=== PATIENT | male | born 1970 | race Caucasian/White ===

== ENCOUNTER 2023-05-30 07:03 | Outpatient (OUT) | payer BC, SELFPAY ==
[2023-05-30 08:48] LABS: Prostate Specific Antigen Scrn 0.31 ng/mL (<=4.00)
[2023-05-30 09:12] LABS: Alanine Aminotransferase 26 U/L (16-63); Albumin Globulin Ratio 0.9; Albumin Level 3.4 g/dL (3.4-5.0); Alkaline Phosphatase 63 U/L (46-116); Anion Gap 14.4; Aspartate Amino Transferase 18 U/L (15-37); BUN Creatinine Ratio 20.5; Bilirubin Total 0.6 mg/dL (0.2-1.0); Calcium 8.3 mg/dL (8.5-10.1); Carbon Dioxide 25.5 mmol/L (21.0-32.0); Chloride 101 mmol/L (98-107); Chol HDL Ratio 3.6; Cholesterol 138 mg/dL (<=200); Estimated GFR (African America >60 (>=60); Estimated GFR (Non-African Ame >60 (>=60); Globulin 3.7 g/dL; Glucose 108 mg/dL (74-106); HDL Cholesterol 38 mg/dL (40-60); Potassium 3.9 mmol/L (3.5-5.1); Sodium 137 mmol/L (136-145); Thyroid Stimulating Hormone 0.078 uIU/mL (0.358-3.740); Total Protein 7.1 g/dL (6.4-8.2); Triglycerides 254 mg/dL (<=150); VLDL CHOLESTEROL 50.8 mg/dL
[2023-05-30 10:05] LABS: Estimated Average Glucose 160 mg/dL; Glycohemoglobin A1C 7.2 % (4.5-6.2)
[2023-05-30 11:40] LABS: Basophils Absolute Auto 0.1 10^3/uL (0.0-0.1); Basophils Percent Auto 1.2 % (0.2-2.0); Eosinophils Absolute Auto 0.3 10^3/uL (0.0-0.7); Eosinophils Percent Auto 3.7 % (0.9-7.0); Hematocrit 47.1 % (42.0-54.0); Hemoglobin 15.8 g/dL (14.0-18.0); Immature Granulocytes Abs Auto 0.04 10^3/uL (0.00-0.03); Immature Granulocytes Pct Auto 0.6 % (0.0-0.5); Lymphocytes Percent Auto 29.8 % (20.5-60.0); Mean Corpuscular HGB Conc 33.5 g/dL (29.9-35.2); Mean Corpuscular Hemoglobin 28.5 pg (25.9-34.0); Mean Corpuscular Volume 84.9 fL (80.0-94.0); Mean Platelet Volume 12.2 fL (9.5-13.5); Monocytes Absolute Auto 0.6 10^3/uL (0.3-0.8); Monocytes Percent Auto 9.4 % (1.7-12.0); Neutrophils Absolute Auto 3.7 10^3/uL (1.4-6.5); Neutrophils Percent Auto 55.3 % (43.0-75.0); Platelet Count 132 10^3/uL (150-450); Red Blood Count 5.55 10^6/uL (4.70-6.10); Red Cell Distribution Width 13.8 % (11.0-15.0); White Blood Count 6.7 10^3/uL (4.0-11.0)
[2023-06-01 12:07] LABS: Insulin 12.4 uIU/mL (2.6-24.9)
== END 2023-05-30 07:04 | disposition home or self-care (01) ==
LOC: LAB 07:06
PROVIDERS: PCP Family Medicine; Visit Provider Family Medicine
DX: Z00.00 Encounter for general adult medical examination without abnormal findings (principal)
CPT/HCPCS: 36415; 80053; 80061; 83036; 83525; 84436; 84443; 84481; 85025; G0103

== ENCOUNTER 2024-05-29 06:32 | Outpatient (OUT) | payer BC, SELFPAY ==
--- OUTSIDE RECORDS SUMMARY | 2024-05-29 06:33 | XMS_ITS | CCD ---
Author Organization [facility] Inform ion Partnership [facility] Care Team Providers Care Calendar Control Clerk [facility] Name Role Phone PHYSICIAN, DEFAULT Unavailable Unavailable PHYSICIAN, DEFAULT Unavailable Unavailable MONI ESPINO Unavailable Unavailable Moni Espino Primary Care Physician DR MONI ESPINO Admitting Unavailable DR MONI ESPINO Attending Unavailable DR MONI ESPINO Primary Care Unavailable DR MONI ESPINO Consulting Unavailable Allergies Allergy Classification Reported Allergen(s) Allergy Type Date of Onset Reaction(s) Facility (4 sources) Penicillin; Translations: [penicillin] Drug Allergy Eruption of skin (disorder) [facility] Medications Current Medications Medication Drug Class(es) Dates Sig (Normalized) Sig (Original) acetaminophen 325 mg / oxyCODONE hydrochloride 5 mg oral tablet (1 source) Opioid Agonist Start: 11-22-2021 End: 11-27-2021 Percocet 5 mg-325 mg oral tablet 1 tab(s), Oral, q6hr Pain 8-10, 20 tab(s), Refill(s) 0, [id number], 162, cm, 11/19/21 6:31:00 EDT, Height/Length Dosing, 123.5, kg, 11/19/21 6:31:00 EDT, Weight Dosing Start Date: 11/22/21 Stop Date: 11/27/21 Status: Ordered cephalexin 500 mg oral capsule (1 source) Cephalosporin Antibacterial Start: 11-16-2021 take 1 capsule by mouth every twelve hours cephalexin 500 mg Cap 500 mg = 1 cap(s), Oral, q12hr, Refills(s) 0, Infection or prophylaxis for antibiotics Start Date: 11/16/21 Status: Ordered doxycycline hyclate 100 mg oral capsule (1 source) Tetracycline-class Drug Start: 11-22-2021 take 1 capsule by mouth twice daily doxycycline hyclate 100 mg Cap 100 mg = 1 cap(s), Oral, BID, # 10 tab(s), Refills(s) 0, Pharmacy: [id number], 162, cm, 11/19/21 6:31:00 EDT, Height/Length Dosing, 123.5, kg, 11/19/21 6:31:00 EDT, Weight Dosing Start Date: 11/22/21 Status: Ordered empagliflozin 25 mg oral tablet (3 sources) Sodium-Glucose Cotransporter 2 Inhibitor Start: 11-16-2021 take 1 tablet by mouth once daily in the morning Jardiance 25 mg oral tablet 25 mg = 1 tab(s), Oral, qAM, Refills(s) 0, Blood glucose Start Date: 11/16/21 Status: Ordered fenofibrate 145 mg oral tablet (3 sources) Peroxisome Proliferator Receptor alpha Agonist Start: 11-16-2021 take 1 tablet by mouth once daily fenofibrate 145 mg Tab 145 mg = 1 tab(s), Oral, Daily, Refills(s) 0, High cholesterol Start Date: 11/16/21 Status: Ordered fluconazole 100 mg oral tablet (1 source) Azole Antifungal Start: 02-14-2022 End: 02-21-2022 take 1 tablet by mouth once daily Diflucan 100 mg Tab 100 mg = 1 tab(s), Oral, Daily, X 7 day(s), # 7 tab(s), Refills(s) 0, Pharmacy: [id number], 163, cm, 02/14/22 15:35:00 EDT, Height/Length Dosing, 126, kg, 02/14/22 15:35:00 EDT, Weight Dosing Start Date: 02/14/22 Stop Date: 02/21/22 Status: Ordered glimepiride 4 mg oral tablet (3 sources) Sulfonylurea Start: 11-16-2021 take 1 tablet by mouth twice daily glimepiride 4 mg Tab 4 mg = 1 tab(s), Oral, BID, Refills(s) 0, Blood glucose Start Date: 11/16/21 Status: Ordered levETIRAcetam 750 mg oral tablet (3 sources) Start: 09-04-2021 take 750 mg by mouth twice daily Keppra 750 mg, Oral, BID, Refills(s) 0, Other (see comment) Start Date: 09/04/21 Status: Ordered levothyroxine sodium 0.2 mg oral tablet (3 sources) l-Thyroxine Start: 11-16-2021 take 1 tablet by mouth once daily Synthroid 200 mcg (0.2 mg) Tab 200 mcg = 1 tab(s), Oral, Daily, Refills(s) 0, Thyroid Start Date: 11/16/21 Status: Ordered Start: 11-16-2021 take 1 tablet by marino th once daily Synthroid 200 mcg (0.2 mg) Tab 200 mcg = 1 tab(s), Oral, Daily, Refills(s) 0, Thyroid Start Date: 11/16/21 Status: Ordered metFORMIN hydrochloride 500 mg oral tablet (3 sources) Biguanide Start: 11-16-2021 take 1 tablet by mouth twice daily metformin 500 mg oral tablet 500 mg = 1 tab(s), Oral, BID, Refills(s) 0, Blood glucose Start Date: 11/16/21 Status: Ordered miconazole nitrate 0.02 mg/mg topical ointment (2 sources) Azole Antifungal Start: 02-14-2022 apply 15 g topically twice daily miconazole topical 2% ointment See Instructions, 15 gm, Refill(s) 0, apply to the effected area BID for 2 weeks, [id number], 163, cm, 02/14/22 15:35:00 EDT, Height/Length Dosing, 126, kg, 02/14/22 15:35:00 EDT, Weight Dosing Start Date: 02/14/22 Status: Ordered OXcarbazepine 150 mg oral tablet (3 sources) Anti-epileptic Agent Start: 11-16-2021 take 1 tablet by mouth twice daily oxcarbazepine 150 mg Tab 150 mg = 1 tab(s), Oral, BID, Refills(s) 0, Seizure Start Date: 11/16/21 Status: Ordered pioglitazone 45 mg oral tablet (3 sources) Peroxisome Proliferator Receptor alpha Agonist, Peroxisome Proliferator Receptor gamma Agonist, Thiazolidinedione Start: 11-16-2021 take 1 tablet by mouth once daily pioglitazone 45 mg Tab 45 mg = 1 tab(s), Oral, Daily, Refills(s) 0, Blood glucose Start Date: 11/16/21 Status: Ordered sildenafil 100 mg oral tablet (1 source) Phosphodiesterase 5 Inhibitor Start: 03-11-2022 sildenafil 100 mg Tab 100 mg = 1 tab(s), Oral, As Directed, Take 30-45 minutes prior to sexual activity., # 30 tab(s), Refills(s) 1, Pharmacy: [id number], 163, cm, 03/11/22 11:25:00 EDT, Height/Length Dosing, 126, kg, 03/11/22 11:25:00 EDT, Weight Dosing Start Date: 03/11/22 Status: Ordered SITagliptin 100 mg oral tablet (3 sources) Dipeptidyl Peptidase 4 Inhibitor Start: 11-16-2021 take 1 tablet by mouth at bedtime Januvia 100 mg Tab 100 mg = 1 tab(s), Oral, Bedtime, Refills(s) 0, Blood glucose Start Date: 11/16/21 Status: Ordered tamsulosin hydrochloride 0.4 mg oral capsule (2 sources) alpha-Adrenergic Twin Start: 02-14-2022 take 1 capsule by mouth twice daily tamsulosin 0.4 mg Cap 0.4 mg = 1 cap(s), Oral, BID, # 60 cap(s), Refills(s) 11, Pharmacy: [id number], 163, cm, 02/14/22 15:35:00 EDT, Height/Length Dosing, 126, kg, 02/14/22 15:35:00 EDT, Weight Dosing Start Date: 02/14/22 Status: Ordered verapamil hydrochloride 180 mg extended release oral tablet (3 sources) Calcium Channel Twin Start: 11-16-2021 take 1 tablet by mouth at bedtime verapamil 180 mg ER Tab 180 mg = 1 tab(s), Oral, Bedtime, Refills(s) 0, High blood pressure Start Date: 11/16/21 Status: Ordered Problems Active Problems Problem Classification Problem Date Documented Date Episodic/Chronic Diabetes mellitus without complication (3 sources) Diabetes mellitus 11-16-2021 Chronic Disorders of lipid metabolism (3 sources) Hypercholesterolemia 11-16-2021 Chronic Epilepsy; convulsions (3 sources) Seizure 11-19-2021 Episodic Essential hypertension (3 sources) Hypertensive disorder 11-16-2021 Chronic Genitourinary symptoms and ill-defined conditions (4 sources) Dysuria; Translations: [Nocturia] 02-14-2022 Episodic Hyperplasia of prostate (4 sources) Benign prostatic hypertrophy with outflow obstruction; Translations: [Benign prostatic hyperplasia with lower urinary tract symptoms] Onset: 2 Chronic Miscellaneous mental health disorders (1 source) Male erectile disorder; Translations: [Erectile dysfunction] Onset: 2 Chronic Other male genital disorders (1 source) Impotence 03-11-2022 Chronic Other male genital disorders (5 sources) Phimosis; Translations: [Phimosis] Onset: 2 11-16-2021 Episodic Other nutritional; endocrine; and metabolic disorders (2 sources) Body mass index 40+ - severely obese 12-13-2021 Chronic Other screening for suspected conditions (not mental disorders or infectious disease) (1 source) Encounter for screening for malignant neoplasm of prostate; Translations: [ENC SCREEN MALIG NEOPLASM PROSTATE] Onset: 2 Episodic Residual codes; unclassified (3 sources) At risk of disease 11-16-2021 Episodic Past or Other Problems Problem Classification Problem Date Documented Da te Episodic/Chronic Other injuries and conditions due to external causes (3 sources) H/O: head injury Onset: 08-04-2016 11-16-2021 Episodic Comment on above: fell off a ladder Results Test Name Value Interpretation Reference Range Facility INSULINon 06-22-2022 Insulin 8.5 uIU/mL Normal 2.6-24.9 [facility] Comment on above: Performed By: #### I NSULIN #### [facility] [address] [address] [address] Denise Mason CBC AUTO DIFFon 06-21-2022 BASO # 0.1 103/ul Normal 0.0-0.1 [facility] Comment on above: Performed By: #### C BC #### [facility] [address] [address] [address] Denise Mason Basophils/100 WBC (Bld) 1.0 % Normal 0.2-2.0 [facility] Comment on above: Performed By: #### C BC #### [facility] [address] [address] [address] Denise Mason EO # 0.3 103/ul Normal 0.0-0.7 [facility] Comment on above: Performed By: #### C BC #### [facility] [address] [address] [address] Denise Mason Eosinophils/100 WBC (Bld) 3.0 % Normal 0.9-7.0 [facility] Comment on above: Performed By: #### C BC #### [facility] [address] [place] [address] Dr. Denise Mason Erythrocyte distribution width (RBC) [Ratio] 14.2 % Normal 11.0-15.0 [facility] Comment on above: Performed By: #### C BC #### [facility] [address] [place] [address] Dr. Denise Mason Hematocrit (Bld) [Volume fraction] 50.3 % Normal 42.0-54.0 [facility] Comment on above: Performed By: #### C BC #### [facility] [address] [place] [address] Dr. Denise Mason Hemoglobin (Bld) [Mass/Vol] 16.3 g/dL Normal 14.0-18.0 [facility] Comment on above: Performed By: #### C BC #### [facility] [address] [place] [address] Dr. Denise Mason IG # 0.05 10e3/ul Critically high 0.00-0.03 [facility] Comment on above: Performed By: #### C BC #### [facility] [address] [place] [address] Dr. Denise Mason IG % 0.6 % Critically high 0.0-0.5 [facility] Comment on above: Performed By: #### C BC #### [facility] [address] [place] [address] Dr. Denise Mason LYMPH # 2.4 103/ul Normal 1.2-3.8 [facility] Comment on above: Performed By: #### C BC #### [facility] [address] [place] [address] Dr. Denise Mason Lymphocytes/100 WBC (Bld) 29.0 % Normal 20.5-60.0 [facility] Comment on above: Performed By: #### C BC #### [facility] [address] [place] [address] Dr. Denise Mason MANUAL DIFF REQ NO Normal [facility] Comment on above: Performed By: #### C BC #### [facility] [address] [place] [address] Dr. Denise Mason MCH (RBC) [Entitic mass] 26.8 pg Normal 25.9-34.0 [facility] Comment on above: Performed By: #### C BC #### [facility] [address] [place] [address] Dr. Denise Mason MCHC (RBC) [Mass/Vol] 32.4 g/dL Normal 29.9-35.2 [facility] Comment on above: Performed By: #### C BC #### [facility] [address] [place] [address] Dr. Denise Mason MCV (RBC) [Entitic vol] 82.7 fL Normal 80.0-94.0 [facility] Comment on above: Performed By: #### C BC #### [facility] [address] [place] [address] Dr. Denise Mason MONO # 0.7 103/ul Normal 0.3-0.8 [facility] Comment on above: Performed By: #### C BC #### [facility] [address] [place] [address] Dr. Denise Mason Monocytes/100 WBC (Bld) 9.0 % Normal 1.7-12.0 [facility] Comment on above: Performed By: #### C BC #### [facility] [address] [place] [address] Dr. Denise Mason NEUT # 4.7 103/ul Normal 1.4-6.5 [facility] Comment on above: Performed By: #### C BC #### [facility] [address] [place] [address] Dr. Denise Mason Neutrophils/100 WBC (Bld) 57.4 % Normal 43.0-75.0 [facility] Comment on above: Performed By: #### C BC #### [facility] [address] [address] [address] Denise Mason Platelet mean volume (Bld) [Entitic vol] 10.5 fL Normal 9.5-13.5 [facility] Comment on above: Performed By: #### C BC #### [facility] [address] [address] [address] Denise Mason PLT 212 103/ul Normal 150-450 [facility] Comment on above: Performed By: #### C BC #### [facility] [address] [address] [address] Denise Mason RBC 6.08 106/ul Normal 4.70-6.10 [facility] Comment on above: Performed By: #### C BC #### [facility] [address] [place] [address] Dr. Denise Mason WBC 8.3 103/ul Normal 4.0-11.0 [facility] Comment on above: Performed By: #### C BC #### [facility] [address] [place] [address] Dr. Denise Mason GLYCOHEMOGLOBIN A1Con 2021 ADA RECOMMENDATION SEE BELOW Normal [facility] Comment on above: Result Comment: ADA RECOMMENDED LIMIT 4.0 - 6.0 ADA THERAPEUTIC TARGET < 7.0 ACTION SUGGESTED > 7.0 Performed By: #### A 1C #### [facility] [address] [place] [address] Dr. Denise Mason Glucose [Mass/Vol] 169 mg/dL Normal [facility] Comment on above: Performed By: #### A 1C #### [facility] [address] [place] [address] Dr. Denise Mason HbA1c (Bld) [Mass fraction] 7.5 % Critically high 4.5-6.2 [facility] Comment on above: Performed By: #### A 1C #### [facility] [address] [place] [address] Dr. Denise Mason LIPID PROFILEon 06-21-2022 CHOL-HDL RATIO NORM SEE BELOW Normal [facility] Comment on above: Result Comment: 3.3 - 4.4 LOW RISK 4.4 - 7.1 AVERAGE RISK 7.1 - 11.0 MODERATE RISK >11.0 HIGH RISK Performed By: #### C MP, LIPID, URIC #### [facility] [address] [address] [address] Denise Mason Cholesterol [Mass/Vol] 240 mg/dL Critically high <=200 [facility] Comment on above: Performed By: #### C MP, LIPID, URIC #### [facility] [address] [address] [address] Denise Mason Cholesterol in HDL [Mass/Vol] 44 mg/dL Normal 40-60 [facility] Comment on above: Performed By: #### C MP, LIPID, URIC #### [facility] [address] [place] [address] Dr. Denise Mason Cholesterol in LDL [Mass/Vol] 151.6 mg/dL Normal [facility] Comment on above: Performed By: #### C MP, LIPID, URIC #### [facility] [address] [place] [address] Dr. Denise Mason Cholesterol.total/Ch olesterol in HDL [Mass ratio] 5.5 {ratio} Normal [facility] Comment on above: Performed By: #### C MP, LIPID, URIC #### [facility] [address] [address] [address] Denise Mason HDL NORMAL > or = 60 mg/dl - LO W CARDIOVASCULAR RISK <40 mg/dl - HIGH CARDIOVASCULAR RISK Normal [facility] Comment on above: Performed By: #### C MP, LIPID, URIC #### [facility] [address] [address] [address] Denise Mason LDL CALC NORMAL SEE BELOW Normal [facility] Comment on above: Result Comment: <100 mg/dl OPTIMAL 100 - 129 mg/dl NEAR OR ABOVE OPTIMAL 130 - 159 mg/dl BORDERLINE HIGH 160 - 189 mg/dl HIGH >190 mg/dl VERY HIGH Performed By: #### C MP, LIPID, URIC #### [facility] [address] [address] [address] Denise Mason Triglyceride [Mass/Vol] 222 mg/dL Critically high <=150 [facility] Comment on above: Performed By: #### C MP, LIPID, URIC #### [facility] [address] [place] [address] Dr. Denise Mason VLDL CALC 44.4 mg/dL Normal [facility] Comment on above: Performed By: #### C MP, LIPID, URIC #### [facility] [address] [place] [address] Dr. Denise Mason PROF 14(COMP METB)on 022 Albumin [Mass/Vol] 3.9 g/dL Normal 3.4-5.0 [facility] Comment on above: Performed By: #### C MP, LIPID, URIC #### [facility] [address] [place] [address] Dr. Denise Mason Albumin/Globulin [Mass ratio] 1.0 {ratio} Normal [facility] Comment on above: Performed By: #### C MP, LIPID, URIC #### [facility] [address] [place] [address] Dr. Denise Mason ALP [Catalytic activity/Vol] 43 U/L Critically low 46-116 [facility] Comment on above: Performed By: #### C MP, LIPID, URIC #### [facility] [address] [place] [address] Dr. Denise Mason ALT [Catalytic activity/Vol] 31 U/L Normal 16-63 [facility] Comment on above: Performed By: #### C MP, LIPID, URIC #### [facility] [address] [place] [address] Dr. Denise Mason Anion gap [Moles/Vol] 12.0 mmol/L Normal [facility] Comment on above: Performed By: #### C MP, LIPID, URIC #### [facility] [address] [place] [address] Dr. Denise Mason AST [Catalytic activity/Vol] 22 U/L Normal 15-37 [facility] Comment on above: Performed By: #### C MP, LIPID, URIC #### [facility] [address] [place] [address] Dr. Denise Mason Bilirubin [Mass/Vol] 0.4 mg/dL Normal 0.2-1.0 [facility] Comment on above: Performed By: #### C MP, LIPID, URIC #### [facility] [address] [address] [address] Denise Mason Calcium [Mass/Vol] 9.2 mg/dL Normal 8.5-10.1 [facility] Comment on above: Performed By: #### C MP, LIPID, URIC #### [facility] [address] [address] [address] Denise Mason Chloride [Moles/Vol] 99 mmol/L Normal 98-107 [facility] Comment on above: Performed By: #### C MP, LIPID, URIC #### [facility] [address] [place] [address] Dr. Denise Mason CO2 [Moles/Vol] 24.4 mmol/L Normal 21.0-32.[address] [facility] Comment on above: Performed By: #### C MP, LIPID, URIC #### [facility] [address] [place] [address] Dr. Denise Mason Creatinine [Mass/Vol] 1.01 mg/dL Normal 0.70-1.30 [facility] Comment on above: Performed By: #### C MP, LIPID, URIC #### [facility] [address] [place] [address] Dr. Denise Mason EGFR-AF JORDANIAN >60 Normal >=[address] [facility] Comment on above: Performed By: #### C MP, LIPID, URIC #### [facility] [address] [place] [address] Dr. Denise Mason EGFR-NON AF JORDANIAN >60 Normal >=60 [facility] Comment on above: Performed By: #### C MP, LIPID, URIC #### [facility] [address] [place] [address] Dr. Denise Mason Globulin (S) [Mass/Vol] 3.9 g/dL Normal [facility] Comment on above: Performed By: #### C MP, LIPID, URIC #### [facility] [address] [address] [address] Denise Mason Glucose [Mass/Vol] 137 mg/dL Critically high 74-106 [facility] Comment on above: Performed By: #### C MP, LIPID, URIC #### [facility] [address] [address] [address] Denise Mason Potassium [Moles/Vol] 4.4 mmol/L Normal 3.5-5.1 [facility] Comment on above: Performed By: #### C MP, LIPID, URIC #### [facility] [address] [address] [address] Denise Mason Protein [Mass/Vol] 7.8 g/dL Normal 6.4-8.2 [facility] Comment on above: Performed By: #### C MP, LIPID, URIC #### [facility] [address] [place] [address] Dr. Denise Mason Sodium [Moles/Vol] 131 mmol/L Critically low 136-145 Th [facility] Comment on above: Performed By: #### C MP, LIPID, URIC #### [facility] [address] [address] [address] Denise Mason Urea nitrogen [Mass/Vol] 21.0 mg/dL Critically high 7.0-18.0 [facility] Comment on above: Performed By: #### C MP, LIPID, URIC #### [facility] [address] [address] [address] Denise Mason Urea nitrogen/Creatinine [Mass ratio] 20.8 mg/mg Normal [facility] Comment on above: Performed By: #### C MP, LIPID, URIC #### [facility] [address] [address] [address] Denise Mason URIC ACID SERUMon 06-21-2022 Urate [Mass/Vol] 4.9 mg/dL Normal 3.5-7.2 [facility] Comment on above: Performed By: #### C MP, LIPID, URIC #### [facility] [address] [address] [address] Denise Mason Ambulatory Visit Summaryon 0 03-11-2022 Ambulatory Visit Summary CORNELIUS OLGUIN :1970 Visit Date:03/11/2022 Ambulatory Visit Instructions Your Diagnosis BPH with urinary obstruction Erectile dysfunction Phimosis Your Care Team Attending Physician - Neto Keith MD, Landen Chapa Primary Care Physician - Moni Espino MD This Is Your Medications List tamsulosin (tamsulosin 0.4 mg Cap) Contact prescribing physician if questions or concerns empagliflozin (Jardiance 25 mg oral tablet) fenofibrate (fenofibrate 145 mg Tab) glimepiride (glimepiride 4 mg Tab) levetiracetam (Keppra) levothyroxine (Synthroid 200 mcg (0.2 mg) Tab) metformin (metformin 500 mg oral tablet) miconazole topical (miconazole topical 2% ointment) oxcarbazepine (oxcarbazepine 150 mg Tab) pioglitazone (pioglitazone 45 mg Tab) sitagliptin (Januvia 100 mg Tab) verapamil (verapamil 180 mg ER Tab) Procedures Performed Circumcision (11/22/2021), Colonoscopy. Discharge Vitals Height 163.0 cm Height 163 cm Weight 126.0 kg Weight 126 kg BMI 47.42 What to do next You Need to Schedule the Following Appointments Follow Up with Neto Keith MD, Landen Chapa, URO When: Where: [facility] [address], [place] [address]- Medications What How Much When Instructions Unchanged tamsulosin (tamsulosin 0.4 mg Cap) 1 Capsules By Mouth 2 times a day Unchanged empagliflozin (Jardiance 25 mg oral tablet) 1 Tablets By Mouth Once a day (in the morning) Contact prescribing physician if questions or concerns Unchanged fenofibrate (fenofibrate 145 mg Tab) 1 Tablets By Mouth Every day Contact prescribing physician if questions or concerns Unchanged glimepiride (glimepiride 4 mg Tab) 1 Tablets By Mouth 2 times a day Contact prescribing physician if questions or concerns Unchanged levetiracetam (Keppra) 750 Milligram By Mouth 2 times a day Contact prescribing physician if questions or concerns Unchanged levothyroxine (Synthroid 200 mcg (0.2 mg) Tab) 1 Tablets By Mouth Every day Contact prescribing physician if questions or concerns Unchanged metformin (metformin 500 mg oral tablet) 1 Tablets By Mouth 2 times a day Contact prescribing physician if questions or concerns Unchanged miconazole topical (miconazole topical 2% ointment) See instructions apply to the effected area BID for 2 weeks Contact prescribing physician if questions or concerns Unchanged oxcarbazepine (oxcarbazepine 150 mg Tab) 1 Tablets By Mouth 2 times a day Contact prescribing physician if questions or concerns Unchanged pioglitazone (pioglitazone 45 mg Tab) 1 Tablets By Mouth Every day Contact prescribing physician if questions or concerns Unchanged sitagliptin (Januvia 100 mg Tab) 1 Tablets By Mouth At bedtime Contact prescribing physician if questions or concerns Unchanged verapamil (verapamil 180 mg ER Tab) 1 Tablets By Mouth At bedtime Contact prescribing physician if questions or concerns Allergies penicillin (Rash) Problems Ongoing - Any problem that you are currently receiving treatment for. BMI 45.0-49.9, adult BPH with urinary obstruction Dysuria Erectile dysfunction Nocturia Phimosis [employer] Erectile Dysfunction Erectile dysfunction (ED) is the inability to get or keep an erection in order to have sexual intercourse. Erectile dysfunction may include: ? Inability to get an erection. ? Lack of enough hardness of the erection to allow penetration. ? Loss of the erection before sex is finished. What are the causes? This condition may be caused by: ? Certain medicines, such as: ? Pain relievers. ? Antihistamines. ? Antidepressants. ? Blood pressure medicines. ? Water pills (diuretics). ? Ulcer medicines. ? Muscle relaxants. ? Drugs. ? Excessive drinking. ? Psychological causes, such as: ? Anxiety. ? Depression. ? Sadness. ? Exhaustion. ? Performance fear. ? Stress. ? Physical causes, such as: ? Artery problems. This may include diabetes, smoking, liver disease, or atherosclerosis. ? High blood pressure. ? Hormonal problems, such as low testosterone. ? Obesity. ? Nerve problems. This may include back or pelvic injuries, diabetes mellitus, multiple sclerosis, or Parkinson disease. What are the signs or symptoms? Symptoms of this condition include: ? Inability to get an erection. ? Lack of enough hardness of the erection to allow penetration. ? Loss of the erection before sex is finished. ? Normal erections at some times, but with frequent unsatisfactory episodes. ? Low sexual satisfaction in either partner due to erection problems. ? A curved penis occurring with erection. The curve may cause pain or the penis may be too curved to allow for intercourse. ? Never having nighttime erections. How is this diagnosed? This condition is often diagnosed by: ? Performing a physical exam to find other diseases or specific problems with the (more content not included)... [facility] Patient Educationon 03-11-20 Patient Education Urology Erectile Dysfunction Erectile dysfunction (ED) is the inability to get or keep an erection in order to have sexual intercourse. Erectile dysfunction may include: ? Inability to get an erection. ? Lack of enough hardness of the erection to allow penetration. ? Loss of the erection before sex is finished. What are the causes? This condition may be caused by: ? Certain medicines, such as: ? Pain relievers. ? Antihistamines. ? Antidepressants. ? Blood pressure medicines. ? Water pills (diuretics). ? Ulcer medicines. ? Muscle relaxants. ? Drugs. ? Excessive drinking. ? Psychological causes, such as: ? Anxiety. ? Depression. ? Sadness. ? Exhaustion. ? Performance fear. ? Stress. ? Physical causes, such as: ? Artery problems. This may include diabetes, smoking, liver disease, or atherosclerosis. ? High blood pressure. ? Hormonal problems, such as low testosterone. ? Obesity. ? Nerve problems. This may include back or pelvic injuries, diabetes mellitus, multiple sclerosis, or Parkinson disease. What are the signs or symptoms? Symptoms of this condition include: ? Inability to get an erection. ? Lack of enough hardness of the erection to allow penetration. ? Loss of the erection before sex is finished. ? Normal erections at some times, but with frequent unsatisfactory episodes. ? Low sexual satisfaction in either partner due to erection problems. ? A curved penis occurring with erection. The curve may cause pain or the penis may be too curved to allow for intercourse. ? Never having nighttime erections. How is this diagnosed? This condition is often diagnosed by: ? Performing a physical exam to find other diseases or specific problems with the penis. ? Asking you detailed questions about the problem. ? Performing blood tests to check for diabetes mellitus or to measure hormone levels. ? Performing other tests to check for underlying health conditions. ? Performing an ultrasound exam to check for scarring. ? Performing a test to check blood flow to the penis. ? Doing a sleep study at home to measure nighttime erections. How is this treated? This condition may be treated by: ? Medicine taken by mouth to help you achieve an erection (oral medicine). ? Hormone replacement therapy to replace low testosterone levels. ? Medicine that is injected into the penis. Your health care provider may instruct you how to give yourself these injections at home. ? Vacuum pump. This is a pump with a ring on it. The pump and ring are placed on the penis and used to create pressure that helps the penis become erect. ? Penile implant surgery. In this procedure, you may receive: ? An inflatable implant. This consists of cylinders, a pump, and a reservoir. The cylinders can be inflated with a fluid that helps to create an erection, and they can be deflated after intercourse. ? A semi-rigid implant. This consists of two silicone rubber rods. The rods provide some rigidity. They are also flexible, so the penis can both curve downward in its normal position and become straight for sexual intercourse. ? Blood vessel surgery, to improve blood flow to the penis. During this procedure, a blood vessel from a different part of the body is placed into the penis to allow blood to flow around (bypass) damaged or blocked blood vessels. ? Lifestyle changes, such as exercising more, losing weight, and quitting smoking. Follow these instructions at home: Medicines ? Take [id number] and prescription medicines only as told by your health care provider. Do not increase the dosage without first discussing it with your health care provider. ? If you are using self-injections, perform injections as directed by your health care provider. Make sure to avoid any veins that are on the surface of the penis. After giving an injection, apply pressure to the injection site for 5 minutes. General instructions ? Exercise regularly, as directed by your health care provider. Work with your health care provider to lose weight, if needed. ? Do not use any products that contain nicotine or tobacco, such as cigarettes and e-cigarettes. If you need help quitting, ask your health care provider. ? Before using a vacuum pump, read the instructions that come with the pump and discuss any questions with your health care provider. ? Keep all follow-up visits as told by your health care provider. This is important. Contact a health care provider if: ? You feel nauseous. ? You vomit. Get help right away if: ? You are taking oral or injectable medicines and you have an erection that lasts longer than 4 hours. If your health care provider is unavailable, go to the nearest emergency room for evaluation. An erection that lasts much longer than 4 hours can result in permanent damage to your penis. ? You have severe pain in your groin or abdomen. ? You develop redness or severe swelling of your (more content not included)... [facility] Urology Office/Clinic Noteon 03-11-2022 Urology Office/Clinic Note Chief Complaint 1 month This patient has a history of phimosis that been treated with circumcision. He later had balanitis that was treated with oral and topical medications. At present he complains of erectile dysfunction which he states began after he started taking tamsulosin twice a day. He is voiding with good stream and good control. HPI Staff This is a 51 year old male here for 1 month F/U. S/P Circumcision done 11/22/21. Pt. taking Flomax 0.4mg qd. Previous DX: BPH w/LUTS and phimosis. Pain with urination:No Blood in urine:No Incomplete bladder emptying:No Frequency:No Urgency:No Nocturia:No Stream:Strong Leaking before getting to the restroom:No Urinary incontinence without sensory awareness:No Temporarily unable to restrain urination with body movement:No Flank/Back pain:No Abdominal pain:No Male genital symptoms penile:Pt. states since having Circumcision he is having issues with erections. History of Present Illness Tests reviewed: none. I have reviewed the previous health record information and history for this patient from Dr. Duque. I have reviewed and verified the staff HPI to be accurate for this encounter. There have been no associated fever, chills, flank pain, or blood in the urine. Denies any urinary infections since last encounter. Review of Systems ROS - Provider Constitutional: denies weight loss, denies hot flashes. Eyes: denies eye problems. Gastrointestinal: denies nausea, denies vomiting. Cardiovascular: denies chest pain or angina. Integumentary: no dryness Musculoskeletal: denies musculoskeletal symptoms. ENMT: denies otolaryngeal symptoms. Respiratory: no shortness of breath. Heme/Lymph: denies easy bleeding tendency, denies easy bruising tendency. Psychiatric: no confusion, no anxiety. Genitourinary: denies dysuria, denies hematuria, denies discharge, denies urinary frequency, denies urinary hesitancy, denies nocturia, denies incontinence, denies genital sores, denies decreased libido, and denies erectile dysfunction. Physical Exam Vitals & Measurements HT: 163.0 cm HT: 163 cm WT: 126.0 kg WT: 126 kg BMI: 47.42 General Appearance: alert, no distress, well nourished, well developed male. Genitourinary: normal scrotum, normal testes, normal urethra, normal epididymis, normal vas deferens/spermatic cord. Flank Pain: none. Bladder: nonpalpable. Assessment/Plan Patient will be prescribed sildenafil 100 mg for his erectile dysfunction. We discussed the risk, alternatives and potential complications of the use of this medication. It is very likely he will only need it for short period of time. He does have 30 tablets with a refill. He is going to continue tamsulosin and 0.4 mg twice a day. We will see him back in the office on an as-needed basis. 1. BPH with urinary obstruction (N40.1: Benign prostatic hyperplasia with lower urinary tract symptoms) Pt to continue Tamsulosin 0.4mg BID, pt states PCP increased to BID. Pt states he is doing well w/ urination. Denies any bothersome urinary sxs at this time. All questions/concerns were discussed. Pt. to call the office if he encounters any issues prior. Pt. acknowledges understanding. 2. Male erectile disorder (F52.21: Male erectile disorder) Pt states he has not been able to achieve an erection since PCP increased Flomax. Pt is diabetic. Discussed options for ED, including oral medications, erection pumps, MUSE intraurethral pellet, intracorporal injection therapy, and surgical options. Will start Sildenafil 100mg PRN. Discussed the medication side effects, and the patient will monitor closely for these, as well as for symptom improvement. If severe side effects occur, the medication should be stopped and the office notified. 3. Phimosis (N47.1: Phimosis) S/p Circumcision 11/22/21. Pt fully healed since surgery, pain has resolved. Orders: sildenafil, 100 mg = 1 tab(s), Oral, As Directed, Take 30-45 minutes prior to sexual activity., # 30 tab(s), Refills(s) 1, Pharmacy: [facility]/pharmacy #[id number], 163, cm, 03/11/22 11:25:00 EDT, Height/Length Dosing, 126, kg, 03/11/22 11:25:00 EDT, Weight Dosing Follow-up With When Contact Information Neto Keith MD, Landen Chapa, [facility] [address] [place] [address]- Additional Instructions: PRN Patient Education Erectile Dysfunction I, Mia Singh, personally scribed for Dr. Duque on 03/11/2022 11:40:56. . Documentation recorded by the scribe,Mia Singh, accurately reflects the services(s) I performed and decisions made by me. Authenticated by Dr. Duque on 03/11/2022 11:44:40. Problem List/Past Medical History Ongoing BMI 45.0-49.9, adult BPH with urinary obstruction Dysuria Erectile dysfunction Nocturia Phimosis Historical No qualifying data Procedure/Surgical History Circumcision (11/22/2021), Colonoscopy. Medications fenofibrate 145 mg Tab, 145 mg= 1 tab(s), Oral, D (more content not included)... [facility] Comment on above: Result Comment: Elec tronically Signed By: Landen Duque Jr., MD\.br\Date and Time Signed: 03/11/22 11:45 EDT\.br\Electronically Co-Signed By: Mia Singh\.br\Date and Time Co-Signed: 03/11/22 11:41 EDT Ambulatory Visit Summaryon 0 02-14-2022 Ambulatory Visit Summary CORNELIUS OLGUIN :1970 Visit Date:02/14/2022 Ambulatory Visit Instructions Your Diagnosis BPH with urinary obstruction Phimosis Tests Performed Urnls Dip Stick Auto w/o Microscopy POC 43025 Your Care Team Attending Physician - GINA VICTORIA PA-C Primary Care Physician - Moni Espino MD This Is Your Medications List tamsulosin (tamsulosin 0.4 mg Cap) Contact prescribing physician if questions or concerns empagliflozin (Jardiance 25 mg oral tablet) fenofibrate (fenofibrate 145 mg Tab) glimepiride (glimepiride 4 mg Tab) levetiracetam (Keppra) levothyroxine (Synthroid 200 mcg (0.2 mg) Tab) metformin (metformin 500 mg oral tablet) oxcarbazepine (oxcarbazepine 150 mg Tab) pioglitazone (pioglitazone 45 mg Tab) sitagliptin (Januvia 100 mg Tab) verapamil (verapamil 180 mg ER Tab) Procedures Performed Circumcision (11/22/2021), Colonoscopy. Discharge Vitals Heart Rate (Peripheral) 82 Blood Pressure 139/88 Height 163 cm Height 163.0 cm Weight 126 kg Weight 126.0 kg BMI 47.42 What to do next Scheduled Follow-Up Appointments Friday 11:15 AM EDT With: Neto Keith MD, Landen Chapa Where: [facility] Patient Educationon 02-15-20 Patient Education Urology Circumcision Information Boys are born with a fold of skin that covers the head of the penis (foreskin). This fold of skin is often removed shortly after with a surgery that is called circumcision. A circumcision may be done by health care providers who are involved in care. It may also be done by a specialist who cares for the urinary tract (urologist). Who should be circumcised? The decision to leave the foreskin on or to have it removed is a personal one. It is often based on uatsdin, social, or cultural beliefs. Circumcision is most often done in the first few days of life, but it may also be done later in life. In general: ? All healthy boys with a normal penis formation can be circumcised in the first few days after . ? Boys who are born early (prematurely) or who are ill should not be circumcised until they are older and stronger. ? Boys with certain deformities of the penis or deformities of the opening of the penis (urethra) should not be circumcised. How is circumcision done? ? The penis and the area around it are cleansed well. ? An injection is given to numb the area. A numbing cream may be applied to the area. ? A special clamp or ring is attached to the penis and used to remove the foreskin. ? The area is then cleansed well again. ? Medicine and gauze are applied to it. What are the benefits of circumcision? When the foreskin is removed: ? The head of the penis is easier to wash. This lowers the risk for odors, swelling, and infection. ? Some men are less likely to: ? Carry the virus that causes genital warts (human papillomavirus or HPV). ? Contract HIV (human immunodeficiency virus). ? Develop cancer of the penis. ? Get urinary infections. ? Develop inflammation of the penis. What are the risks of circumcision? Circumcision is a safe procedure. However, problems may occur, including: ? Infection. ? Bleeding. ? Removal of too much or too little foreskin. This affects the appearance of the penis. ? Irritation and narrowing of the urinary opening. This is usually temporary. ? Scarring of the penis. This may affect the way the penis functions. Summary ? Boys are born with a fold of skin that covers the head of the penis (foreskin). This fold of skin is often removed shortly after with a surgery that is called circumcision. ? When the foreskin is removed, the head of the penis is easier to wash and keep clean. ? Some men who are circumcised are less likely to carry viruses, get urinary infections, or develop cancer of the penis. ? Circumcision is a safe procedure. However, problems may occur, including infection, bleeding, scarring, and irritation and narrowing of the opening of the penis. This information is not intended to replace advice given to you by your health care provider. Make sure you discuss any questions you have with your health care provider. Document Released: 07/18/2001 Document Revised: 01/04/2019 Document Reviewed: 01/04/2019 [employer] Patient Education ? 2019 [employer]. [facility] Urology Office/Clinic Noteon 02-14-2022 Urology Office/Clinic Note Chief Complaint Pt is here for 2 month follow up to medication HPI Staff Cornelius is a 51 y.o. male here for a 2 month follow up. Previous Dx: BPH w/ urinary obstruction, nocturia, dysuria. S/P circumcision done on 11/22/21. Pt states he is having chaffing and burning when moving the skin around penis. Dysuria: denies Incomplete bladder emptying: denies Hematuria: denies Frequency: mild Urgency: denies Nocturia: 2x a night Stream: steady stream Leaking: denies Post void dripping: denies Wearing pads/ Depends: denies Urge incontinence: denies Stress incontinence: denies Incontinence without Sensory Awareness: denies Abdominal pain: denies Flank pain: denies Sexual complaints: _ History of Present Illness staff HPI reviewed and agree. Review of Systems PHQ Score Initial Depression Screen Score: 0 no fever, chills, malaise, myalgia. no rash/lesions. no chest pain, palpitations, or SOB. no abdominal pain, nausea, vomiting. no unilateral calf swelling, redness, pain Physical Exam Vitals & Measurements HR: 82(Peripheral) BP: 139/88 HT: 163 cm HT: 163.0 cm WT: 126 kg WT: 126.0 kg BMI: 47.42 General: nontoxic, NAD Mouth: moist mucosa Lungs: normal respiratory effort Cardio: regular rate, good distal perfusion Abdomen: nondistended, no suprapubic distention or tenderness, no CVA tenderness Neurologic: Grossly normal Skin: No rashes or suspicious lesions : shaft and glans show mild erythema, with diffuse white lesions and a few that appear slightly ulcerated Assessment/Plan 1. BPH with urinary obstruction (N40.1: Benign prostatic hyperplasia with lower urinary tract symptoms) was started on Flomax 0.4mg qd last visit. Pt's urgency and nocturia have improved but he does continue to have some bothersome sx. he is on a diuretic and is aware that some of the frequency/urgency is unavoidable. since he's not having any side effects we will go ahead and try doubling the Flomax and see if we can get more sx relief from the higher dose. another option in the future would be to consider anticholinergics. 2. Phimosis (N47.1: Phimosis) Pt is PO Circumcision 11/22/2021 by FRANCIE. pt c/o pain diffusely along the shaft of the penis which is worse with movement, voiding, cleaning the area. has very painful erections - so much so that he will not have any sexual activity. pt reports these sx have been present for about 3 years. he tried 'a few pills and creams' w Dr Espino prior to referral here. DLS prescribed a round of doxycycline back in november prior to circumcision. pt is now 3 mos post-op and sx have not improved at all, actually may be worse. area does not look like bacterial infection. possibly chronic fungal. considering BXO on differential, even though it's rare, the appearance and his history are suspicious. discussed case with DLS who recommends we try a round of oral + topical antifungals. will reassess within a month. Follow-up With When Contact Information JULIEN BRONSON, BREANA JEFF In 1 month 03/17/2022 EDT [address] [facility]. [place] [id number] Additional Instructions: Patient Education Circumcision Information I, Ann Rudd, personally scribed for Gina Victoria PA-C on 02/14/2022 16:19:49. . Documentation recorded by the giannaibbernard Rudd accurately reflects the services(s) I performed and decisions made by me. Authenticated by Gina Victoria PA-C on 02/14/2022 16:40:43. Problem List/Past Medical History Ongoing BMI 45.0-49.9, adult BPH with urinary obstruction Dysuria Nocturia Historical No qualifying data Procedure/Surgical History Circumcision (11/22/2021), Colonoscopy. Medications fenofibrate 145 mg Tab, 145 mg= 1 tab(s), Oral, Daily glimepiride 4 mg Tab, 4 mg= 1 tab(s), Oral, BID Januvia 100 mg Tab, 100 mg= 1 tab(s), Oral, Bedtime Jardiance 25 mg oral tablet, 25 mg= 1 tab(s), Oral, qAM Keppra, 750 mg, Oral, BID metformin 500 mg oral tablet, 500 mg= 1 tab(s), Oral, BID oxcarbazepine 150 mg Tab, 150 mg= 1 tab(s), Oral, BID pioglitazone 45 mg Tab, 45 mg= 1 tab(s), Oral, Daily Synthroid 200 mcg (0.2 mg) Tab, 200 mcg= 1 tab(s), Oral, Daily tamsulosin 0.4 mg Cap, 0.4 mg= 1 cap(s), Oral, Daily, 11 refills verapamil 180 mg ER Tab, 180 mg= 1 tab(s), Oral, Bedtime Allergies penicillin (Rash) Social History Alcohol - Denies Alcohol Use, 11/16/2021 Substance Abuse - Denies Substance Abuse, 11/16/2021 Tobacco Current vaping or e-cigarette use Smokeless Tobacco Use:. Vaping, 12/13/2021 Family History Congenital heart disease: Father. Diabetes mellitus type 1: Father. Hypertension: Father. Immunizations Vaccine Date Status influenza virus vaccine, inactivated 05/23/2021 Recorded SARS-CoV-2 mRNA (tozinameran 5y-11y) vac 11/06/2020 Recorded SARS-CoV-2 mRNA (tozinameran 5y-11y) vac 10/16/2020 Recorded Lab Results Ambulatory Point of Care Results Bilirubin Urine Dipstic (more content not included)... [facility] Comment on above: Result Comment: Elec tronically Signed By: GINA VICTORIA PA-C\.br\Date and Time Signed: 02/14/22 16:40 EDT\.br\Electronically Co-Signed By: Ann Rudd MA\.br\Date and Time Co-Signed: 02/14/22 16:20 EDT Ambulatory Visit Summaryon 0 12-13-2021 Ambulatory Visit Summary CORNELIUS OLGUIN Sammi :1970 Visit Date:12/13/2021 Ambulatory Visit Instructions Your Diagnosis Phimosis BPH with urinary obstruction BMI 45.0-49.9, adult Other obstructive and reflux uropathy Tests Performed Urnls Dip Stick Auto w/o Microscopy POC 18902 Your Care Team Attending Physician - GINA VICTORIA PA-C Primary Care Physician - Moni Espino MD This Is Your Medications List tamsulosin (tamsulosin 0.4 mg Cap) Contact prescribing physician if questions or concerns empagliflozin (Jardiance 25 mg oral tablet) fenofibrate (fenofibrate 145 mg Tab) glimepiride (glimepiride 4 mg Tab) levetiracetam (Keppra) levothyroxine (Synthroid 200 mcg (0.2 mg) Tab) metformin (metformin 500 mg oral tablet) oxcarbazepine (oxcarbazepine 150 mg Tab) pioglitazone (pioglitazone 45 mg Tab) sitagliptin (Januvia 100 mg Tab) verapamil (verapamil 180 mg ER Tab) [Image Removed: STOP]Stop taking these medications cephalexin (cephalexin 500 mg Cap) doxycycline (doxycycline hyclate 100 mg Cap) Procedures Performed Circumcision (11/22/2021), Colonoscopy. Discharge Vitals Heart Rate (Peripheral) 78 Blood Pressure 149/91 Height 163.0 cm Height 163 cm Weight 126.0 kg Weight 126 kg BMI 47.42 What to do next Scheduled Follow-Up Appointments 2021 3:15 PM EDT With: GINA VICTORIA PA-C Where: [facility] Ambulatory Visit Summary CORNELIUS OLGUIN :1970 Visit Date:12/13/2021 Ambulatory Visit Instructions Your Diagnosis Phimosis BPH with urinary obstruction BMI 45.0-49.9, adult Other obstructive and reflux uropathy Tests Performed Urnls Dip Stick Auto w/o Microscopy POC 71717 Your Care Team Attending Physician - GINA VICTORIA PA-C Primary Care Physician - Moni Espino MD This Is Your Medications List doxycycline (doxycycline hyclate 100 mg Cap) Contact prescribing physician if questions or concerns cephalexin (cephalexin 500 mg Cap) empagliflozin (Jardiance 25 mg oral tablet) fenofibrate (fenofibrate 145 mg Tab) glimepiride (glimepiride 4 mg Tab) levetiracetam (Keppra) levothyroxine (Synthroid 200 mcg (0.2 mg) Tab) metformin (metformin 500 mg oral tablet) oxcarbazepine (oxcarbazepine 150 mg Tab) pioglitazone (pioglitazone 45 mg Tab) sitagliptin (Januvia 100 mg Tab) verapamil (verapamil 180 mg ER Tab) Procedures Performed Circumcision (11/22/2021), Colonoscopy. Discharge Vitals Heart Rate (Peripheral) 78 Blood Pressure 149/91 Height 163.0 cm Height 163 cm Weight 126.0 kg Weight 126 kg BMI 47.42 What to do next You Need to Schedule the Following Appointments Follow Up with GINA VICTORIA PA-C, LEATHAL When: In 3 months 03/15/2022 EDT Where: [address] [place] [address] Medications What How Much When Instructions Unchanged doxycycline (doxycycline hyclate 100 mg Cap) 1 Capsules By Mouth 2 times a day Unchanged cephalexin (cephalexin 500 mg Cap) 1 Capsules By Mouth Every 12 hours Contact prescribing physician if questions or concerns Unchanged empagliflozin (Jardiance 25 mg oral tablet) 1 Tablets By Mouth Once a day (in the morning) Contact prescribing physician if questions or concerns Unchanged fenofibrate (fenofibrate 145 mg Tab) 1 Tablets By Mouth Every day Contact prescribing physician if questions or concerns Unchanged glimepiride (glimepiride 4 mg Tab) 1 Tablets By Mouth 2 times a day Contact prescribing physician if questions or concerns Unchanged levetiracetam (Keppra) 750 Milligram By Mouth 2 times a day Contact prescribing physician if questions or concerns Unchanged levothyroxine (Synthroid 200 mcg (0.2 mg) Tab) 1 Tablets By Mouth Every day Contact prescribing physician if questions or concerns Unchanged metformin (metformin 500 mg oral tablet) 1 Tablets By Mouth 2 times a day Contact prescribing physician if questions or concerns Unchanged oxcarbazepine (oxcarbazepine 150 mg Tab) 1 Tablets By Mouth 2 times a day Contact prescribing physician if questions or concerns Unchanged pioglitazone (pioglitazone 45 mg Tab) 1 Tablets By Mouth Every day Contact prescribing physician if questions or concerns Unchanged sitagliptin (Januvia 100 mg Tab) 1 Tablets By Mouth At bedtime Contact prescribing physician if questions or concerns Unchanged verapamil (verapamil 180 mg ER Tab) 1 Tablets By Mouth At bedtime Contact prescribing physician if questions or concerns Test Results Urnls Dip Stick Auto w/o Microscopy POC [id number] (12/13/2021) Bilirubin Urine Dipstick - Negative Blood Urine Dipstick - Trace-intact Glucose Urine Dipstick - 2+ 500 mg/dl Ketones Urine Dipstick - Negative Leukocytes Urine Dipstick - Negative Nitrite Urine Dipstick - Negative Protein Urine Dipstick - Negative Specific [place] Urine Dipstick - 1.020 Urine Appearance Urine Dipstick - Clear Urine Color Urine Dipstick - Yellow Urobilinogen Urine Dipstick - Normal 0.2-1 EU/dl pH Urine Dipstick - 7 Allergies penicillin (Rash) Problems Ongoing - Any problem that you are currently receiving treatment for. BMI 45.0-49.9, adult BPH with urinary obstruction Nocturia Education Materials Testicular Self-Exam A self-exam of your testicles (testicular self-exam) is looking at and feeling your testicles for unusual lumps or swelling. Swelling, lumps, or pain can be caused by: ? Injuries. ? Puffiness, redness, and soreness (inflammation). ? Infection. ? Extra fluids around your testicle (hydrocele). ? Twisted testicles (testicular torsion). ? Cancer of the testicle (testicular cancer). Why is it important to do a self-exam of testicles? You may need to do self-exams if you are at risk for cancer of the testicles. You may be at risk if you have: ? A testicle that has not descended (cryptorchidism). ? A history of cancer of the testicle. ? A family history of cancer of the testicle. How to do a self-exam of testicles It is easiest to do a self-exam after a warm bath or shower. Testicles are harder to examine when you are cold. A normal testicle is egg-shaped and feels firm. It is smooth, and it is not tender. At the back of your testicles, there is a firm cord that feels like spaghetti (spermatic cord). Look and feel for changes ? Stand and hold your penis away from your body. ? L (more content not included)... [facility] Patient Educationon 12-14-19 Patient Education Nutrition Calorie Counting for Weight Loss Calories are units of energy. Your body needs a certain amount of calories from food to keep you going throughout the day. When you eat more calories than your body needs, your body stores the extra calories as fat. When you eat fewer calories than your body needs, your body vazquez fat to get the energy it needs. Calorie counting means keeping track of how many calories you eat and drink each day. Calorie counting can be helpful if you need to lose weight. If you make sure to eat fewer calories than your body needs, you should lose weight. Ask your health care provider what a healthy weight is for you. For calorie counting to work, you will need to eat the right number of calories in a day in order to lose a healthy amount of weight per week. A dietitian can help you determine how many calories you need in a day and will give you suggestions on how to reach your calorie goal. ? A healthy amount of weight to lose per week is usually 1?2 lb (0.5?0.9 kg). This usually means that your daily calorie intake should be reduced by 500?750 calories. ? Eating 1,200 ? 1,500 calories per day can help most women lose weight. ? Eating 1,500 ? 1,800 calories per day can help most men lose weight. What is my plan? My goal is to have calories per day. If I have this many calories per day, I should lose around pounds per week. What do I need to know about calorie counting? In order to meet your daily calorie goal, you will need to: ? Find out how many calories are in each food you would like to eat. Try to do this before you eat. ? Decide how much of the food you plan to eat. ? Write down what you ate and how many calories it had. Doing this is called keeping a food log. To successfully lose weight, it is important to balance calorie counting with a healthy lifestyle that includes regular activity. Aim for 150 minutes of moderate exercise (such as walking) or 75 minutes of vigorous exercise (such as running) each week. Where do I find calorie information? The number of calories in a food can be found on a Nutrition Facts label. If a food does not have a Nutrition Facts label, try to look up the calories online or ask your dietitian for help. Remember that calories are listed per serving. If you choose to have more than one serving of a food, you will have to multiply the calories per serving by the amount of servings you plan to eat. For example, the label on a package of bread might say that a serving size is 1 slice and that there are 90 calories in a serving. If you eat 1 slice, you will have eaten 90 calories. If you eat 2 slices, you will have eaten 180 calories. How do I keep a food log? Immediately after each meal, record the following information in your food log: ? What you ate. Don't forget to include toppings, sauces, and other extras on the food. ? How much you ate. This can be measured in cups, ounces, or number of items. ? How many calories each food and drink had. ? The total number of calories in the meal. Keep your food log near you, such as in a small notebook in your pocket, or use a mobile nadia or website. Some programs will calculate calories for you and show you how many calories you have left for the day to meet your goal. What are some calorie counting tips? ? Use your calories on foods and drinks that will fill you up and not leave you hungry: ? Some examples of foods that fill you up are nuts and nut butters, vegetables, lean proteins, and high-fiber foods like whole grains. High-fiber foods are foods with more than 5 g fiber per serving. ? Drinks such as sodas, specialty coffee drinks, alcohol, and juices have a lot of calories, yet do not fill you up. ? Eat nutritious foods and avoid empty calories. Empty calories are calories you get from foods or beverages that do not have many vitamins or protein, such as candy, sweets, and soda. It is better to have a nutritious high-calorie food (such as an avocado) than a food with few nutrients (such as a bag of chips). ? Know how many calories are in the foods you eat most often. This will help you calculate calorie counts faster. ? Pay attention to calories in drinks. Low-calorie drinks include water and unsweetened drinks. ? Pay attention to nutrition labels for low fat or fat free foods. These foods sometimes have the same amount of calories or more calories than the full fat versions. They also often have added sugar, starch, or salt, to make up for flavor that was removed with the fat. ? Find a way of tracking calories that works for you. Get creative. Try different apps or programs if writing down calories does not work for you. What are some portion control tips? ? Know how many calories are in a serving. This will help you know how many servings of a certain food you can have. ? Use a measuring cup to measure serving sizes. You could (more content not included)... [facility] Urology Office/Clinic Noteon 12-13-2021 Urology Office/Clinic Note Chief Complaint pt is here for f/u to circumcsion done 11/22/21 HPI Staff pt is here for f/u to circumcision done on 11/22/21. pt says skin grew back over where his stitches are, pt says the incision doesn't bother him, but the skin is burning. pt is getting up 3-4x at night & having some urgency. PVR- Dysuria: _denies Incomplete bladder emptying: _not sure Hematuria: _denies visibly,UA shows trace-intact Frequency: _denies Urgency: _yes, has to go right away Nocturia: _3-4x Stream: _steady Leaking: _every now & then Post void dripping: _a little Wearing pads/ Depends: _denies Urge incontinence: _denies Stress incontinence: _denies Incontinence without Sensory Awareness: _denies Abdominal pain: _denies Flank pain: _denies Sexual complaints: _ History of Present Illness Pt is here for follow up to Circumcision Pt has no associated symptoms, no fever, no chills, no flank pain. I have reviewed the previous health record information and history for this patient from Dr. Duque Review of Systems no fever, chills, malaise, myalgia. no rash/lesions. no chest pain, palpitations, or SOB. no abdominal pain, nausea, vomiting. no unilateral calf swelling, redness, pain Physical Exam Vitals & Measurements HR: 78(Peripheral) BP: 149/91 HT: 163.0 cm HT: 163 cm WT: 126.0 kg WT: 126 kg BMI: 47.42 General: nontoxic, NAD Mouth: moist mucosa Lungs: normal respiratory effort Cardio: regular rate, good distal perfusion Abdomen: nondistended, no suprapubic distention or tenderness, no CVA tenderness Neurologic: Grossly normal Skin: No rashes or suspicious lesions : well healed, no redness/swelling/tende rness Assessment/Plan Will return for follow up in 3 months 1. Phimosis (N47.1: Phimosis) Pt is PO Circumcision 11/22/2021 Incision healing well. No redness. no difficulty initiating stream now. 2. BPH with urinary obstruction (N40.1: Benign prostatic hyperplasia with lower urinary tract symptoms) Pt is not currently on any prostate medications. Pt is having Nocturia 3-4, daytimes Urgency, post-void dribbling. these sx are bothersome. discussed risks/benefits of BPH medication therapy. side effects discussed. pt would like to try adding Tamsulosin 0.4mg qd. return in 2-3 mos to assess improvement. Follow-up With When Contact Information JULIEN BRONSON, BREANA JEFF In 3 months 03/15/2022 EDT [address] [place] [address] Additional Instructions: Patient Education Testicular Self-Exam, [id number] Calorie Counting for Weight Loss I, Brittani Husain, personally scribed for Gina Victoria PA-C on 12/13/2021 14:39:01. . Documentation recorded by the scribbernard Husain accurately reflects the services(s) I performed and decisions made by me. Authenticated by Gina Victoria PA-C on 12/13/2021 14:43:04. Problem List/Past Medical History Ongoing BMI 45.0-49.9, adult BPH with urinary obstruction Nocturia Historical No qualifying data Procedure/Surgical History Circumcision (11/22/2021), Colonoscopy. Medications cephalexin 500 mg Cap, 500 mg= 1 cap(s), Oral, q12hr, Not taking doxycycline hyclate 100 mg Cap, 100 mg= 1 cap(s), Oral, BID, Not taking fenofibrate 145 mg Tab, 145 mg= 1 tab(s), Oral, Daily glimepiride 4 mg Tab, 4 mg= 1 tab(s), Oral, BID Januvia 100 mg Tab, 100 mg= 1 tab(s), Oral, Bedtime Jardiance 25 mg oral tablet, 25 mg= 1 tab(s), Oral, qAM Keppra, 750 mg, Oral, BID metformin 500 mg oral tablet, 500 mg= 1 tab(s), Oral, BID oxcarbazepine 150 mg Tab, 150 mg= 1 tab(s), Oral, BID pioglitazone 45 mg Tab, 45 mg= 1 tab(s), Oral, Daily Synthroid 200 mcg (0.2 mg) Tab, 200 mcg= 1 tab(s), Oral, Daily verapamil 180 mg ER Tab, 180 mg= 1 tab(s), Oral, Bedtime Allergies penicillin (Rash) Social History Alcohol - Denies Alcohol Use, 11/16/2021 Substance Abuse - Denies Substance Abuse, 11/16/2021 Tobacco Current vaping or e-cigarette use Smokeless Tobacco Use:. Vaping, 12/13/2021 Family History Congenital heart disease: Father. Diabetes mellitus type 1: Father. Hypertension: Father. Immunizations Vaccine Date Status influenza virus vaccine, inactivated 05/23/2021 Recorded SARS-CoV-2 mRNA (tozinameran 5y-11y) vac 11/06/2020 Recorded SARS-CoV-2 mRNA (tozinameran 5y-11y) vac 10/16/2020 Recorded Lab Results Ambulatory Point of Care Results Bilirubin Urine Dipstick: Negative (12/13/21 14:12:00) Blood Urine Dipstick: Trace-intact (12/13/21 14:12:00) Glucose Urine Dipstick: 2+ 500 mg/dl (12/13/21 14:12:00) Ketones Urine Dipstick: Negative (12/13/21 14:12:00) Leukocytes Urine Dipstick: Negative (12/13/21 14:12:00) Nitrite Urine Dipstick: Negative (12/13/21 14:12:00) Protein Urine Dipstick: Negative (12/13/21 14:12:00) Specific [place] Urine Dipstick: 1.020 (12/13/21 14:12:00) Urine Appearance Urine Dipstick: Clear (12/13/21 14:12:00) Urine Color Urine Dipstick: Ye (more content not included)... [facility] Comment on above: Result Comment: Elec tronically Signed By: GINA VICTORIA PA-C\.br\Date and Time Signed: 12/13/21 14:43 EDT\.br\Electronically Co-Signed By: Brittani Husain\.br\Date and Time Co-Signed: 12/13/21 14:39 EDT IntraOperative Documentson 0 11-27-2021 IntraOperative Documents [id number]#1. 00CD:127 [facility] Postoperative Documentson Postoperative Documents [id number]#1. 00CD:127 [facility] Coding Summary.on 11-26-2021 Coding Summary. CD:[id number] Gh 0bWw+PGhlYWQ+NT6SIKReM 11waUAotR2KU5qOIN5KRVB YSDMAAS4YQP0zxIK0BVmhE 2VybiAv QiduvNGnTF48QNb8DLI4yF xqSBqpcE4bjQVdM5u5YlQm NY84rF44RNatEZWxZuD1Jz ZpbjsgbWFy S0ubVgPevHEdWgu+PHRhYm xlIHdpZHRoPScxMDAlJyBz rCtdDN6iKk5aUYWdURDeiB xhcHNlOiBj z2eaIPPoCMehQI3tnEkwS7 NyaXJ8ONIuf7u2Cb41vCA+ ZQBsOJV3jCsbVUofp616Aw Maz1igZDM1 dANeTMehYLZ3U06oj0F9CX PcDLFkIPT9bAX9jW8ysTzp jbemH9NwqFCoWyM8YCH0vB FrxH1koItu uzkccT1qKdc+D16KRX9HDZ HAZN8OLba6M8XrOmayzIN+ UP26DUPbUY94sGLvuHMzy6 tksNz7IyVx IKMwLJN9oUswHSzkl4SuTE SzT55fxANef7W6UANmyYuy mFHmDvZsqPY3qH6iDUjwsa xnv2rnrcbp Batik7qkaq60tT64P19rFI taZYTbDYR9UPVbVTUdqPwb hz1zdV8vPe4+GOlsb2kch6 sojQc3TeOu CHGqwaNmmPumBWR6i1DoCv 51A3LntJguo4ZwGtd5tt57 xDMgt5T2rQI3DTtsBQUhjU 7iHIboZdJ7 VYUqWpUxqB54xLJcWLskOr 8jhOafkYsvEM5xRVGcmdnm HPDynZ0lEYHnqURwoFaiZM 4wNTBpbjtm z443XxKvUQX2XPWuoROzS0 TykB3cEzNjRGJhNZYiZ5Vm qQIlBUtuC522UBpwUlJ2IF YuilHmT8Xf XCFogVizSjI0w0O1Gn9Rx9 MpomucXAB0WVitQSS1PmZ2 PbJgQkO8E9SpBtd9QEHyhL qdCM8nH0Gf XGUaebmykkjscYC3RCUjJV RqxO08sWKyHIyqWv2wq4O9 i842SNPbWDWjiW55Om1yqZ ogMTBwdCBU gK0emirly2rzxipuDhSmML MyMTq8MTo6GXLixAqtLpSo ANC2AvX7YZU3wCKmkY1erS evnzjpfX8o Oyc+V66dcW8pQVU9RRT1yd zlOVPvctRwGB48NL19C8Hn PjwvdGFibGU+PGRpdiBzdH qxSB6wQeTf b2ddn0OdYTryA2WbTFJdSD jeFnh6EEXtKZP1yAX4zK2r QCOlPNfqr8N8uMR0V6Ozob Vqvk9zc3ak VAVqSJdpC21auJObj4A2RU IrrUT0PZLysLidTcDxfP25 Oyc+AWLhrXkjf4RvLwcbr1 ami2amsRn1 YaGyXPGzakHhxQojFXL0j0 XbMs29U00eWZqqCOGsYCWe VQXaFBWiqHtfrq5rnC6uIt 8+PGNvbCB3 zLE1dN3nXKGjStF0BBtjY0 01UjFupAUaVnrhx7peh9hg hXx0JlTqGJMzjkPmyYbyKC U4y4QnOg79 K06pBZxeCBJaTXClUWTpFI AunNleot2gqJ9bTl7+PC9j a4tjfw27mF11tBD+PHRkIH H4aStzQXem FRJewY5pXFxoFpG3MAHzMo FbuE25uEFjVKnmEc6csSun eVguIS6qMNGhmwtsm000Ek Gvn4qzGHAg mTKkFIyxEXB1S21xe7D8CL EoDCXeTWZ2pTY0qW7nwSre bjogbGVmdDsgdmVydGljYW vjCDklB253 IHRvcDsnPlBhdGllbnQgTm RyGEa8F9IfTye0VTUcmCqi MX8ziNKqDUlvAt9hjMfssD ptPH0lQZWd brzuy655WxArp0vaZLWlbO OjTKngJEC5M02jv8N1EGFo AJSjHDT7mWA7lB7dhHexlz ogbGVmdDsg neMggErmUMclSDavT459CA RvcDsnPkJpcnRoIERhdGU6 VL51RX70tIDqf4A9fRC1E3 BhZGRpbmct qbbpnNW5VCAaFHHozL73Dw 7uiTujFk3vEXJeBOL4WMTz wSLpB9NpwN8dCzMsLYSpVA VjS7GtsNDn AVflJ964UKxmFiA6UMWnvm UhM2NiYFQliPknXmD8q9Z0 Tr3RO8E9RZ72NB70jMBmy7 Z2vKP2O7Jd YEZrggqksjtezJR7NPOwKW IreP40Hk5jjWewTo3kUVAs FTV0NVMjuAVeM2NbfI3lPs AjMDAwMDAw U3SvaFRnVFwiO192EFeqIk J3IVZuznXyY5FeVVVbzVqc BzV2x2V1Fs4KXQk7AS81TR 33uJWca6G3 zTN3W7MhCTMsqgszldqqgN I0RCBoVXAqgJ52Fp9scOon Pb2uKXFyCJN0FTDdoNNgA4 OvlC4vJaIw LYCvKEVpU1WlpVRgSQlnE4 82FHmpIuK9XONozpXlC2Sh FTOmfMqbGdR3n2X3Ng1JJU OrBL42WQQ1 jQA9MC47IN93D4ZaLphsmG FibGU+PHRhYmxlIHdpZHRo FKmyJOVuJgKzzYolKL4nNn 9yZGVyLWNv aJvclPNsGnOna1eoIUGfWF xyKA2opVeeJ2YccJS7RCLu k1x5Df78O84hN8ZjwWH+PG GbePE6rBK1 eW7sJoZqEdD2QUxeQ150Iv OhuAFsQbtde3ysv6bhoPe0 JyU0YBQixzOqrPmzMLT4h8 ZfVn87Z42w IHdpZHRoPSIxNSUiIHZhbG snxw8efL2rLh8+PGNvbCB3 eXI0qI3kQsAmGdC9FPjmT7 49InRvcCIv Drilp0une0sbdJg7KdRiVS GylgTthRllCWW7p3UoJd22 F8NgnXyud0RtTer2hq55oQ Krh2E2cMX3 S0KrJEQwtgoiqYQpwOqmPU 5kWSParjbeXEIoxE5kITOb X7f4YiWyVrK1NNspD5Prfy W7FMEcfPWy ZMcvOUI1O38uh8I2AAUjWI VwMTY2iVZ2mS0nqCqudgjq bGVmdDsgdmVydGljYWwtYW nwE779CESe tNylPSAkcP2nHQYbbJXmyK twEU2xZYAycsmrYwMRH2OX XQfjQSEZLSBOSV04HR71nV Got6A8eMY5 K3CdSRJusmvhrbsqmMT6YR DtSITdoD54uASfNFqlXz0d e0U0p312RUUbPXAurN24Gd 9udDogMTBw iAWXnP1mmoowl9nemvmsSi CiUXExYRo6IQq1XCGwfBvs SdNaJVH1CtX8SJW6rGSacS 1hbGlnbjog tD3fWck+KZEgVmGqJDn0LJ wvdGQ+WSCaPUM1lIekYHvn QLXnhQ7jFACsB8r2KbFiLm Y8XFoeK4Ch RTYehomaCq99aA7qCbAqHr F1PQaqG1HtzdB8KQAgwLAo KLdiFRT7I20en9B3YOXsTT MrQPX7iVI3 mG6zkChpsiminOAbjJoqkw MfeHogJWeoYGnjO866LHAd gWbqKmIsQGnaXGAuEG60RR 96rGTiu7W7 cLE1Z1XhZWYzkmjlouabiL M7NIYkDCIgoJ03dVEsKBfm Jb9ia8D2t158ZBRtOPRbyF 75Mb6pzBhg GBIkkAUEqR8xpykgm4segc rfKgHqQLKfDOf8ONi1KVSw hJxqVkWpNPM9FuO4BIA8lS VdfR6qcBer euaonY0wXse+TWFsZTwvdG Q+RKSeOAZ0kVmqTRafVWWq nX9yAGKrB4y3QtZgOdW2TK rzE8WbSXNe kiqwAc52zP1rPqLiMeP5FC ypE3YlzaQ1EKXdoZDvFSdf AMJ7A67zz0R2VPQwPIVhOX V3gVW9pK3l bGlnbjogbGVmdDsgdmVydG zaKBkwDXyiD192XXOnxObr XdMsQrZcPPNwnnwlF6GwFF LAPCdyN0Hw K6ZrpJpygQD+CW19wm36V0 GqTggjZmg3NAYcCFS9iVZ2 fY4yATZaGBiey6P2gMD0O5 YnutPjdk1f k6oePOVsEUkoV08xgICbt5 A1CTKmvIT5ADCcwHmuUoXc yQ99Dgb+XQKzoLvoe7JqBl wmw8ltx3su nAs9BeIdKNEtpiWxnPqmDZ T0k9LmJw57E27iZUvqKGLp AOGuCYTkSZBloSfpeq3tsX 9wIi8+PGNv uMJ8cSI7kO7oInDtQfL4QN yuG249WqQjeMGbNsoio2nx y3kqeKm9VbTmBYItbxQumM piLTB0q9Fw Cb49E6UgsPjtp6JuWca6wj 88dAYhb7S9yJK9F4KvQDPi eniezJBeuZvlJA4lXBBgkh jhLODlzH2d FXHtS2v9KeMzEpD7TPdpO9 WdvxS1XXRhhJAdXXYwmOHK cN3itdqij3tmiwbkQjOlCY LcOQm2QAa7 BWJwdKtrGdHbNPP6WcR6UB C7tHEpeX1meHnogqttnE6o Oyc+FEy4q7bspHJlAD4vxF E8OD42RE78 iFLfm3Y7uLA0Q1FtJNWqip ttgvhcoNF6CBXiFGRpiQ28 Cc0ltZshYm5jAWJwFPO9HR NfyHSjF8Qb jK6dYqRxUFTsEZXzK7WyoY PhAPenY526TSlxIgP3UZGo fpLzZ6IpIJClwVepRrU2l0 Y5Wc9NTI50 MG80UJ05tGTgm4W5iJL8R1 NbRWHjzpefwhzmiBD4DEEs LWSsdF53Fw5exRqdVq1bXN EgOIS1VIQh dYNvF9MysL7yZaTnQEDvSH SoP2GwuPBsBEyjE541WObb UzD1MWVyeqVrE3TuQDIpbC ruLaA6p6J1 La2RUy08JO66SC68fKUzw7 X2wYP0L7YmCWCsppsreuae dSQ6CJVmXHOvyF82Vh7bwS umEa1oDSAx ZNI5GQMthBUfQ6MmbO0xFq CjRTOwQQDmH2PuhCZrQIug T501VMgzGfU7ECWxbhJbO6 FsLWFsaWdu KuT3w2A5Fa3NVJnizjc0V8 RkPjwvdHI+LW13YOJgFX12 oSTpkVAja4plzJp4YjPmQZ JyRKG1gDgj PSdi (more content not included)... [facility] Consent for Anesthesiaon Consent for Anesthesia [id number]#1. 00CD:127 [facility] Discharge Instructionson Discharge Instructions [id number]#1. 00CD:127 [facility] IntraOperative Documentson 0 11-23-2021 IntraOperative Documents [id number]#1. 00CD:127 [facility] Preoperative Documentson Preoperative Documents [id number]#1. 00CD:127 [facility] Preoperative Documents [id number]#1. 00CD:127 [facility] CHEMISTRYOrdered By: Lab ROP User on 11-22-2021 Glucose [Mass/Vol] 170 mg/dL High 55 - 99 mg/dL [facility] POC Subsection Comment on above: Result Comment: Kiera lamonte Meter POC Device SN [id number] Invalid Interpretation Code [facility] POC Subsection POC User ID [id number] Invalid Interpretation Code [facility] POC Subsection POC Username JEANETTE MALIK Invalid Interpretation Code [facility] POC Subsection Capillary Glucose POCon 11-03 Glucose [Mass/Vol] 170 mg/dL High 55-99 [facility] Comment on above: Result Comment: Kiera lamonte Meter Performed By: #### [id number] ####[facility] [id number] [place] [address] Consent for Procedure/Surger yon 11-22-2021 Consent for Procedure/Surgery [id number]#1. 00CD:127 [facility] Consent for Treatmenton 11-03 Consent for Treatment [id number]#1.0 0CD:127 [facility] H&P Updateon 11-22-2021 H&P Update [id number]#1. 00CD:127 [facility] Inpatient Patient Summaryon 11-22-2021 Inpatient Patient Summary [place] [id number] [facility] Clinical Discharge Instructions PERSON INFORMATION Name: [facility]#:[id number] [facility]YSICIANS Admitting Physician: Landen Duque Jr., MD Attending Physician: Landen Duque Jr., MD PCP: Moni Espino MD Discharge Diagnosis: Comment: PATIENT EDUCATION INFORMATION Instructions: Post Op Patient Instructions - FT (Custom) Medication Leaflets: Follow up: With: Address: When: GINA VICTORIA [address] [place] [address] [id number] [facility] (1) Within 2 to 4 weeks MEDICATION LIST New Medications [id number], [address], [place] [id number], [phone] acetaminophen-oxycodon e (Percocet 5 mg-325 mg oral tablet) 1 Tablets By Mouth every 6 hours as needed Pain 8-10. Refills: 0. doxycycline (doxycycline hyclate 100 mg Cap) 1 Capsules By Mouth 2 times a day. Refills: 0. Medications to Continue with No Changes Other Medications cephalexin (cephalexin 500 mg Cap) 1 Capsules By Mouth every 12 hours. empagliflozin (Jardiance 25 mg oral tablet) 1 Tablets By Mouth once a day (in the morning). fenofibrate (fenofibrate 145 mg Tab) 1 Tablets By Mouth every day. glimepiride (glimepiride 4 mg Tab) 1 Tablets By Mouth 2 times a day. levetiracetam (Keppra) 750 Milligram By Mouth 2 times a day., seizure levothyroxine (Synthroid 200 mcg (0.2 mg) Tab) 1 Tablets By Mouth every day. metformin (metformin 500 mg oral tablet) 1 Tablets By Mouth 2 times a day. oxcarbazepine (oxcarbazepine 150 mg Tab) 1 Tablets By Mouth 2 times a day. pioglitazone (pioglitazone 45 mg Tab) 1 Tablets By Mouth every day. sitagliptin (Januvia 100 mg Tab) 1 Tablets By Mouth at bedtime. verapamil (verapamil 180 mg ER Tab) 1 Tablets By Mouth at bedtime. Comment: Normal [facility] Main OR Intraoperative Recor don 11-22-2021 Main OR Intraoperative Record IntraOp Document Type FT Summary Primary Physician: Landen Duque Jr., MD Finalized Date/Time: 11/22/21 14:09:18 Pt. Name: CORNELIUS OLGUIN Sammi /Sex: 1970 Male Med Rec #: [id number] Physician: Landen Duque Jr., MD Financial #: [id number] Pt. Type: A Room/Bed: [place] [address] Admit/Disch: 11/22/21 05:40:49 - 11/22/21 10:25:00 Institution: Case Times FT Entry 1 Patient Times In Room 11/22/21 07:47:00 Out Room 11/22/21 08:41:00 Procedure Times Start 11/22/21 08:10:00 Stop 11/22/21 08:36:00 Anesthesia Times Start 11/22/21 07:47:00 Stop 11/22/21 08:41:00 Last Modified By: Hung IRAHETA, Franny Davila 11/22/21 08:48:12 General Comments: 11/22/21 Chart opened to review and send charges [facility] Case Attendance FT Entry 1 Entry 2 Entry 3 Case Attendee Jeffery MARTINEZ, Antonio Duque Jr., MD, Yassine Wen JR, DO Role Performed MICHELLE Surgeon - Primary Anesthesiologist of Record Time In 11/22/21 07:47:00 11/22/21 07:47:00 11/22/21 07:47:00 Time Out 11/22/21 08:41:00 11/22/21 08:41:00 11/22/21 08:41:00 Procedure CIRCUMCISION ADULT(.) CIRCUMCISION ADULT(.) CIRCUMCISION ADULT(.) Comments Last Modified By: Shanna ROSA, Cristiane Persaud RN, Franny Oquendo RN 11/22/21 14:06:07 11/22/21 08:48:15 11/22/21 08:48:15 Entry 4 Entry 5 Case Attendee Hung IRAHETA, Franny Brand CST, Mary Rivera Role Performed Cement Finisher Apprentice - Primary Scrub - Primary Time In 11/22/21 07:47:00 11/22/21 07:47:00 Time Out 11/22/21 08:41:00 11/22/21 08:41:00 Procedure CIRCUMCISION ADULT(.) CIRCUMCISION ADULT(.) Comments Last Modified By: Hung IRAHETA, Franny Oquendo RN 11/22/21 08:48:15 11/22/21 08:48:15 Perioperative Protocols FT Pre-Care Text: Implements protective measures prior to operative or invasive procedure, confirms identity before the operative or invasive procedure, verifies operative procedure, surgical site, and laterality Entry 1 Procedure(s) CIRCUMCISION ADULT(.) Patient Identity Birthday, ID Band Verified (select at Check, Patient least 2): Participation Consents / H and P Anesthesia Consent, Operative Site N/A Verified HandP, Surgery/Procedure Marking Verified Consent, Transfusion Consent Surgical Site Yes Laterality Verified n/a Verified Procedure Verified Yes Correct Patient Yes Position Verified Availability Equipment, Medication Prep Dry Yes Verified (If Applicable) PreOp Antibiotic Yes Time Out Antonio Gil CRNA, Given Participants Neto Keith MD, Hung Aleman RN, Cathie Marsh CST, Mary Rivera Time Out Complete 11/22/21 08:07:00 Outcomes Met? Yes Last Modified By: Franny Persaud RN 11/22/21 08:49:24 Post-Care Text: The patient is free from signs and symptoms of injury caused by extraneous objects Allergy Information FT Pre-Care Text: Verifies allergies Entry 1 Allergies Reviewed? Yes Allergies Reviewed Self/Patient With Outcomes Met? Yes Last Modified By: Franny Persaud RN 11/22/21 07:31:27 Post-Care Text: The patient received appropriate medication(s) safely administered during the perioperative period Surgical Procedures FT Entry 1 Procedure Description Procedure CIRCUMCISION ADULT Modifiers . Surgeon Description circumcision Primary Procedure Yes Primary Surgeon Landen Duque Jr., MD Start 11/22/21 08:10:00 Stop 11/22/21 08:36:00 Anesthesia Type General Surgical Service Urology Wound Class 2 - Clean-Contaminated Last Modified By: Franny Persaud RN 11/22/21 08:49:04 General Case Data FT Pre-Care Text: Classifies surgical wound, implements aseptic technique, initiates traffic control Entry 1 Case Information OR OR 5 FT Case Level Level 2 Wound Class 2 - Clean-Contaminated Specialty Urology ASA Class 3 Preop Diagnosis PHIMOSIS Postop Same As Preop Yes Postop Diagnosis PHIMOSIS Outcomes Met? Yes Last Modified By: Franny Persaud RN 11/22/21 08:49:07 Post-Care Text: The patient is free from signs and symptoms of infection Skin Assessment (Pre Procedure) FT Pre-Care Text: Implements protective measures to prevent skin/ tissue injury due to thermal or mechanical sources Evaluates for signs and symptoms of physical injury to skin and tissue Entry 1 Skin Integrity Intact, [place], Warm, and Skin Abnormality No Dry Outcomes Met? Yes Last Modified By: Franny Persaud RN 11/22/21 07:33:50 Post-Care Text: The patient is free from signs and symptoms of injury caused by extraneous objects Patient Positioning FT Pre-Care Text: Identifies physical alterations that require additional precautions for procedure-specific positioning, verifies presence of prosthetics or corrective devices, positions the patient, evaluates the patient for signs and symptoms of injury as a result of positioning Entry 1 Procedure CIRCUMCISION ADULT(.) Body Position Supine Feet Uncrossed? Yes Left Arm Position Extended on Padded Arm Boa (more content not included)... [facility] Main OR PACU I Recordon 11-03 Main OR PACU I Record PACU Phase I Document Type FT Summary Primary Physician: Landen Duque Jr., MD Finalized Date/Time: 11/22/21 09:20:12 Pt. Name: CORNELIUS OLGUIN/Sex: 1970 Male Med Rec #: [id number] Physician: Neto Keith MD, Landen Chapa Financial #: [id number] Pt. Type: A Room/Bed: [place] [address] Admit/Disch: 11/22/21 05:40:49 - Institution: Case Times PACU I FT Pre-Care Text: Identifies barriers to communication and implements measures to provide psychological support Develops individualized plan of care, and ensures continuity of care Maintains patient's dignity and privacy, and maintains patient confidentiality Identifies and reports philosophical, cultural, and spiritual beliefs and values Identifies individual values and wishes concerning care Implements aseptic technique, and administers prescribed antibiotic therapy and immunizing agents as ordered Evaluates postoperative tissue perfusion Implements thermoregulation measures, and monitors body temperature Evaluates postoperative respiratory status Evaluates postoperative cardiac status Evaluates postoperative neurological status Assesses pain control, collaborated in initiating patient-controlled analgesia and implements alternative methods of pain control Verifies allergies, administers prescribed medications and solutions, evaluates response to medications Entry 1 In PACU I 11/22/21 08:42:00 Discharge from PACU 11/22/21 09:12:00 I Outcomes Met? Yes Last Modified By: Yani Roth RN 11/22/21 09:20:06 Post-Care Text: The patient demonstrates knowledge of the expected response to the operative or invasive procedure The patient's care is consistent with the individualized perioperative plan of care The patient's right to privacy is maintained The patient's value system, lifestyle, ethnicity, and culture are considered, respected, and incorporated into the perioperative plan of care The patient participates in decisions affecting his or her perioperative plan of care The patient is free from signs and symptoms of infection The patient has wound/tissue perfusion consistent with or improved from baseline levels established preoperatively The patient is at or returning to normothermia at the conclusion of the immediate postoperative period The patient's respiratory function is consistent with or improved from baseline levels established preoperatively The patient's cardiovascular status is consistent with or improved from baseline levels established preoperatively The patient's cardiovascular status is consistent with or improved from baseline levels established preoperatively The patient demonstrates and/or reports adequate pain control throughout the perioperative period The patient received appropriate medication(s), safely administered during the perioperative period Acuity Level PACU I FT Entry 1 Start Time 11/22/21 08:42:00 Stop Time 11/22/21 09:12:00 Acuity Level Acuity Level I Last Modified By: Yani Roth RN 11/22/21 09:19:58 Finalized By: Yani Roth RN Document Signatures Signed By: Yani Roth RN 11/22/21 09:20 [facility] Main OR PACU II Recordon Main OR PACU II Record PACU Phase II Document Type FT Summary Primary Physician: Landen Duque Jr., MD Finalized Date/Time: 11/22/21 10:27:00 Pt. Name: CORNELIUS OLGUIN Sammi /Sex: 1970 Male Med Rec #: [id number] Physician: Landen Duque Jr., MD Financial #: [id number] Pt. Type: A Room/Bed: 09/04 Admit/Disch: 11/22/21 05:40:49 - Institution: Case Times PACU II FT Pre-Care Text: Identifies barriers to communication and implements measures to provide psychological support and determines knowledge level Develops individualized plan of care, and ensures continuity of care Maintains patient's dignity and privacy, and maintains patient confidentiality Identifies and reports philosophical, cultural, and spiritual beliefs and values Identifies individual values and wishes concerning care administers prescribed antibiotic therapy and immunizing agents as ordered, Evaluates postoperative tissue perfusion Implements thermoregulation measures, and monitors body temperature Evaluates postoperative respiratory status Evaluates postoperative cardiac status Evaluates postoperative neurological status Assesses pain control, collaborated in initiating patient-controlled analgesia and implements alternative methods of pain control Verifies allergies, administers prescribed medications and solutions, evaluates response to medications Entry 1 In PACU II 11/22/21 09:15:00 Discharge from PACU 11/22/21 10:25:00 II Outcomes Met? Yes Last Modified By: Jeanette Malik RN 11/22/21 10:26:59 Post-Care Text: The patient demonstrates knowledge of the expected response to the operative or invasive procedure The patient's care is consistent with the individualized perioperative plan of care The patient's right to privacy is maintained The patient's value system, lifestyle, ethnicity, and culture are considered, respected, and incorporated into the perioperative plan of care The patient participates in decisions affecting his or her perioperative plan of care. The patient is free from signs and symptoms of infection The patient has wound/tissue perfusion consistent with or improved from baseline levels established preoperatively The patient is at or returning to normothermia at the conclusion of the immediate postoperative period The patient's respiratory function is consistent with or improved from baseline levels established preoperatively The patient's cardiovascular status is consistent with or improved from baseline levels established preoperatively The patient's neurological status is consistent with or improved from baseline levels established preoperatively The patient demonstrates and/or reports adequate pain control throughout the perioperative period The patient received appropriate medication(s), safely administered during the perioperative period Finalized By: Jeanette Malik RN Document Signatures Signed By: Jeanette Malik RN 11/22/21 10:27 [facility] Main OR Preoperative Recordo n 11-22-2021 Main OR Preoperative Record PreOp Document Type FT Summary Primary Physician: Landen Duque Jr., MD Finalized Date/Time: 11/22/21 08:50:12 Pt. Name: CORNELIUS OLGUIN Sammi /Sex: 1970 Male Med Rec #: [id number] Physician: Landen Duque Jr., MD Financial #: [id number] Pt. Type: A Room/Bed: 02/ Admit/Disch: 11/22/21 05:40:49 - Institution: Case Times PreOp FT Pre-Care Text: Verifies consent for planned procedure, identifies individual values and wishes concerning care, includes family members in perioperative teaching Entry 1 Patient Times. In Pre Surgery 11/22/21 05:45:00 Out Pre Surgery 11/22/21 07:45:00 Outcomes Met? Yes Last Modified By: Franny Persaud RN 11/22/21 08:50:11 Post-Care Text: The patient participates in decisions affecting his or her perioperative plan of care Finalized By: Franny Persaud RN Document Signatures Signed By: Franny Persaud RN 11/22/21 08:50 [facility] Monitor Recordon 11-22-2021 Monitor Record [id number]. [id number] [facility] Operative Reporton 2 Operative Report Patient: IRMA OLGUIN Age: 51 years Sex: Male : 1970 Associated Diagnoses: None Author: Landen Duque Jr., MD Postoperative Information Procedure: Elective circumcision Date/ Time: 11/22/2021 08:49:00 Preoperative Diagnosis: Phimosis ([id number] N47.1, Working, Medical). Postoperative Diagnosis: Phimosis ([id number] N47.1, Working, Medical). Performed by: Landen Duque Jr., MD. Findings: This patient is a 51-year-old male with a history of phimosis. He is being brought to the operating suite today for elective circumcision. The procedure, risk, alternatives and potential complications have been discussed with the patient preoperatively. These include but are not limited to bleeding, pain, infection, recurrent phimosis, anesthetic or cardiovascular problems among others. This patient was brought to the operating suite where he was placed under general anesthesia in supine position. The dental area was shaved prepped and draped in usual fashion for circumcision. 1% Xylocaine solution was injected at the base of the penis for a penile block. 10 cc was used. When this was completed the foreskin was extended over the glans and a marking pen was used to demarcate the line of incision. The foreskin was then retracted and a circumscribing incision was made using a Bovie with the needle tip. The circumscribing incision was then carried to the shaft skin where the marker had been used. A sleeve of tissue was carefully removed effectively eliminating the phimosis. Skin edges were approximated using 3-0 Vicryl simple stitches. When this was completed the dressing was laced. It consisted of bacitracin ointment Vaseline gauze and a gauze wrap. Once the dressing was placed the patient was aroused from anesthesia and transported to recovery in good condition. He will be discharged home after short stay in recovery. Home-going medication will include an oral antibiotic and oral pain medication. The patient will be instructed to limit his physical activity for the next 24 hours. He may shower for the next week to 2 weeks but no tub baths for at least 1 week. We will plan to see him in the office for follow-up visit in 2 to 4 weeks. Final diagnosis: Phimosis Estimated blood loss: 2 cc Complications: None Procedure: Elective circumcision Landen Duque Jr., MD, FACS. Specimens Removed: Foreskin. Estimated Blood Loss: 2 ml. Medications: 1% Xylocaine subcu at base of penis 10 cc. Complications: None. Anesthesia type: General. [facility] Comment on above: Result Comment: Elec tronically Signed By: Neto Keith MD, Landen Chapa\.br\Date and Time Signed: 11/22/21 08:54 EDT Outpatient Surgery Discharge Instructionon 11-22-2021 Outpatient Surgery Discharge Instruction [place] [id number] Patient Discharge Instructions PERSON INFORMATION Name: CORNELIUS OLGUIN Date of : 1970 Current Date: 11/22/2021 09:07:43 PHYSICIANS Admitting Physician: Neto Keith MD, Landen Chapa Discharge Diagnosis: CORNELIUS OLGUIN has been given the following list of follow-up instructions, prescriptions, and patient education materials: PATIENT FOLLOW-UP INFORMATION Diet: Regular Discharge Activity: Resume normal activities in 24 hours Discharge Restrictions: No driving for 24 hrs Call Your Doctor For: Persistent or heavy bleeding Wound Care Instructions: Remove dressing as instructed Additional Instructions: No tub baths for at least 2 weeks. Patient may shower. IF UNABLE TO CONTACT YOUR PHYSICIAN AND YOU FEEL IT IS AN EMERGENCY, GO TO THE NEAREST EMERGENCY ROOM OR CALL [address] Sammi, have received the attached patient education materials/instructions and have verbalized understanding: May we do a follow up call? Yes No I was present when discharge instructions were given Patient Signature Date Clinican/Nurse Signature ___ Date Follow up: With: Address: When: [facility] [address] [place] [id number] [facility] () Within 2 to 4 weeks Pharmacy Information: You may receive a survey from [facility] [employer] asking you to rate your care experience. Your feedback is important and will help us understand what we do well and how we can improve the quality of care we provide to you, your loved ones and our community. It?s an honor to serve you. Thank you for choosing [facility] HERE ARE THE MEDICATION CHANGES THAT OCCURRED DURING YOUR HOSPITAL STAY New Medications [id number], [address], [place] [id number], [phone] acetaminophen-oxycodon e (Percocet 5 mg-325 mg oral tablet) 1 Tablets By Mouth every 6 hours as needed Pain 8-10. Refills: 0. doxycycline (doxycycline hyclate 100 mg Cap) 1 Capsules By Mouth 2 times a day. Refills: 0. Medications to Continue with No Changes Other Medications cephalexin (cephalexin 500 mg Cap) 1 Capsules By Mouth every 12 hours. empagliflozin (Jardiance 25 mg oral tablet) 1 Tablets By Mouth once a day (in the morning). fenofibrate (fenofibrate 145 mg Tab) 1 Tablets By Mouth every day. glimepiride (glimepiride 4 mg Tab) 1 Tablets By Mouth 2 times a day. levetiracetam (Keppra) 750 Milligram By Mouth 2 times a day., seizure levothyroxine (Synthroid 200 mcg (0.2 mg) Tab) 1 Tablets By Mouth every day. metformin (metformin 500 mg oral tablet) 1 Tablets By Mouth 2 times a day. oxcarbazepine (oxcarbazepine 150 mg Tab) 1 Tablets By Mouth 2 times a day. pioglitazone (pioglitazone 45 mg Tab) 1 Tablets By Mouth every day. sitagliptin (Januvia 100 mg Tab) 1 Tablets By Mouth at bedtime. verapamil (verapamil 180 mg ER Tab) 1 Tablets By Mouth at bedtime. PATIENT EDUCATION INFORMATION Instructions: Medication Leaflets: [facility] Patient Education - Texton 0 11-22-2021 Patient Education - Text [facility] Progress Note-Physicianon Progress Note-Physician Patient: CORNELIUS OLGUIN Age: 51 years Sex: Male : 1970 Associated Diagnoses: None Author: Yassine Plaza JR, DO Postoperative Information Post Operative Note: Post Anesthesia Care Unit. Anesthetic utilized: General, Monitored anesthesia care. Health Status Allergies: Allergic Reactions (Selected) Moderate Penicillin- Rash. Current medications: (Selected) Inpatient Medications Ordered Lactated Ringers IV Valerie 1000 mL 1,000 mL: 1,000 mL, IV, 150 mL/hr, Routine, Start date 11/22/21 6:00:00 EDT, 6.7 hour(s), Total volume (mL): 1,000, 123.5 kg, 2.36, m2 [place] 5/325 Tab: 1 tab(s), Tab, Oral, q4hr PRN Pain for 5 day(s), Stop date 11/27/21 8:41:00 EDT, Routine, Start date 11/22/21 8:42:00 EDT ketorolac 15 mg/mL Inj: 15 mg = 1 mL, Injection, IV Push, q4hr PRN Pain for 5 day(s), Stop date 11/27/21 8:41:00 EDT, Routine, Start date 11/22/21 8:42:00 EDT Prescriptions Prescribed Percocet 5 mg-325 mg oral tablet: 1 tab(s), Oral, q6hr Pain 8-10, 20 tab(s), Refill(s) 0, [id number], 162, cm, 04/18/22 6:31:00 EDT, Height/Length Dosing, 123.5, kg, 11/19/21 6:31:00 EDT, Weight Dosing doxycycline hyclate 100 mg Cap: 100 mg = 1 cap(s), Oral, BID, # 10 tab(s), Refills(s) 0, Pharmacy: [id number], 162, cm, 11/19/21 6:31:00 EDT, Height/Length Dosing, 123.5, kg, 11/19/21 6:31:00 EDT, Weight Dosing Documented Medications Documented Januvia 100 mg Tab: 100 mg = 1 tab(s), Oral, Bedtime, Refills(s) 0, Blood glucose Jardiance 25 mg oral tablet: 25 mg = 1 tab(s), Oral, qAM, Refills(s) 0, Blood glucose Keppra: 750 mg, Oral, BID, Refills(s) 0, Other (see comment) Synthroid 200 mcg (0.2 mg) Tab: 200 mcg = 1 tab(s), Oral, Daily, Refills(s) 0, Thyroid cephalexin 500 mg Cap: 500 mg = 1 cap(s), Oral, q12hr, Refills(s) 0, Infection or prophylaxis for antibiotics fenofibrate 145 mg Tab: 145 mg = 1 tab(s), Oral, Daily, Refills(s) 0, High cholesterol glimepiride 4 mg Tab: 4 mg = 1 tab(s), Oral, BID, Refills(s) 0, Blood glucose metformin 500 mg oral tablet: 500 mg = 1 tab(s), Oral, BID, Refills(s) 0, Blood glucose oxcarbazepine 150 mg Tab: 150 mg = 1 tab(s), Oral, BID, Refills(s) 0, Seizure pioglitazone 45 mg Tab: 45 mg = 1 tab(s), Oral, Daily, Refills(s) 0, Blood glucose verapamil 180 mg ER Tab: 180 mg = 1 tab(s), Oral, Bedtime, Refills(s) 0, High blood pressure Problem list: All Problems Diabetes / SNOMED CT 538467006 / Confirmed Seizures / SNOMED CT 807447440 / Confirmed Phimosis / SNOMED CT 4207068773 / Confirmed At risk for hypothyroidism / SNOMED CT 469391469 / Confirmed Resolved: Hypertension / SNOMED CT 4643621747 Resolved: Hypercholesteremia / SNOMED CT 98753737 Resolved: H/O head injury / SNOMED CT 800777357 fell off a ladder Physical Examination Intake and Output Denies significant n/v and is tolerating p.o. Vital Signs (last 24 hrs) Last Charted Heart Rate Apical 78 bpm (NOV 22 06:08) Resp Rate 18 br/min (NOV 22 09:55) SBP H 156mmHg (NOV 22 09:55) DBP H 98mmHg (NOV 22:55) SpO2 98 % (NOV 22 09:55) Pain assessment: Pain Assessment 11/22/2021 9:55 EDT Preliminary Pain Scale 0 Primary Pain Location Penile Numeric Pain Scale 0 = No pain Numeric Pain Score 0 11/22/2021 9:15 EDT Pain Symptoms Self Report No, able to self report Preliminary Pain Scale 0 Patient Preferred Pain Tool Numeric rating Numeric Pain Scale 0 = No pain Numeric Pain Score 0 11/22/2021 9:05 EDT Pain Symptoms Self Report No, able to self report 11/22/2021 8:50 EDT Pain Symptoms Self Report No, able to self report 11/22/2021 6:07 EDT Preliminary Pain Scale 3 11/22/2021 6:07 EDT Pain Symptoms Self Report Yes, able to self report Primary Pain Location Penile Primary Pain Quality Aching Patient Preferred Pain Tool Numeric rating Numeric Pain Scale 3 Numeric Pain Score 3 . Respiratory: Adequate air exchange with mosque of preoperative function.. Cardiovascular: Cardiovascular function is stable and has returned to preoperative levels.. Neurologic: Pt has returned to preoperative baseline.. Review / Management Condition: Stable. Assessment Anesthetic outcome No anesthetic complications noted. Plan Transfer/ Discharge: Patient can be discharged from PACU when criteria met. Condition good. [facility] Comment on above: Result Comment: Elec tronically Signed By: Yassine Plaza JR, DO.greta\Date and Time Signed: 11/22/21 14:15 EDT Progress Note-Physician Patient: CORNELIUS OLGUIN Age: 51 years Sex: Male : 1970 Associated Diagnoses: None Author: Yassine Plaza JR, DO Postoperative Information Post Operative Note: Post Anesthesia Care Unit. Anesthetic utilized: General, Monitored anesthesia care. Health Status Allergies: Allergic Reactions (Selected) Moderate Penicillin- Rash. Current medications: (Selected) Inpatient Medications Ordered clindamycin additive + Premix Dextrose 5% Diluent 50 mL: 600 mg = 50 mL, Soln-IV, IV Piggyback, Once, Stop date 11/22/21 6:00:00 EDT, Routine, Start date 11/22/21 6:00:00 EDT, 100 mL/hr, Infuse over 30 minute(s) gentamicin additive + Sodium Chloride 0.9% intravenous solution 50 mL: 120 mg = 3 mL, Injection, IV Piggyback, Once, Stop date 11/22/21 6:00:00 EDT, Routine, Start date 11/22/21 6:00:00 EDT, 106 mL/hr, Infuse over 30 minute(s) Documented Medications Documented Januvia 100 mg Tab: 100 mg = 1 tab(s), Oral, Bedtime, Refills(s) 0, Blood glucose Jardiance 25 mg oral tablet: 25 mg = 1 tab(s), Oral, qAM, Refills(s) 0, Blood glucose Keppra: 750 mg, Oral, BID, Refills(s) 0, Other (see comment) Synthroid 200 mcg (0.2 mg) Tab: 200 mcg = 1 tab(s), Oral, Daily, Refills(s) 0, Thyroid cephalexin 500 mg Cap: 500 mg = 1 cap(s), Oral, q12hr, Refills(s) 0, Infection or prophylaxis for antibiotics fenofibrate 145 mg Tab: 145 mg = 1 tab(s), Oral, Daily, Refills(s) 0, High cholesterol glimepiride 4 mg Tab: 4 mg = 1 tab(s), Oral, BID, Refills(s) 0, Blood glucose metformin 500 mg oral tablet: 500 mg = 1 tab(s), Oral, BID, Refills(s) 0, Blood glucose oxcarbazepine 150 mg Tab: 150 mg = 1 tab(s), Oral, BID, Refills(s) 0, Seizure pioglitazone 45 mg Tab: 45 mg = 1 tab(s), Oral, Daily, Refills(s) 0, Blood glucose verapamil 180 mg ER Tab: 180 mg = 1 tab(s), Oral, Bedtime, Refills(s) 0, High blood pressure Problem list: All Problems Diabetes / SNOMED CT 709597979 / Confirmed Seizures / SNOMED CT 424908774 / Confirmed Phimosis / SNOMED CT 5468570231 / Confirmed At risk for hypothyroidism / SNOMED CT 526614677 / Confirmed Resolved: Hypertension / SNOMED CT 2390909989 Resolved: Hypercholesteremia / SNOMED CT 13930187 Resolved: H/O head injury / SNOMED CT 580950021 fell off a ladder Physical Examination Intake and Output Denies significant n/v and is tolerating p.o. No qualifying data available Respiratory: Adequate air exchange with mosque of preoperative function.. Cardiovascular: Cardiovascular function is stable and has returned to preoperative levels.. Neurologic: Pt has returned to preoperative baseline.. Review / Management Condition: Stable. Assessment Anesthetic outcome No anesthetic complications noted. Plan Transfer/ Discharge: Patient can be discharged from PACU when criteria met. Condition good. [facility] Comment on above: Result Comment: Elec tronically Signed By: Yassine Plaza JR, DO Progress Note-Physicianon Progress Note-Physician Patient: CORNELIUS OLGUIN Age: 51 years Sex: Male : 1970 Associated Diagnoses: None Author: Yassine Plaza JR, DO Preoperative Information Anesthesia history: Patient History: Pt./ family denies any personal or family hx of problems/difficulties with anesthesia.. Re-eval prior to induction: Inital eval reviewed: No significant interval change, NPO 10 hours.. Review of Systems Constitutional: See nursing assessment.. Cardiovascular: Cardiac risk assessment performed. Pt. denies any significant change in their cv hx.. Respiratory: Pt. denies any signicant change in their respiratory status.. Neurologic: Pt. denies any acute neurological changes.. Health Status Allergies: Allergic Reactions (Selected) Moderate Penicillin- Rash., Allergies (1) Active Reaction penicillin Rash Current medications: (Selected) Inpatient Medications Ordered clindamycin additive + Premix Dextrose 5% Diluent 50 mL: 600 mg = 50 mL, Soln-IV, IV Piggyback, Once, Stop date 11/22/21 6:00:00 EDT, Routine, Start date 11/22/21 6:00:00 EDT, 100 mL/hr, Infuse over 30 minute(s) gentamicin additive + Sodium Chloride 0.9% intravenous solution 50 mL: 120 mg = 3 mL, Injection, IV Piggyback, Once, Stop date 11/22/21 6:00:00 EDT, Routine, Start date 11/22/21 6:00:00 EDT, 106 mL/hr, Infuse over 30 minute(s) Documented Medications Documented Januvia 100 mg Tab: 100 mg = 1 tab(s), Oral, Bedtime, Refills(s) 0, Blood glucose Jardiance 25 mg oral tablet: 25 mg = 1 tab(s), Oral, qAM, Refills(s) 0, Blood glucose Keppra: 750 mg, Oral, BID, Refills(s) 0, Other (see comment) Synthroid 200 mcg (0.2 mg) Tab: 200 mcg = 1 tab(s), Oral, Daily, Refills(s) 0, Thyroid cephalexin 500 mg Cap: 500 mg = 1 cap(s), Oral, q12hr, Refills(s) 0, Infection or prophylaxis for antibiotics fenofibrate 145 mg Tab: 145 mg = 1 tab(s), Oral, Daily, Refills(s) 0, High cholesterol glimepiride 4 mg Tab: 4 mg = 1 tab(s), Oral, BID, Refills(s) 0, Blood glucose metformin 500 mg oral tablet: 500 mg = 1 tab(s), Oral, BID, Refills(s) 0, Blood glucose oxcarbazepine 150 mg Tab: 150 mg = 1 tab(s), Oral, BID, Refills(s) 0, Seizure pioglitazone 45 mg Tab: 45 mg = 1 tab(s), Oral, Daily, Refills(s) 0, Blood glucose verapamil 180 mg ER Tab: 180 mg = 1 tab(s), Oral, Bedtime, Refills(s) 0, High blood pressure, Medications (2) Active Scheduled: (2) clindamycin 600 mg/50 mL-D5W + Dextrose 5% Premix Diluent 50 mL 600 mg 50 mL, IV Piggyback, Once gentamicin + Sodium Chloride 0.9% 50 mL 120 mg 3 mL, IV Piggyback, Once Continuous: (0) PRN: (0) Problem list: All Problems Diabetes / SNOMED CT 500875238 / Confirmed Seizures / SNOMED CT 038205351 / Confirmed Phimosis / SNOMED CT 7832541689 / Confirmed At risk for hypothyroidism / SNOMED CT 491028580 / Confirmed Resolved: Hypertension / SNOMED CT 0231148150 Resolved: Hypercholesteremia / SNOMED CT 94585344 Resolved: H/O head injury / SNOMED CT 283355817 fell off a ladder, Active Problems (4) At risk for hypothyroidism Diabetes Phimosis Seizures Histories Past Medical History: No active or resolved past medical history items have been selected or recorded. Family History: Hypertension Father Congenital heart disease Father Diabetes mellitus type 1 Father Procedure history: Colonoscopy (245082724). Social History Social & Psychosocial Habits Alcohol 11/16/2021 Risk Assessment: Denies Alcohol Use Substance Abuse 11/16/2021 Risk Assessment: Denies Substance Abuse Tobacco 11/16/2021 Smokeless tobacco use: Current vaping or e-cigar Type: Vaping . Physical Examination No qualifying data available Airway: Normal oral/pharyngeal anatomy.. Respiratory: Adequate air exchange.. Cardiovascular: Adequate perfusion and function. Review / Management Results review: No qualifying data available . Plan [place] [employer] Anesthesiologists (ASA) physical status classification: Class III. Anesthetic Preoperative Plan Anesthesia: General. . Anesthetic plan, risks, benefits, and alternatives discussed with the patient and/or family. Pt. and/or family present and agree to proceed as planned.. Discussed the importance of abstaining from tobacco products, and offered counseling if desired. Normal [facility] Comment on above: Result Comment: Elec tronically Signed By: Yassine Plaza JR, DO.greta\Date and Time Signed: 11/21/21 07:39 EDT Coding Summary.on 11-20-2021 Coding Summary. [id number] Gh 0bWw+PGhlYWQ+NB0NKKZfB 75cwACqyN8GZ9lCRB5OEIC ERTDOWW6MSL8gqGK8FGupF 2VybiAv FykimLBaTB77UBf7XRY7qM uqZFtcyC9dhYSdM8w7ChLx MJ22iW39ALswELQeRcE6Do ZpbjsgbWFy U7ytLgDbbGLvGvk+PHRhYm xlIHdpZHRoPScxMDAlJyBz kHxfTM3iWu4iHSPpESYxsE xhcHNlOiBj e5okBNXqEGaaWO6rbRgaG5 UtaXH1XITjm6x7Ds76tOK+ JRUnQSI0sUsyAZaxy479Np Pzh9drXJS9 sSBpMXatRID4T91ql2W0VA OeIGInZJU2hNP2jB0lxYyk onknW4JrlNEiGaM6MPU5qX WfyT3slZhe ifvunT1mVtx+R43LBG5HXH LAEH1NMdd6T2ReDofbwBS+ VT70KFZjCA13qQNmqPZkl1 mfbYx7FcWf TPNuLSK1rSfnXKukb9KaII OuV60syTVje0Z2SEJwtEal kRJaCvPjmIY2zA9iLNdptm vyo1qacdiu Lplqr0kcjl74aP33S27jQM qaZIJfHKO9RCTgRLDpzGiv rz7iyF8wLt3+LTnhn7ptu5 qeaFw4OiXj SNStplPeiVptSKP8m6YbKf 56O7QrcTxmz3QsCxf9un54 pJLbj9U3uFF0EVkwGYCsjO 8pEWhgGqX6 NVNfDsEpeW48oQTtDXowJr 8hqWmeyWjeZY7vXFVheeid DOSlvD3vWEGqcVMnxTedGD 4wNTBpbjtm p572RhJwHOP9BABjcCQpA2 VkqD4fPmBvYUJiEKPsB9Nx sLDoRFhlR738MGevKrO4SY WkibVfI5Cc CFMbiHsuGmL2z0J5Xh7Uw1 VhseawYPB2SDheHAA4ZxW4 ZuDvIhT9A9MeNdq9NVIckP snTQ2oS3En KHJkzyyraplzyWK9CGRpHR ZhxG65vRWvKYzvQn0yj7G5 h219LYVwUCLfpV58Do4hkZ ogMTBwdCBU sN7xfyaam8dkmcquCaZgKO UkPZu3OXz1QWQcyEquUnTp FQF1JaX4NOX0rEZztW3ngV uciwwbsQ1s Oyc+Z62zgX9pWNF6ICZ0by naSTTtdoItSM41YL52A5Bj PjwvdGFibGU+PGRpdiBzdH soJR7xOyRy x8ucv7UqNRhoX7AbICIeXT peFnz0IIFrCAF2hQN1oI2k NVYqNDhuk6I9bGJ3T2Bsbc Mmpc6hu3jm FZWyKPasY93ihJUgs6A4LE CiwXO8AGZxqUnxKiHruO97 Oyc+SOWelDepk2BrEewji6 tgx9ohuYi5 ApOmVQMhvjXzqCnwKLU4x5 OwGi14E13rAUyoADOuNOZg ACCkAUHieVufts5yiR7fVg 8+PGNvbCB3 vJH9oM3nXZQaVdB5NRyoY4 48QzRuyELrGxnah4wpo3vh yDr3VpKrJJXnzuRzyWicLS C6p1NwSg46 L28aYFszCUGvLUWvYLLjMP MvmFoech1urH3rQk0+PC9j p9lmnj68oX62vXM+PHRkIH W2hDgeWWmn QQJyvZ9nNEyuUaJ2XUAvSc ZwfM01iOTvHZghEi6pqFwn gZmcZQ5yDCRwwbvom522Uj Whs9pjGMGq pCAdKVmfZXI3K79qs8X0IH QkLQElADB1pWX4oQ5bgLaq bjogbGVmdDsgdmVydGljYW esYAglO188 IHRvcDsnPlBhdGllbnQgTm OoQRl6E9BdObu0ZIFtqJlz TE3cxGTwBAyzQi6ueTtgtX ywFA5nQUTj qbyik533HxElh2ivNGZkiV MyAEmkCGU8E04eb6C2MKWi WUAeRJW7hTA2vC7byLrpej ogbGVmdDsg hyLnfNvbGKlqOEbgK870AQ RvcDsnPkJpcnRoIERhdGU6 LP28JV89rCNue1K8hPR5Z6 BhZGRpbmct vwhfdRH2LSJhLQXfoS87Ih 6clGdvFr6oHTCsVRJ3LTBs xOImW9VmnG9iGiJvHKQgIE EuJ8DjtATa CImaG934IBiqWmG5ZJPxta KfR0DwTWZldIcbLuJ0y7H1 Xq5ZS0P6OJ45LD15yMZse9 W1qXK1N8Af IGGfrlpygcyuzZG7RUXrHH LaiK29Mi9msYfuAb0oGBMt XVN0KCYtpNCeN6NgaB6yWt AjMDAwMDAw Y7LxtWWfGAcpY951VHpaKe D5ZZNlpoAeI5SwCKBukLsn ExB2t9X0Jv0XSXe8MB80NR 85vLYxa2E5 rDE0K8VhPXJohybxnwfqcZ C2SCYbVHHmxQ74Jb9rwTtn Ma4aVEXbSHW4FVLfvUHdR9 IgpP8yCgEi IELcPJBnH9QtyJUkNUjdG7 93UBuaLxM9KVArrfPxV5Iy SEQbxBmuVjJ1j0S2Xi4WPK LfKK34DYE7 oQD4FD18NJ40C8VgKlpupW FibGU+PHRhYmxlIHdpZHRo GWbxJHNfNoIktMigFN8xXp 9yZGVyLWNv vUzcgPBiHePio9gvAUKoLO myIS5inZixH8FvvQV0QSAw v4z3Ns60E94aP2EfqFM+PG BjmYT0wBA4 aH3aPgMbVbD5GYoeL319Qg TlgQWvMsgdd4mnn1ghzMp9 EkZ0KCWdddXhyEvqSJU4b8 AlTg43S21h IHdpZHRoPSIxNSUiIHZhbG xrdw2weK1aCs2+PGNvbCB3 gHV4xY6iDrVhGyL8PXiaD3 49InRvcCIv Zduup4cmp8oqvQh7RaFeAR YzsdMbbCqzMCJ0o9YcSy57 D5VjqNbia8IjXty5dg36tQ Ugc3G2mUA6 R9RbSRZatehkkQSitXaqGD 2qAGItqlanVZVbsR4jLESs X3d7SpCfYhZ1CItnT1Rylc F9AEBdlBEm ZNwsZIO2G59ls2F0YFXdXA SiNFD2gLV6yZ3muNqiflub bGVmdDsgdmVydGljYWwtYW qnR072IFFp rRqyDWQgrS8rQRCwqPPgvG grAY6yXBCsjevzMlJCT4QV VZpmGPRFACMHJI86TY04dZ Oce0Q8gJA1 B9OlFISfyeuoqanuhYA2WE ZoGATqmJ84aNDmEMhoIn0d k4X1e450PCQzABIkuI51Or 9udDogMTBw bRNKfN9mcgdxv5pkmbuqMi YwAWSgQKe2CJf5OJZqySxc HwAqJZW4QaP2VXJ1dLKpsS 1hbGlnbjog zQ0wAxq+RXNjUmPeEVt3ES wvdGQ+CZCkIUI8fTxxHQnp NTObfE8qUPFbL3u1AoGjEd S3YKqsJ6Fk ERXtquvvAg93iO4fDcZzTx B3BWufM5ZqowJ8JECoyXHf UUhoPLP6I08ly3P8GJGpZI FkRTB4tQX6 pD0rqYlpitmzlVXuwYvonh OyyTzlPQxfDDpxB918WLLo sIqzUqQcBRdyQEWzIA19OY 17gJKxc4U8 zJZ2P6SiIDQmnvejrzqfwG G5HLPzCUPfzJ85wSLaBQia Nx1ur1R7v345DVOaXQTwbW 91Jx9zwXny PDEbnAZZiG2fadsdk8wliq lwUdNdFHIhSIe3PSg1LSBa qCdzBmMeRAL0WbW6SLE1aR VibL1hoSrx vrznhO6iObe+TWFsZTwvdG Q+NZWfFRE1zZjrQVzpJTCx nI6wGZYfH0k8AfXhVoU7IZ zlM0MdWLXy ilbcSj10wK6xPtYkIlV3GL reF4XmpeA1WUNvyJSeQGld EPJ3K69kw3I8VNGySVZtVP N0cNJ7qP5n bGlnbjogbGVmdDsgdmVydG beUZbyTBvgG047YGJneCga Ux81zIOhdFqvhkS1L8ZiLj wvdHI+PC90 IKMiIV19qLYcqVQdd6xhcO f0WvNqGAHrSMJ4yBfsWFnw e2AuIFCpS56xnBXjn8B0YN NvbGxhcHNl DjNzqMQ0uU5jDLpipcbrv9 oqsqpoKckgg9hnqn01zP71 Y61tKBcaRUCaPHFxXZHjLS OohUgbwf2m dO0hRz4+QLFywHG0yKH6dB 8fKhJwUuG3XIpmM847RwZv wOVuWjisw8ohb5slnHu8Vc IwJSIgdmFs uHxeQCP9t5NmZi52I72lVK dpZHRoPSIyMCUiIHZhbGln cx6qrA7dEh0+GR3eo5qzwk 93yO32aXX+ UBVyMZM5lJkmCZwzBQRjzQ 3rMLraAqC2PTXxCpWqlL78 mSJiOAtdSz2lkPjzyHtpJF 4wNTBpbjtm i126RzUvh8wfWCKaqJYiOV sxDVZ4B55or8P6RFYsLSWn FIX7nFR3cK7hdScjcaebvG VmdDsgdmVy zFflTIocLEljJ987FVAifS xfFxAxlYSgM5hohwIMVR8y OjwvdGQ+GWMtTQE1uZdxLX luHIRfpN7k JHYkD4e6EpAmDaO0MTavQ1 SysiI4TRRsnBAiMJOnvYBC qI8epslpv4gukklpCxQfIZ QtGMg4KPg1 BYQyqZgzIjGiNNL1MfZ8EF T3yFVvdE2ufTjwqdhaoU0g Oyc+RklOOjwvdGQ+PHRkIH M6sLxyUZkm CZOinG6aAHFdE9j8FhOsKg U2XEtmS0LzviK9DQHtdJFx SHHwoANIeZ8zzauxu2eriw ogIzAwMDAw BMw8ETd3BDLjtOriJuJzYE U9BnA7XCG3cWSfpY4jnJaz gxsvgQ2eHzz+TVJOOjwvdG Q+PHRkIHN0 hJzgQQgnDCBmyL2mPXCzR5 d6WuUuDmL5IXegT9TshgS6 RYZdiTVuPNShaCKZyA5kxm hdn5mufeko HdNmOJDqRTs2LVl7HVQntM dwNiLySAY0ReU4EGE3dKZc vT9nkYcddjlyoB8iBes+UG G8XRN2RG36 MK78N7IwMvqcdNZjaWU+PH RhYmxlIHdpZHRoPScxMDAl QsXmuKovTM0kXv0oEKScGM NvbGxhcHNl OiBj (more content not included)... Normal [facility] Formson 11-20-2021 Forms [id number]#1.0 0CD:127 Normal [facility] Immunization Recordson 11-19 Immunization Records [id number]#1.0 0CD:127 Normal [facility] Auto Diffon 11-16-2021 Basophils/100 WBC (Bld) 1.1 % Normal 0.0-2.0 [facility] Comment on above: Order Comment: Order Added by Discern Expert. Performed By: #### 2 919749, 3251501, 31255261, 0880114, 34443167 ####[facility] [address] [place] [address] Basophils/Leukocytes Auto (Bld) [Pure # fraction] 0.1 E9/L Normal 0.0-0.2 [facility] Comment on above: Order Comment: Order Added by Discern Expert. Performed By: #### 2 321067, 1704328, 41540379, 3478860, 64787346 ####[address] [place] [address] Eosinophils/100 WBC (Bld) 3.1 % Normal 0.0-8.0 [facility] Comment on above: Order Comment: Order Added by Discern Expert. Performed By: #### 2 631738, 2214921, 92462607, 5113417, 86581856 ####[facility] [address] [place] [address] Eosinophils/Leukocyt es Auto (Bld) [Pure # fraction] 0.2 E9/L Normal 0.0-0.5 [facility] Comment on above: Order Comment: Order Added by Discern Expert. Performed By: #### 2 758937, 9048482, 33032809, 4713199, 24506934 ####[facility] [address] [place] [address] Lymphocytes/100 WBC (Bld) 29.1 % Normal 14.0-50.0 [facility] Comment on above: Order Comment: Order Added by Discern Expert. Performed By: #### 2 037320, 1170059, 67501102, 1651308, 43884372 ####[address] [place] [address] Lymphocytes/Leukocyt es Auto (Bld) [Pure # fraction] 2.3 E9/L Normal 1.0-4.0 [facility] Comment on above: Order Comment: Order Added by Discern Expert. Performed By: #### 2 538990, 4059661, 04839407, 7599108, 03889719 ####[address] [address] Monocytes/100 WBC (Bld) 10.9 % Normal 4.0-14.0 [facility] Comment on above: Order Comment: Order Added by Mala Expert. Performed By: #### 2 289046, 3356251, 51790541, 7247769, 83901539 ####[address] [address] Monocytes/Leukocytes Auto (Bld) [Pure # fraction] 0.8 E9/L Normal 0.2-1.0 [facility] Comment on above: Order Comment: Order Added by Mala Expert. Performed By: #### 2 915269, 0880994, 47247655, 2005270, 06514300 ####[address] [address] Neutrophils/100 WBC (Bld) 55.8 % Normal 36.0-75.0 [facility] Comment on above: Order Comment: Order Added by Discern Expert. Performed By: #### 2 613854, 3453760, 29664662, 1967473, 64403598 ####[address] [address] Neutrophils/Leukocyt es Auto (Bld) [Pure # fraction] 4.3 E9/L Normal 2.0-7.5 [facility] Comment on above: Order Comment: Order Added by Discern Expert. Performed By: #### 2 931361, 4508272, 96061986, 5042936, 32827986 ####[facility] [address] [place] [address] BMPon 11-16-2021 Anion gap [Moles/Vol] 15 mmol/L Normal 6-16 [facility] Comment on above: Performed By: #### 2 667334, 7376191, 59564528, 5090978, 47653726 ####[facility] [address] [place] [address] Calcium [Mass/Vol] 9.6 mg/dL Normal 8.9-11.1 [facility] Comment on above: Performed By: #### 2 820746, 8488754, 86553029, 8417486, 28453830 ####[facility] [address] [place] [address] Chloride [Moles/Vol] 102 mmol/L Normal 101-111 [facility] Comment on above: Performed By: #### 2 279535, 1550949, 18247210, 7114486, 21306823 ####[facility] [address] [place] [address] CO2 [Moles/Vol] 23 mmol/L Normal 21-[address] [facility] Comment on above: Performed By: #### 2 951937, 7018642, 40352054, 5690984, 49886964 ####[facility] [address] [place] [address] Creatinine [Mass/Vol] 1.0 mg/dL Normal 0.5-1.3 [facility] Comment on above: Performed By: #### 2 564007, 7474917, 93994767, 1496845, 42275135 ####[facility] [address] [facility] [place] [address] Glucose [Mass/Vol] 150 mg/dL Normal 55-199 [facility] Comment on above: Result Comment: If t his glucose result represents a fasting glucose, interpretation should refer to the following reference range: 55-99 mg/dL Performed By: #### 2 427871, 5760472, 00224555, 8453196, 63790328 ####[facility] [address] [place] [address] Potassium [Moles/Vol] 4.7 mmol/L Normal 3.5-5.3 [facility] Comment on above: Performed By: #### 2 069142, 9238499, 12906776, 2952721, 55467262 ####[facility] [address] [place] [address] Sodium [Moles/Vol] 135 mmol/L Normal 135-145 [facility] Comment on above: Performed By: #### 2 325779, 5677296, 92016261, 5284075, 69362147 ####[facility] [address] [place] [address] Urea nitrogen [Mass/Vol] 20 mg/dL Normal 5-21 [facility] Comment on above: Performed By: #### 2 911135, 2146040, 43603586, 0756532, 18146490 ####[facility] [address] [place] [address] Urea nitrogen/Creatinine [Mass ratio] 20 No Units Normal 10-20 [facility] Comment on above: Performed By: #### 2 791954, 9768639, 01553198, 6784992, 58852833 ####[facility] [address] [place] [address] CBC w/ Auto Diffon Erythrocyte distribution width (RBC) [Ratio] 15.1 % High 10.9-14.2 [facility] Comment on above: Performed By: #### 2 626580, 9098499, 04465968, 3823726, 07032906 ####[facility] [address] [place] [address] Hematocrit (Bld) [Volume fraction] 46.1 % Normal 37.7-49.0 [facility] Comment on above: Performed By: #### 2 414851, 8395783, 91137254, 1950816, 48724076 ####[facility] [address] [place] [address] Hemoglobin (Bld) [Mass/Vol] 15.5 g/dL Normal 13.5-17.5 [facility] Comment on above: Performed By: #### 2 274692, 8606602, 84377864, 0439606, 57622607 ####[address] [address] MCH (RBC) [Entitic mass] 27.6 pg Normal 27.0-34.0 [facility] Comment on above: Performed By: #### 2 455211, 0837070, 10179434, 8728624, 35082813 ####[address] [address] MCHC (RBC) [Mass/Vol] 33.7 g/dL Normal 31.4-36.0 [facility] Comment on above: Performed By: #### 2 588778, 6964306, 98579135, 9998640, 25293544 ####[address] [address] MCV (RBC) [Entitic vol] 81.8 fL Normal 80.0-100.0 [facility] Comment on above: Performed By: #### 2 932136, 1128261, 65675553, 3648913, 67772656 ####[address] [address] Platelet mean volume (Bld) [Entitic vol] 9.3 fL Normal 6.4-10.8 [facility] Comment on above: Performed By: #### 2 064053, 7522008, 09153987, 3105807, 21559457 ####[address] [address] Platelets (Bld) [#/Vol] 158.0 E9/L Normal 150.0-500.0 [facility] Comment on above: Performed By: #### 2 683869, 5409670, 16612829, 0269028, 83584906 ####[facility] [address] [place] [address] RBC (Bld) [#/Vol] 5.6 E12/L Normal 4.3-5.9 [facility] Comment on above: Performed By: #### 2 796722, 0096654, 62564691, 6416600, 05495133 ####[facility] [address] [place] [address] WBC corrected for nucl RBC Auto (Bld) [#/Vol] 7.8 E9/L Normal 4.0-11.0 [facility] Comment on above: Result Comment: Slid e reviewed by ts . Performed By: #### 2 487011, 1266447, 59238003, 0966942, 55029784 ####[facility] [address] [place] [address] Consent for Treatmenton 11-02 Consent for Treatment [id number]#1.0 0CD:127 Normal [facility] Consent for Treatment [id number]#1.0 0CD:127 Normal [facility] PT & PTTon 11-16-2021 aPTT Coag (PPP) [Time] 32.9 second(s) Normal 25.1-36.5 [facility] Comment on above: Result Comment: Hepa rin therapeutic range (represented by Anti-Factor Xa activity of 0.2 - 0.4 U/mL) corresponds to PTT of 56.6 - 109.0 sec. Performed By: #### 2 831152, 8215272, 00329385, 3467162, 43068264 ####[facility] [address] [place] [address] INR Coag (PPP) [Relative time] 1.0 {INR} Invalid Interpretation Code [facility] Comment on above: Result Comment: INR results are specifically intended to assess patients stabilized on long-term Anticoagulation therapy suggested INR?s ?Less Intensive Anticoagulation? 2.0 ? 3.0 Conventional Range 3.0 ? 4.5 Performed By: #### 2 061782, 6755827, 15178413, 4368792, 50119716 ####[facility] [address] [place] [address] PT Coag (PPP) [Time] 11.9 second(s) Normal 10.2-12.9 [facility] Comment on above: Performed By: #### 2 223923, 3656132, 59624631, 6038718, 15139051 ####[facility] [address] [place] [address] UA With Cult Reflexon 2021 Bilirubin Ql (U) Negative Normal Negative [facility] Comment on above: Performed By: #### 1 6122232 ####[address] [address] Clarity (U) CLEAR Normal Clear [facility] Comment on above: Performed By: #### 1 3918592 ####[address] [address] Color (U) STRAW Invalid Interpretation Code [facility] Comment on above: Performed By: #### 1 2970346 ####[facility] [address] [place] [address] Epithelial cells.squamous LM.HPF (Urine sed) [#/Area] 0-2 Normal 0-2 [facility] Comment on above: Performed By: #### 1 8881071 ####[facility] [address] [place] [address] Glucose Test strip (U) [Mass/Vol] 3+ Abnormal Negative [facility] Comment on above: Performed By: #### 1 3785164 ####[address] [address] Hemoglobin Ql (U) Negative Normal Negative [facility] Comment on above: Performed By: #### 1 7899540 ####[address] [address] Ketones (U) [Mass/Vol] Negative Normal Negative [facility] Comment on above: Performed By: #### 1 8894724 ####[address] [place] [address] [place].plasma/Lithi um.RBC (Bld) [Mass ratio] 4-20 Normal 0-3 [facility] Comment on above: Performed By: #### 1 1350207 ####[address] [address] Nitrite Ql (U) Negative Normal Negative [facility] Comment on above: Performed By: #### 1 7539956 ####[address] [address] pH (U) 5.5 [pH] Invalid Interpretation Code 5.0-9.0 [facility] Comment on above: Performed By: #### 1 6495903 ####[address] [address] Protein (U) [Mass/Vol] Negative Normal Negative [facility] Comment on above: Performed By: #### 1 2489984 ####[address] [address] Specific gravity (U) [Rel density] 1.020 Invalid Interpretation Code 1.005-1.030 [facility] Comment on above: Performed By: #### 1 6059150 ####[address] [address] Type of Urine collection method Clean Catch Normal [facility] Comment on above: Performed By: #### 1 [id number] ####[address] [address] Urobilinogen Qn (U) 0.2 {Cinthya'U}/dL Normal 0.0-1.0 [facility] Comment on above: Performed By: #### 1 [id number] ####[address] [address] WBC Auto Ql (U) Negative Normal Negative [facility] Comment on above: Performed By: #### 1 [id number] ####[facility] [address] [place] [address] WBC LM.HPF (Urine sed) [#/Area] 0-5 Normal 0-5 [facility] Comment on above: Performed By: #### 1 [id number] ####[facility] [address] [place] [address] XR Chest 2 Viewson 2 XR Chest 2 Views Exam Date/Time: 11/16/2021 15:09 EDT Reason for Exam: PRE OP Report IMPRESSION: NO RADIOGRAPHIC EVIDENCE OF ACTIVE DISEASE IN THE CHEST. CLINICAL INFORMATION: PRE OP COMPARISON: None available. FINDINGS: Two views of the chest were obtained. Heart and mediastinum appear normal. The lungs appear clear. Visualized bony thorax and remainder of the chest appears unremarkable. FINAL REPORT Dictated: 11/16/2021 3:19 pm Toy Hubbard M.D. Signed (Electronic Signature): 11/16/2021 3:19 pm Signed by: Toy Hubbard M.D. Transcribed by: ESTELLE Technologist: SCOTTY Normal [facility] eGFRon 11-16-2021 GFR/1.73 sq M.predicted among blacks MDRD (S/P/Bld) [Vol rate/Area] mL/min/{1.73_m2} Normal >=59 [facility] Comment on above: Order Comment: Order added by Discern Expert. Result Comment: eGFR is race adjusted. AA=. Performed By: #### 2 [id number], [id number], [id number] ####[facility] [address] [place] [address] GFR/1.73 sq M.predicted among non-blacks MDRD (S/P/Bld) [Vol rate/Area] mL/min/{1.73_m2} Normal >=59 [facility] Comment on above: Order Comment: Order added by Discern Expert. Result Comment: [employer] Superintendent nando kidney disease could be indicated at eGFR's of less than 60 mL/min/1.73m2. Kidney failure is indicated at less than 15 mL/min/1.73m2. Performed By: #### 2 [id number], [id number], [id number] ####[facility] [address] [place] [address] Pre-Certification Formon Pre-Certification Form [id number]. 00CD:127 Normal [facility] Formson 11-09-2021 Forms [id number] CD:127 Normal [facility] Physician Referralon 022 Physician Referral [id number]#1.0 0CD:127 Normal [facility] Patient Educationon 09-04-19 22 Patient Education Urology Urinary Frequency, Adult Urinary frequency means urinating more often than usual. You may urinate every 1?2 hours even though you drink a normal amount of fluid and do not have a bladder infection or condition. Although you urinate more often than normal, the total amount of urine produced in a day is normal. With urinary frequency, you may have an urgent need to urinate often. The stress and anxiety of needing to find a bathroom quickly can make this urge worse. This condition may go away on its own or you may need treatment at home. Home treatment may include bladder training, exercises, taking medicines, or making changes to your diet. Follow these instructions at home: Bladder health ? Keep a bladder diary if told by your health care provider. Keep track of: ? What you eat and drink. ? How often you urinate. ? How much you urinate. ? Follow a bladder training program if told by your health care provider. This may include: ? Learning to delay going to the bathroom. ? Double urinating (voiding). This helps if you are not completely emptying your bladder. ? Scheduled voiding. ? Do Kegel exercises as told by your health care provider. Kegel exercises strengthen the muscles that help control urination, which may help the condition. Eating and drinking ? If told by your health care provider, make diet changes, such as: ? Avoiding caffeine. ? Drinking fewer fluids, especially alcohol. ? Not drinking in the evening. ? Avoiding foods or drinks that may irritate the bladder. These include coffee, tea, soda, artificial sweeteners, citrus, tomato-based foods, and chocolate. ? Eating foods that help prevent or ease constipation. Constipation can make this condition worse. Your health care provider may recommend that you: ? Drink enough fluid to keep your urine pale yellow. ? Take dbdc-olf-niorbaj or prescription medicines. ? Eat foods that are high in fiber, such as beans, whole grains, and fresh fruits and vegetables. ? Limit foods that are high in fat and processed sugars, such as fried or sweet foods. General instructions ? Take ztaz-pda-wctixgx and prescription medicines only as told by your health care provider. ? Keep all follow-up visits as told by your health care provider. This is important. Contact a health care provider if: ? You start urinating more often. ? You feel pain or irritation when you urinate. ? You notice blood in your urine. ? Your urine looks cloudy. ? You develop a fever. ? You begin vomiting. Get help right away if: ? You are unable to urinate. Summary ? Urinary frequency means urinating more often than usual. With urinary frequency, you may urinate every 1?2 hours even though you drink a normal amount of fluid and do not have a bladder infection or other bladder condition. ? Your health care provider may recommend that you keep a bladder diary, follow a bladder training program, or make dietary changes. ? If told by your health care provider, do Kegel exercises to strengthen the muscles that help control urination. ? Take cpjp-pml-wdtfkxk and prescription medicines only as told by your health care provider. ? Contact a health care provider if your symptoms do not improve or get worse. This information is not intended to replace advice given to you by your health care provider. Make sure you discuss any questions you have with your health care provider. Document Released: 05/17/2010 Document Revised: 01/28/2019 Document Reviewed: 01/28/2019 [employer] Patient Education ? 2020 [employer] Balanitis Balanitis is swelling and irritation (inflammation) of the head of the penis (glans penis). The condition may also cause inflammation of the skin around the glans penis (foreskin) in men who have not been circumcised. It may develop because of an infection or another medical condition. Balanitis occurs most often among men who have not had their foreskin removed (uncircumcised men). Balanitis sometimes causes scarring of the penis or foreskin, which can require surgery. Untreated balanitis can increase the risk of penile cancer. What are the causes? Common causes of this condition include: ? Poor personal hygiene, especially in uncircumcised men. Not cleaning the glans penis and foreskin well can result in buildup of bacteria, viruses, and yeast, which can lead to infection and inflammation. ? Irritation and lack of air flow due to fluid (smegma) that can build up on the glans penis. Other causes include: ? Chemical irritation from products such as soaps or shower gels (especially those that have fragrance), condoms, personal lubricants, petroleum jelly, spermicides, or fabric softeners. ? Skin conditions, such as eczema, dermatitis, and psoriasis. ? Allergies to medicines, such as tetracycline and sulfa drugs. ? Certain medical conditions, including liver cirrhosis, congestive heart failure, diabetes, (more content not included)... Normal [facility] Urology Office/Clinic Noteon 09-04-2021 Urology Office/Clinic Note Chief Complaint Patient in office due to foreskin issues HPI Staff New patient in office due to foreskin issues. Patient was referred to our office by Dr. Espino, this is patients PCP. Patient states he has been having this issue for a while. States he has some issues pulling the foreskin back, States he has been having constant infections for the past 5 years. States infection symptoms were pins and needles sensations when pulling the skin back. States he has been on ABX and the symptoms would clear up. States after a few days of being off the ABX, he would have symptoms again. States at times his pins and needles sensation is so intense he can not get the skin pulled back. States he has tried 2-3 showers a day, with no relief. Dysuria: admits, when urine was cloudy/infection symptoms present Incomplete bladder emptying: admits, not sure if this is related to the foreskin Hematuria: denies Frequency: admits Urgency: admits Nocturia: 6 x a night Stream: steady Leaking: denies Post void dripping: denies Wearing pads/ Depends: denies Urge incontinence: denies Stress incontinence: denies Incontinence without Sensory Awareness: denies Abdominal pain: denies Flank pain: denies Sexual complaints: _ History of Present Illness I have reviewed and verified the staff HPI to be accurate for this encounter. Review of Systems PHQ Score Initial Depression Screen Score: 0 ROS - Provider Constitutional: denies weight loss, denies hot flashes. Eyes: denies eye problems. Gastrointestinal: denies nausea, denies vomiting. Cardiovascular: denies chest pain or angina. Integumentary: no dryness Musculoskeletal: denies musculoskeletal symptoms. ENMT: denies otolaryngeal symptoms. Respiratory: no shortness of breath. Heme/Lymph: denies easy bleeding tendency, denies easy bruising tendency. Psychiatric: no confusion, no anxiety. Genitourinary: mild dysuria, denies hematuria, denies discharge, denies urinary frequency, denies urinary hesitancy, mild nocturia, denies incontinence, denies genital sores, denies decreased libido, and denies erectile dysfunction. Physical Exam Vitals & Measurements HR: 64(Peripheral) BP: 126/78 WT: 126 kg WT: 126.0 kg General Appearance: alert, no distress, well nourished, well developed male. Head: normocephalic . Eyes: normal orbit and globe. ENMT: normal examination of external ears. Chest: Lungs CTA, respirations non labored. Cardiovascular: regular rate and rhythm. Abdomen: soft, non distended, no tenderness, no mass or organomegaly, no hernia. This patient has a protuberant abdomen and is obese. Genitourinary: normal scrotum, normal testes, normal urethra, normal epididymis, normal vas deferens/spermatic cord. Flank Pain: none. Bladder: nonpalpable. Penis: normal shaft, normal glans. There is a significant phimosis. I was unable to retract the foreskin. Prostate: normal prostate, estimated weight 35 gms, no hard nodule observed. Lymph Nodes: unremarkable palpation of the cervical area. Skin: warm, dry, no bruising. Psychiatric: cooperative, affect appropriate for age, normal judgement, euthymic mood. Assessment/Plan Patient is scheduled for circumcision. Procedure, risk, alternatives and potential complications have been discussed with the patient. All of his questions were answered. He was put on an oral antibiotic at his request because of some irritation in the foreskin. A consent has been obtained. 1. Phimosis (N47.1: Phimosis) Pt states he has pins and needles sensation when trying to pull his foreskin back. Pt states he has constant infection and ABX relieve the symptoms for a short period of time. Pt states this has been going on for 5 years. Will schedule Circumcision. The procedure risks, benefits, and details have been discussed with the patient. These include bleeding, infection, potential separation of the skin edges (which will heal in), change in penile sensation which may affect sexual intercourse and erections, as well as the need for additional procedures, among others. Full informed consent has been obtained. Will order General anesthesia. 2. Dysuria (R30.0: Dysuria) When urine is cloudy. 3. Nocturia (R35.1: Nocturia) 6x a night Patient Education Urinary Frequency, Adult Balanitis Ann Garvin, personally scribed for Dr. Duque on 09/04/2021 08:59:28. . Documentation recorded by the scribe, Ann Rudd, accurately reflects the services(s) I performed and decisions made by me. Authenticated by Dr. Duque on 09/04/2021 13:15:09. Problem List/Past Medical History Ongoing No qualifying data Historical No qualifying data Medications glimepiride 2 mg Tab, Oral, Daily Januvia, Oral, Daily Keppra, BID metformin 500 mg ER Tab, Oral, Daily Synthroid 25 mcg(0.025 mg) Tab, Oral, Daily Allergies penicillin (Rash) Family History Congenital heart disease: Father. Diabet (more content not included)... [facility] Comment on above: Result Comment: Elec tronically Signed By: Neto Keith MD, Landen Chapa\.br\Date and Time Signed: 09/04/21 13:15 EST\.br\Electronically Co-Signed By: Ann Rudd MA.br\Date and Time Co-Signed: 09/04/21 09:00 EST Vital Signs Date Time Vital Sign Value Performing Clinician Facility 02-14-2022 15:33-0400 Blood Pressure Location GINA VICTORIA [facility] 02-14-2022 15:33-0400 Diastolic blood pressure 88 mm[Hg] GINA VICTORIA [facility] 02-14-2022 15:33-0400 Heart rate 82 /min GINA VICTORIA [facility] 02-14-2022 15:33-0400 Systolic blood pressure 139 mm[Hg] GINA VICTORIA [facility] 11-22-2021 09:55-0400 Blood Pressure Location Landen Duque Jr. [facility] 11-22-2021 09:55-0400 Body temperature 97.34 [degF] Landen Duque Jr. [facility] 11-22-2021 09:55-0400 BP/Pulse Patient Position Landen Duque Jr. [facility] 11-22-2021 09:55-0400 Diastolic blood pressure 98 mm[Hg] Landen Duque Jr. [facility] 11-22-2021 09:55-0400 Heart rate 78 /min Landen Duque Jr. [facility] 11-22-2021 09:55-0400 Respiratory rate 18 /min Landen Duque Jr. [facility] 11-22-2021 09:55-0400 SaO2% (BldA) [Mass fraction] 98 % Landen Duque Jr. [facility] 11-22-2021 09:55-0400 Systolic blood pressure 156 mm[Hg] Landen Duque Jr. [facility] 11-22-2021 09:15-0400 Blood Pressure Location Landen Duque Jr. [facility] 11-22-2021 09:15-0400 Body temperature 97.34 [degF] Landen Duque Jr. [facility] 11-22-2021 09:15-0400 Diastolic blood pressure 83 mm[Hg] Landen Duque Jr. [facility] 11-22-2021 09:15-0400 Heart rate 73 /min Landen Duque Jr. [facility] 11-22-2021 09:15-0400 Mean blood pressure 104 mm[Hg] Landen Duque Jr. [facility] 11-22-2021 09:15-0400 Respiratory rate 16 /min Landen Duque Jr. [facility] 11-22-2021 09:15-0400 SaO2% (BldA) [Mass fraction] 96 % Landen Duque Jr. [facility] 11-22-2021 09:15-0400 Systolic blood pressure 145 mm[Hg] Landen Duque Jr. [facility] 11-22-2021 09:05-0400 Blood Pressure Location Landen Duque Jr. [facility] 11-22-2021 09:05-0400 Body temperature 97.52 [degF] Landen Duque Jr. [facility] 11-22-2021 09:05-0400 Diastolic blood pressure 81 mm[Hg] Landen Duque Jr. [facility] 11-22-2021 09:05-0400 Heart rate 79 /min Landen Duque Jr. [facility] 11-22-2021 09:05-0400 Respiratory rate 13 /min Landen Duque Jr. [facility] 11-22-2021 09:05-0400 SaO2% (BldA) [Mass fraction] 99 % Landen Duque Jr. [facility] 11-22-2021 09:05-0400 Systolic blood pressure 147 mm[Hg] Landen Duque Jr. [facility] 11-22-2021 08:35-0400 Respiratory rate 12 /min Landen Duque Jr. [facility] 11-22-2021 08:30-0400 Respiratory rate 13 /min Landen Duque Jr. [facility] 11-22-2021 08:25-0400 Respiratory rate 13 /min Landen Duque Jr. [facility] 11-22-2021 06:08-0400 Mean blood pressure 100 mm[Hg] Landen Duque Jr. [facility] 11-22-2021 06:08-0400 Heart rate 78 /min Landen Duque Jr. [facility] 11-22-2021 06:07-0400 BP/Pulse Patient Position Landen Duque Jr. [facility] 11-22-2021 06:07-0400 Mean blood pressure 109 mm[Hg] Landen Duque Jr. [facility] Encounters Encounter Date Encounter Type Care Provider Facility Start: 06-26-2022 Encounter for genera l adult medical examination without abnormal findings DR MONI ESPINO [facility] Start: 06-21-2022 End: 06-22-[address] MONI ESPINO Facility:[facility] Start: 06-21-2022 End: 06-22-2022 Encounter for general adult medical examination without abnormal findings DR MONI ESPINO Facility: Start: 03-11-2022 End: 03-11-2022 Patient encounter procedure Landen Duque Jr. [facility] Start: 02-14-2022 End: 02-14-2022 Patient encounter procedure GIAN VICTORIA [facility] Start: 11-22-2021 End: 11-22-2021 Admission to same day surgery center Landen Duque Jr. [facility] Start: 09-11-2017 End: 09-12-2017 Ambulatory DEFAULT PHYSICIAN Facility:[facility] Procedures Date Procedure Procedure Detail Performing Clinician Start: 06-21-[address] BHAKTI ESPINO Comment on above: Performed By: #### P [facility] #### [facility] [address] [place] [address] Dr. Denise Mason Start: 11-22-2021 Circumcision Landen reaves Jr. Colonoscopy Landen Ng Immunizations Immunization Date Immunization Notes Care Provider [facility] 05-23-2021 influenza virus vaccine, unspecified formulation GINA VICTORIA [facility] 11-06-2020 SARS-CoV-2 mRNA (tozinameran 5y-11y) vaccine GINA VICTORIA [facility] 10-16-2020 SARS-CoV-2 mRNA (tozinameran 5y-11y) vaccine GINA VICTORIA [facility] [place] Payers Date Payer Category Payer Unknown [id number] 1960 Unknown [id number] Unknown Social History Date Type Detail Facility Tobacco Current vaping o r e-cigarette use Smokeless Tobacco Use:. Vaping [facility] Sex Assigned At Male [facility] Functional Status Date Assessment Result Facility 03-11-2022 Functional Status N/A [facility] Step-In 02-14-2022 Functional Status N/A [facility] Hospital Discharge instructions 03-11-2022 Note Date & Type Note Facility 03-11-2022 Hospital Discharg e instructions Patient Education 03/11/2022 11:36:54 Erectile Dysfunction Erectile Dysfunction Erectile dysfunction (ED) is the inability to get or keep an erection in order to have sexual intercourse. Erectile dysfunction may include: Inability to get an erection. Lack of enough hardness of the erection to allow penetration. Loss of the erection before sex is finished. What are the causes? This condition may be caused by: Certain medicines, such as: ?Pain relievers. ?Antihistamines. ?Antidepressants. ?Blood pressure medicines. ?Water pills (diuretics). ?Ulcer medicines. ?Muscle relaxants. ?Drugs. Excessive drinking. Psychological causes, such as: ?Anxiety. ?Depression. ?Sadness. ?Exhaustion. ?Performance fear. ?Stress. Physical causes, such as: ?Artery problems. This may include diabetes, smoking, liver disease, or atherosclerosis. ?High blood pressure. ?Hormonal problems, such as low testosterone. ?Obesity. ?Nerve problems. This may include back or pelvic injuries, diabetes mellitus, multiple sclerosis, or Parkinson disease. What are the signs or symptoms? Symptoms of this condition include: Inability to get an erection. Lack of enough hardness of the erection to allow penetration. Loss of the erection before sex is finished. Normal erections at some times, but with frequent unsatisfactory episodes. Low sexual satisfaction in either partner due to erection problems. A curved penis occurring with erection. The curve may cause pain or the penis may be too curved to allow for intercourse. Never having nighttime erections. How is this diagnosed? This condition is often diagnosed by: Performing a physical exam to find other diseases or specific problems with the penis. Asking you detailed questions about the problem. Performing blood tests to check for diabetes mellitus or to measure hormone levels. Performing other tests to check for underlying health conditions. Performing an ultrasound exam to check for scarring. Performing a test to check blood flow to the penis. Doing a sleep study at home to measure nighttime erections. How is this treated? This condition may be treated by: Medicine taken by mouth to help you achieve an erection (oral medicine). Hormone replacement therapy to replace low testosterone levels. Medicine that is injected into the penis. Your health care provider may instruct you how to give yourself these injections at home. Vacuum pump. This is a pump with a ring on it. The pump and ring are placed on the penis and used to create pressure that helps the penis become erect. Penile implant surgery. In this procedure, you may receive: ?An inflatable implant. This consists of cylinders, a pump, and a reservoir. The cylinders can be inflated with a fluid that helps to create an erection, and they can be deflated after intercourse. ?A semi-rigid implant. This consists of two silicone rubber rods. The rods provide some rigidity. They are also flexible, so the penis can both curve downward in its normal position and become straight for sexual intercourse. Blood vessel surgery, to improve blood flow to the penis. During this procedure, a blood vessel from a different part of the body is placed into the penis to allow blood to flow around (bypass) damaged or blocked blood vessels. Lifestyle changes, such as exercising more, losing weight, and quitting smoking. Follow these instructions at home: Medicines Take zcgk-icv-zdjpqyc and prescription medicines only as told by your health care provider. Do not increase the dosage without first discussing it with your health care provider. If you are using self-injections, perform injections as directed by your health care provider. Make sure to avoid any veins that are on the surface of the penis. After giving an injection, apply pressure to the injection site for 5 minutes. General instructions Exercise regularly, as directed by your health care provider. Work with your health care provider to lose weight, if needed. Do not use any products that contain nicotine or tobacco, such as cigarettes and e-cigarettes. If you need help quitting, ask your health care provider. Before using a vacuum pump, read the instructions that come with the pump and discuss any questions with your health care provider. Keep all follow-up visits as told by your health care provider. This is important. Contact a health care provider if: You feel nauseous. You vomit. Get help right away if: You are taking oral or injectable medicines and you have an erection that lasts longer than 4 hours. If your health care provider is unavailable, go to the nearest emergency room for evaluation. An erection that lasts much longer than 4 hours can result in permanent damage to your penis. You have severe pain in your groin or abdomen. You develop redness or severe swelling of your penis. You have redness spreading up into your groin or lower abdomen. You are unable to urinate. You experience chest pain or a rapid heart beat (palpitations) after taking oral medicines. Summary Erectile dysfunction (ED) is the inability to get or keep an erection during sexual intercourse. This problem can usually be treated successfully. This condition is diagnosed based on a physical exam, your symptoms, and tests to determine the cause. Treatment varies depending on the cause, and may include medicines, hormone therapy, surgery, or vacuum pump. You may need follow-up visits to make sure that you are using your medicines or devices correctly. Get help right away if you are taking or injecting medicines and you have an erection that lasts longer than 4 hours. This information is not intended to replace advice given to you by your health care provider. Make sure you discuss any questions you have with your health care provider. Document Released: 07/18/2001 Document Revised: 07/03/2018 Document Reviewed: 08/06/2017 [employer] Patient Education 2020 [employer]. Follow Up Care 02/14/2022 16:18:15 With:Neto Keith MD, ANUJA Aleman Address: [facility] [address], [place] [address]- When: Unknown [facility] Hospital Discharge instructions 02-14-2022 Note Date & Type Note Facility 02-14-2022 Hospital Discharge instructions Patient Education 02/14/2022 16:03:45 Circumcision Information Circumcision Information Boys are born with a fold of skin that covers the head of the penis (foreskin). This fold of skin is often removed shortly after with a surgery that is called circumcision. A circumcision may be done by health care providers who are involved in care. It may also be done by a specialist who cares for the urinary tract (urologist). Who should be circumcised? The decision to leave the foreskin on or to have it removed is a personal one. It is often based on uatsdin, social, or cultural beliefs. Circumcision is most often done in the first few days of life, but it may also be done later in life. In general: All healthy boys with a normal penis formation can be circumcised in the first few days after . Boys who are born early (prematurely) or who are ill should not be circumcised until they are older and stronger. Boys with certain deformities of the penis or deformities of the opening of the penis (urethra) should not be circumcised. How is circumcision done? The penis and the area around it are cleansed well. An injection is given to numb the area. A numbing cream may be applied to the area. A special clamp or ring is attached to the penis and used to remove the foreskin. The area is then cleansed well again. Medicine and gauze are applied to it. What are the benefits of circumcision? When the foreskin is removed: The head of the penis is easier to wash. This lowers the risk for odors, swelling, and infection. Some men are less likely to: ?Carry the virus that causes genital warts (human papillomavirus or HPV). ?Contract HIV (human immunodeficiency virus). ?Develop cancer of the penis. ?Get urinary infections. ?Develop inflammation of the penis. What are the risks of circumcision? Circumcision is a safe procedure. However, problems may occur, including: Infection. Bleeding. Removal of too much or too little foreskin. This affects the appearance of the penis. Irritation and narrowing of the urinary opening. This is usually temporary. Scarring of the penis. This may affect the way the penis functions. Summary Boys are born with a fold of skin that covers the head of the penis (foreskin). This fold of skin is often removed shortly after with a surgery that is called circumcision. When the foreskin is removed, the head of the penis is easier to wash and keep clean. Some men who are circumcised are less likely to carry viruses, get urinary infections, or develop cancer of the penis. Circumcision is a safe procedure. However, problems may occur, including infection, bleeding, scarring, and irritation and narrowing of the opening of the penis. This information is not intended to replace advice given to you by your health care provider. Make sure you discuss any questions you have with your health care provider. Document Released: 07/18/2001 Document Revised: 01/04/2019 Document Reviewed: 01/04/2019 [employer] Patient Education 2020 [employer]. Follow Up Care 12/13/2021 14:42:17 With:GINA VICTORIA PA-C, URL Address: [address] [place] [phone] When:03/17/2022 [facility] Evaluation + Plan note 11-22-2021 Note Date & Type Note Facility 11-22-2021 Evaluation + Plan note Extrac gómez from: Title:ANES POSTOP MAC/GEN NOTE Author:Yassine Marquez JR Date:11/22/21 Plan Transfer/ Discharge: Patient can be discharged from PACU when criteria met. Condition good. Extracted from: Title:ANES PREOP GEN ADULT NOTE Author:Yassine Plaza JR, DO Date:11/22/21 Plan [place] [employer]esthesiologists (ASA) physical status classification: Class III. Anesthetic Preoperative Plan Anesthesia: General. . Anesthetic plan, risks, benefits, and alternatives discussed with the patient and/or family. Pt. and/or family present and agree to proceed as planned.. Discussed the importance of abstaining from tobacco products, and offered counseling if desired. [facility] Hospital Discharge instructions 11-22-2021 Note Date & Type Note Facility 11-22-2021 Hospital Discharg e instructions Patient Education 11/22/2021 09:07:42 Post Op Patient Instructions - FT (Custom) Follow Up Care 11/06/2021 15:37:23 With:GINA VICTORIA Address: [address] [place] [id number] Business (1) When:2 to 4 weeks [facility] History and physical note 11-07-2021 Note Date & Type Note Facility 11-07-2021 Note [id number] [facility] Evaluation + Plan note Note Date & Type Note Facility Evaluation + Plan note Future Appointments Appointment Date:03/11/2022 11:15:00 AM Scheduled Provider:Landen Duque Jr., MD Location:[facility] Appointment Type:URO Office Visit [facility] Hospital course Narrative Note Date & Type Note Facility Hospital course Narrative No data available for this section [facility] Progress note Note Date & Type Note Facility Progress note No data available for this section [facility] Summary Purpose Family History No Family History Records FoundNo Family History Records FoundNo Family History Records Found Advance Directives No Advanced Directives Records FoundNo Advanced Directives Records FoundNo Advanced Directives Records Found Additional Source Comments (unrecognized sect ion and content) No Status Records FoundNo Status Records FoundNo Status Records Found INFORMATION SOURCE (unrecogn ized section and content) DATE CREATED AUTHOR 01/22/2018 [facility] DATE CREATED AUTHOR AUTHOR'S ORGANIZ ATION 03/12/2022 [facility] DATE CREATED AUTHOR AUTHOR'S ORGANIZ ATION 06/26/2022 [facility] Care Team (unrecognized sect ion and content) Personnel Name: Moni Espino MD Address: [address] [place] [address] Personnel Name: Moni Espino MD Address: [address] [place] [address] FOR RECORDS PERTAINING TO PATIENTS WHO ARE OR HAVE BEEN ENROLLED IN A CHEMICAL DEPENDENCY/SUBSTANCEABUSE PROGRAM, SOME INFORMATION MAY BE OMITTED. This clinical summary was aggregated from multiple sources. Caution should be exercised in using it in the provision of clinical care. This summary normalizes information from multiple sources, and as a consequence, information in this document may materially change the coding, format and clinical context of patient data. In addition, data may be omitted in some cases. CLINICAL DECISIONS SHOULD BE BASED ON THE PRIMARY CLINICAL RECORDS. [facility] [employer] [facility] provides no warranty or guarantee of the accuracy or completeness of information in this document.
[2024-05-29 07:08] LABS: Basophils Percent Auto 0.6 % (0.2-2.0); Eosinophils Absolute Auto 0.2 10^3/uL (0.0-0.7); Eosinophils Percent Auto 3.4 % (0.9-7.0); Hematocrit 49.3 % (42.0-54.0); Hemoglobin 16.4 g/dL (14.0-18.0); Immature Granulocytes Abs Auto 0.02 10^3/uL (0.00-0.03); Immature Granulocytes Pct Auto 0.3 % (0.0-0.5); Lymphocytes Absolute Auto 1.7 10^3/uL (1.2-3.8); Lymphocytes Percent Auto 26.9 % (20.5-60.0); Mean Corpuscular HGB Conc 33.3 g/dL (29.9-35.2); Mean Corpuscular Hemoglobin 28.4 pg (25.9-34.0); Mean Corpuscular Volume 85.4 fL (80.0-94.0); Mean Platelet Volume 10.8 fL (9.5-13.5); Monocytes Absolute Auto 0.7 10^3/uL (0.3-0.8); Monocytes Percent Auto 10.6 % (1.7-12.0); Neutrophils Absolute Auto 3.7 10^3/uL (1.4-6.5); Neutrophils Percent Auto 58.2 % (43.0-75.0); Platelet Count 141 10^3/uL (150-450); Red Blood Count 5.77 10^6/uL (4.70-6.10); Red Cell Distribution Width 13.3 % (11.0-15.0); White Blood Count 6.4 10^3/uL (4.0-11.0)
[2024-05-29 08:53] LABS: Estimated Average Glucose 180 mg/dL; Glycohemoglobin A1C 7.9 % (4.5-6.2)
[2024-05-29 09:04] LABS: Alanine Aminotransferase 38 U/L (16-63); Albumin Globulin Ratio 0.9; Albumin Level 3.6 g/dL (3.4-5.0); Alkaline Phosphatase 68 U/L (46-116); Anion Gap 15.1; Aspartate Amino Transferase 21 U/L (15-37); BUN Creatinine Ratio 19.1; Bilirubin Total 0.7 mg/dL (0.2-1.0); Carbon Dioxide 26.8 mmol/L (21.0-32.0); Chloride 101 mmol/L (98-107); Chol HDL Ratio 3.9; Cholesterol 162 mg/dL (<=200); Estimated GFR (African America >60 (>=60 mL/min/1.73m^2); Estimated GFR (Non-African Ame >60 (>=60 mL/min/1.73m^2); Free T3 2.84 pg/mL (2.18-3.98); Globulin 3.8 g/dL; Glucose 165 mg/dL (74-106); HDL Cholesterol 42 mg/dL (40-60); Potassium 3.9 mmol/L (3.5-5.1); Sodium 139 mmol/L (136-145); Thyroid Stimulating Hormone 0.181 uIU/mL (0.358-3.740); Total Protein 7.4 g/dL (6.4-8.2); Triglycerides 265 mg/dL (<=150)
== END 2024-05-29 06:33 | disposition home or self-care (01) ==
LOC: LAB 06:32
PROVIDERS: PCP Family Medicine; Visit Provider Family Medicine
DX: Z00.00 Encounter for general adult medical examination without abnormal findings (principal)
CPT/HCPCS: 36415; 80053; 80061; 83036; 84436; 84443; 84481; 85025; G0103

== ENCOUNTER 2025-06-25 06:19 | Outpatient (OUT) | payer BC, SELFPAY ==
--- OUTSIDE RECORDS SUMMARY | 2025-06-16 11:30 | XMS_ITS ---
Author Organization [facility] [place] Address [address] [place] [address] Care Team Providers Care Alarm Field Technician Name Role Phone Simón Espino Primary Care Provider Allergies Allergen (clinical drug ingredient) Drug/Non Drug Allergy documented on EMR Reaction Allergy Type Onset Date Status PenicillinUnknownDrug AllergyActive REASON FOR VISIT yearly wellness exam- due for yearly labs as well, Needs refill of meds to [facility]- 90 day supply, Discuss DCing Tamsulosin and Oxcarbazepine Medications Medication SIG (Take, Route, Frequency, Duration) Notes Start Date End Date Status Simvastatin 20 MG TAKE 1 TABLET EVERY EVENING On ce a day; Duration: 90 days ActiveZovirax 5 %1 application Externally Five times a day; Duration: 4 days 5ActivevalACYclovir HCl 1 GM1 tablet Orally tid; Duration: 10 days 5ActiveVerapamil HCl ER 240 MG1 tablet Orally bid; Duration: 30 days ActivePioglitazone HCl 45 MGTAKE 1 TABLET ONCE DAILY; Duration: 90ActiveOzempic (0.25 or 0.5 MG/DOSE) 2 MG/3ML0.5mg Subcutaneous once weekly; Duration: 28 days 5ActivePantoprazole Sodium 40 MG1 tablet 1/2 to 1 hour before morning meal Orally Once a day; Duration: 90 daysActiveMetoprolol Tartrate 100 MG1 tablet with food Orally Twice a day; Duration: 90 daysActivemetFORMIN HCl 500 MG TAKE 1 TABLET ONCE DAILY WITH A MEAL; Duration: 90 daysActiveGlimepiride 4 MG TAKE 2 TABLETS Orally Once a day; Duration: 90 daysActiveLevothyroxine Sodium 175 MCGTAKE 1 TABLET BY MOUTH EVERY DAY IN THE MORNING ON AN EMPTY STOMACH FOR 30 DAYS; Duration: 90 daysActiveJardiance 25 MGTAKE 1 TABLET ONCE DAILY; Duration: 90 daysActivelevETIRAcetam 750 MG1 tablet Orally twice a day; Duration: 90 daysActiveEliquis 5 MGTake 1 tablet Orally twice daily; Duration: 90 days05/12/2025tive Social History Tobacco Use: Social History Observation Description Date Details (start date - stop date) Former Smoker NA - 09/03/2014 Tobacco Use/Smoking Question Answer Notes Patient is a former smoker When did you stop smoking?09/03/2014How long has it been since you last smoked? 5-10 years Vital Signs Weight 267.8 lbs 06/16/2025 Height 64 in 06/16/2025 Blood pressure systolic 142 mm Hg 06/16/20 25 Blood pressure diastolic 84 mm Hg 025 BMI 45.96 kg/m2 06/16/2025 Encounters Encounter Location Date Provider Diagnosis [facility] [address] [place] [address] 06/16/2025 Simón Hoy Pure hypercholestero lemia E78.00 ; Hypertension I10 ; Well adult Z00.00 ; Hypothyroidism E03.9 and Atrial flutter I48.92 Assessments Encounter Date Diagnosis (ICD Code) Assessment Notes Treatment Notes Treatment Clinical Notes Section Notes 06/16/2025 Pure hypercholesterolemia (ICD-1 0 - E78.00) 06/16/2025Hypertension (ICD-10 - I10)06/16/2025Well adult (ICD-10 - Z00.00) 06/16/2025Hypothyroidism (ICD-10 - E03.9)06/16/2025trial flutter (ICD-10 - I48.92) Plan Of Treatment Medication Medication Name Sig Start Date Stop Date Notes Tamsulosin HCl 0.4 MG TAKE 1 CAPSULE ONCE DAILY OXcarbazepine 150 MGTAKE 1 TABLET TWICE A DAYPending Test Test Name Order Date HEMOGLOBIN A1C (GLYCO) 06/16/2025 LIPID PANEL (CHOL/TRIG/HDL/LDL) 06/16/20 25 URIC ACID 06/16/2025 THYROID PANEL (T4/TSH/FREE T3) PSA, SCREENING 06/16/2025 CMP (COMP MET DOMINIQUE) w/eGFR CKD-EPI 2024 CBC WITH DIFF 06/16/2025 Progress Notes * Marco Antonio OLGUINyDOB:1970 ( 54 yo M)Acc No.[id number]:06/16/2025 Progress Note Patient: Cornelius HAGAN :?Edgard Espino ([facility]), MDDOB:1970???Age: 54 Y???Sex:MaleDate:06/16/2025Phone:[phone]:[address] [facility]IjeomaSAMAR[facility]ITAL[address]Yppbw In:04:14 PM ESTCheck Out:04:59 PM EST Subjective: * Chief Complaints: * Y early wellness exam- due for yearly labs as wellNeeds refill of meds to [facility]- 90 day supplyDiscuss DCing Tamsulosin and Oxcarbazepine * HPI: ???General:? DM - 160's - not goo d with diet HTn - stabel here GERD. * ROS: ???EENT:?hearing changes?denies.?visual changes?denies. non-healing mouth sores?denies.?swollen glands or neck lumps?denies.?hoarseness?denies.?sore throat?denies.?difficulty swallowing?denies.?nose bleeds?denies.?nasal congestion?denies.?ear ache?denies.?ear discharge denies.?ringing in ears?denies.?light sensitivity?denies.?eye pain?denies.?blurring?denies.?eye irritation?denies.?double vision?denies. vision loss?denies.?General/Constitutional:?Sweats:?Denies.?Fatigue?denies.?Sleep proble ms?denies.?Anorexia?denies.?Malaise?denies.?Weight loss?denies. Fatigue or Weakness?denies.?Fever or Chills?denies.?Cardiovascular:?Shortness of Breath w/lying flat?denies.?Lightheadedne ss/dizziness?denies.?Chest tightness/ heavy pressure?denies.?Swelling of legs, a nkles, or feet?denies.?Waking up with shortness of breath?denies.?Chest pain&#16 0;denies.?Palpitations?denies.?Weight gain?denies.?Respiratory:?Chronic or frequent cough?denies.?Coughing up blood&#1 60;denies.?Difficulty breathing?denies.?Productive cough?denies.?Snoring&#1 60;denies.?Shortness of breath that awakens from sleep (PND)?denies.?Chest pain? denies.?Sputum production?denies.?Wheezing?denies.?Musculoskeletal:?Joint pain?denies.?Joint Fluid?denies.?Backpain?denies.?Knee pain?denies.?Neck pain?denies.?Joint Stiffness?denies.?Muscle cramps?denies.?Weakness of muscles?denies.?Arthritis?denies.?Muscle aches?denies.?Pain in shoulder(s)?denies.?Swollen joints?denies.? * Active Problem List E78.00 Pure hypercholestero lemia Modified On:05/26/2023/U Status:umuooeontY21.2Palpitations Modified On:05/26/2023/U Status:ezyscbkliC49.90Meningoencephalitis Modified On:05/26/2023/U Status:atptpqhbhJ66Puarmlc Modified On:05/26/2023/U Status:rmjntuumrD52.9Diabetes Modified On:05/29/2023/U Status:slhaesdjfZ30Cgqkqxwlpjpy Modified On:05/26/2023/U Status:klluyukjvI72.9Hypothyroidism Modified On:06/02/2023/U Status:crjmkxrodN13.7Ventricular hypertrophy Modified On:05/26/2023/U Status:fcfmbiabmI92.9Pericardial effusion Modified On:05/26/2023/U Status:ohbecwweaJ58.00Well adult Modified On:05/24/2024/U Status:hypffcvuzL38.00Insomnia Modified On:09/09/2024/U Status:fbrdtxewaF33.92Atrial flutter Modified On:02/10/2025U Status:ihfabofvbJ28.9Shingles Modified On:04/25/2025U Status:confirmed * Medical History: * Surgical History: T onsillectomy * Hospitalization/Major Diagno stic Procedure: D enies Past Hospitalization * Family History: F ather: , diagnosed with Diabetes, Heart Disease, Hypertension. M other: , diagnosed with Diabetes, Hypertension. B rother(s): alive, diagnosed with Diabetes, Hypertension. S ister(s): alive, diagnosed with Diabetes, Hypertension. S on(s): alive. 3 brother(s) , 2 sister(s) . 1 son(s) - healthy. . * Social History: ???Tobacco Use:?Tobacco Use/Smoking?Patient is a?former smoker ?When did you stop smoking??09/03/2014 ?How long has it been since you last smoked? 5-10 years * Medications: T akingEliquis(Apixaban) 5 MG Tablet Take 1 tablet Orally twice daily Glimepiride 4 MG Tablet TAKE 2 TABLETS Orally Once a day Jardiance(Empagliflozin) 25 MG Tablet TAKE 1 TABLET ONCE DAILY levETIRAcetam 750 MG Tablet 1 tablet Orally twice a day Levothyroxine Sodium 175 MCG Tablet TAKE 1 TABLET BY MOUTH EVERY DAY IN THE MORNING ON AN EMPTY STOMACH FOR 30 DAYS metFORMIN HCl 500 MG Tablet TAKE 1 TABLET ONCE DAILY WITH A MEAL Metoprolol Tartrate 100 MG Tablet 1 tablet with food Orally Twice a day OXcarbazepine 150 MG Tablet TAKE 1 TABLET TWICE A DAY Ozempic (0.25 or 0.5 MG/DOSE)(Semaglutide(0.25 or 0.5MG/DOS)) 2 MG/3ML Solution Pen-injector 0.5mg Subcutaneous once weekly Pantoprazole Sodium 40 MG Tablet Delayed Release 1 tablet 1/2 to 1 hour before morning meal Orally Once a day Pioglitazone HCl 45 MG Tablet TAKE 1 TABLET ONCE DAILY Simvastatin 20 MG Tablet TAKE 1 TABLET EVERY EVENING Once a day Tamsulosin HCl 0.4 MG Capsule TAKE 1 CAPSULE ONCE DAILY valACYclovir HCl 1 GM Tablet 1 tablet Orally tid Verapamil HCl ER 240 MG Capsule Extended Release 24 Hour 1 tablet Orally bid Zovirax(Acyclovir) 5 % Cream 1 application Externally Five times a day Taking Eliquis(Apixaban) 5 MG Tablet Take 1 tablet Orally twice daily Taking Glimepiride 4 MG Tablet TAKE 2 TABLETS Orally Once a day Taking Jardiance(Empagliflozin) 25 MG Tablet TAKE 1 TABLET ONCE DAILY Taking levETIRAcetam 750 MG Tablet 1 tablet Orally twice a day Taking Levothyroxine Sodium 175 MCG Tablet TAKE 1 TABLET BY MOUTH EVERY DAY IN THE MORNING ON AN EMPTY STOMACH FOR 30 DAYS Taking metFORMIN HCl 500 MG Tablet TAKE 1 TABLET ONCE DAILY WITH A MEAL Taking Metoprolol Tartrate 100 MG Tablet 1 tablet with food Orally Twice a day Taking OXcarbazepine 150 MG Tablet TAKE 1 TABLET TWICE A DAY Taking Ozempic (0.25 or 0.5 MG/DOSE)(Semaglutide(0.25 or 0.5MG/DOS)) 2 MG/3ML Solution Pen-injector 0.5mg Subcutaneous once weekly Taking Pantoprazole Sodium 40 MG Tablet Delayed Release 1 tablet 1/2 to 1 hour before morning meal Orally Once a day Taking Pioglitazone HCl 45 MG Tablet TAKE 1 TABLET ONCE DAILY Taking Simvastatin 20 MG Tablet TAKE 1 TABLET EVERY EVENING Once a day Taking Tamsulosin HCl 0.4 MG Capsule TAKE 1 CAPSULE ONCE DAILY Taking valACYclovir HCl 1 GM Tablet 1 tablet Orally tid Taking Verapamil HCl ER 240 MG Capsule Extended Release 24 Hour 1 tablet Orally bid Taking Zovirax(Acyclovir) 5 % Cream 1 application Externally Five times a day DiscontinuedGabapentin 300 MG Capsule 1 capsule Orally qhs Medication List reviewed and reconciled with the patientDiscontinued Gabapentin 300 MG Capsule 1 capsule Orally qhs Medication List reviewed and reconciled with the patient * Allergies: P enicillin: Unknown - Allergyno[Allergies Verified] Objective: * Vitals: W t:267.8lbs, Ht: 64 in, BP:142/84mm Hg, BMI:45.96Index, Ht-cm: 162.56 cm, Wt-k.47 kg. * Examination: ???Physical Exam: ?GENERAL:?well developed, well nourished, in no acute distress.?HEAD:?normocephalic/atraumatic.?EYES:?pupils equal, round and reactive to light, conjunctivae and sclerae normal.?EARS:?no deformity or lesion of external ear, canals and TM appear normal bilaterally, TM's intact, not inflamed with normal light reflex, hearing grossly normal to conversational speech.?NOSE:?no deformity, discharge, inflammation, or lesions. ?MOUTH:?mucous membranes moist, normal oropharynx and posterior pharynx without lesions or exudates, tongue normal, dentition normal.?NECK:?neck supple, no masses or palpable cervical nodes, trachea midline, thyroid without nodules, masses, tenderness, or enlargement.?CHEST:?no chest wall deformity, no chest wall tenderness. ?LUNGS:?normal respiratory effort and clear to auscultation, no wheezes, rales, or rhonchi, good air exchange.?CARDIO:?regular rate and rhythm, normal S1 and S2, nor murmur, rub, or gallop.?PULSES:?normal capillary refill.?ABDOMEN:?soft, non-distended, non-tender, no masses.?MUSCULOSKELETAL:?no deformity or scoliosis noted, normal range of motion, joints normal, no erythema, edema, effusion, or ecchymosis.?EXTREMITY:?no clubbing, cyanosis, edema, or deformity withnormal ROM in both upper and lower bilateral extremities.?NEUROLOGIC:?grossly normal.?SKIN:?no rashes, ulcerations, or suspicious lesions.?LYMPH NODES:?no cervical adenopathy, nodes normal.?MENTAL STATUS:?alert and oriented x3, normal mood and affect.? Assessment: * Assessment: 1.?Pure hypercholesterolemia - E78.00 (Primary)???2.?Hypertension - I10&#16 0;??3.?Well adult - Z00.00???4.?Hypothyroidism - E03.9? ?5.?Atrial flutter - I48.92??? Plan: * Treatment: Stop OXcarbazepine Tablet, 150 MG, TAKE 1 TABLET TWICE A DAY;?Stop Tamsulosin HCl Capsule, 0.4MG, TAKE 1 CAPSULE ONCE DAILY.??2.?Well adult?LAB: HEMOGLOBIN A1C (GLYCO) ?LAB: LIPID PANEL (CHOL/TRIG/HDL/LDL) ?LAB: URIC ACID ?LAB: THYROID PANEL (T4/TSH/FREE T3) ?LAB: PSA, SCREENING ?LAB: CMP (COMP MET DOMINIQUE) w/eGFR CKD-EPI ?LAB: CBC WITH DIFF * Procedure Codes: * Preventive Medicine: ??Screenings/Counseling:?BMI ACTION PLAN?Above Normal BMI Follow-up?Dietary management education, guidance, and counseling * * Sign off status: CompletedVisit Status:?CHK (Check Out) true * Provider: Mónica Espino ([facility])MD Date: 1 08/16/2024 Generated for Printing/Faxing/eTransmitting on:?06/25/2025 06:24 AM EST History and Physical Notes * HPI (History of Present Illness) CategorySub-CategoryDetailNotesCategory NotesGeneral DM - 160's - not goo d with diet HTn - stabel here GERD Examination CategorySub-CategoryDetailNotesCategory NotesPhysical ExamGENERAL:well developed, well nourished, in no acute distressHEAD:normocephalic/atraumatic EYES:pupils equal, round and reactive to light, conjunctivae and sclerae normal EARS:no deformity or lesion of external ear, canals and TM appear normal bilaterally, TM's intact, not inflamed with normal light reflex, hearing grossly normal to conversational speechNOSE:no deformity, discharge, inflammation, or lesionsMOUTH:mucous membranes moist, normal oropharynx and posterior pharynx without lesions or exudates, tonguenormal, dentition normalNECK:neck supple, no masses or palpable cervical nodes, trachea midline, thyroid without nodules, masses, tenderness, or enlargementCHEST:no chest wall deformity, no chest wall tendernessLUNGS:normal respiratory effort and clear to auscultation, no wheezes, rales, or rhonchi, good air exchangeCARDIO:regular rate and rhythm, normal S1 and S2, nor murmur, rub, or gallopPULSES:normal capillary refillABDOMEN:soft, non-distended, non-tender, no massesRECTAL:MUSCULOSKELETAL:no deformity or scoliosis noted, normal range of motion, joints normal, no erythema, edema, effusion, or ecchymosisEXTREMITY:no clubbing, cyanosis, edema, or deformity with normal ROM in both upper and lower bilateral extremitiesNEUROLOGIC:grossly normalSKIN:no rashes, ulcerations, or suspicious lesionsLYMPH NODES:no cervical adenopathy, nodes normalMENTAL STATUS:alert and oriented x3, normal mood and affect
--- OUTSIDE RECORDS SUMMARY | 2025-06-25 06:23 | XMS_ITS | CCD ---
Author Organization [facility] Inform ion Partnership [facility] Care Team Providers Care Manager Stone Name Role Phone PHYSICIAN, DEFAULT Unavailable Unavailable PHYSICIAN, DEFAULT Unavailable Unavailable MONI ESPINO Unavailable Unavailable Moni Espino Primary Care Physician DR MONI ESPINO Admitting Unavailable DR MONI ESPINO Attending Unavailable DR MONI ESPINO Primary Care Unavailable DR MONI ESPINO Consulting Unavailable Allergies Allergy ClassificationReported Allergen(s)Allergy TypeDate of OnsetReaction(s) Facility (4 sources)Penicillin; Translations: [penicillin]Drug AllergyEruption of skin (disorder)[facility] Medications Current Medications MedicationDrug Class(es)DatesSig (Normalized)Sig (Original)acetaminophen 325 mg / oxyCODONE hydrochloride 5 mg oral tablet (1 source)Opioid AgonistStart: 11-22-2021 End: 46-19-1647Udavizxr 5 mg-325 mg oral tablet 1 tab(s), Oral, q6hr Pain 8-10, 20 tab(s), Refill(s) 0, [id number], 162, cm, 11/19/21 6:31:00 EDT, Height/Length Dosing, 123.5, kg, 11/19/21 6:31:00 EDT, Weight Dosing Start Date: 11/22/21 Stop Date: 11/27/21 Status: Orderedcephalexin 500 mg oral capsule (1 source)Cephalosporin AntibacterialStart: 73-58-3316tgzq 1 capsule by mouth every twelve hourscephalexin 500 mg Cap 500 mg = 1 cap(s), Oral, q12hr, Refills(s) 0, Infection or prophylaxis for antibiotics Start Date: 11/16/21 Status: Ordereddoxycycline hyclate 100 mg oral capsule (1 source)Tetracycline-class DrugStart: 49-93-1324gcgx 1 capsule by mouth twice dailydoxycycline hyclate 100 mg Cap 100 mg = 1 cap(s), Oral, BID, # 10 tab(s), Refills(s) 0, Pharmacy: [facility]/pharmacy #[id number], 162, cm, 11/19/21 6:31:00 EDT, Height/Length Dosing, 123.5, kg, 11/19/21 6:31:00 EDT, Weight Dosing Start Date: 11/22/21 Status: Orderedempagliflozin 25 mg oral tablet (3 sources)Sodium-Glucose Cotransporter 2 InhibitorStart: 61-90-2924oirf 1 tablet by mouth once daily in the morningJardiance 25 mg oral tablet 25 mg = 1 tab(s), Oral, qAM, Refills(s) 0, Blood glucose Start Date: 11/16/21 Status: Orderedfenofibrate 145 mg oral tablet (3 sources)Peroxisome Proliferator Receptor alpha AgonistStart: 80-33-8630yrbx 1 tablet by mouth once dailyfenofibrate 145 mg Tab 145 mg = 1 tab(s), Oral, Daily, Refills(s) 0, High cholesterol Start Date: 11/16/21 Status: Ordered fluconazole 100 mg oral tablet (1 source)Azole AntifungalStart: 02-14-2022 End: 81-46-0022rsqs 1 tablet by mouth once dailyDiflucan 100 mg Tab 100 mg = 1 tab(s), Oral, Daily, X 7 day(s), # 7 tab(s), Refills(s) 0, Pharmacy:[facility]/pharmacy #[id number], 163, cm, 02/14/22 15:35:00 EDT, Height/Length Dosing, 126, kg, 02/14/22 15:35:00 EDT, Weight Dosing Start Date: 02/14/22 Stop Date: 02/21/22 Status: Orderedglimepiride 4 mg oral tablet (3 sources)SulfonylureaStart: 17-17-8470nmpl 1 tablet by mouth twice daily glimepiride 4 mg Tab 4 mg = 1 tab(s), Oral, BID, Refills(s) 0, Blood glucose Start Date: 11/16/21 Status: OrderedlevETIRAcetam 750 mg oral tablet (3 sources)Start: 40-91-7606okgd 750 mg by mouth twice dailyKeppra 750 mg, Oral, BID, Refills(s) 0, Other (see comment) Start Date: 09/04/21 Status: Ordered levothyroxine sodium 0.2 mg oral tablet (3 sources)l-ThyroxineStart: 08-81-2982hzaj 1 tablet by mouth once daily Synthroid 200 mcg (0.2 mg) Tab 200 mcg = 1 tab(s), Oral, Daily, Refills(s) 0, Thyroid Start Date: 11/16/21 Status: OrderedStart: 23-61-1686ghly 1 tablet by mouth once dailySynthroid 200 mcg (0.2 mg) Tab 200 mcg = 1 tab(s), Oral, Daily, Refills(s) 0, Thyroid Start Date: 11/16/21 Status: OrderedmetFORMIN hydrochloride 500 mg oral tablet (3 sources)BiguanideStart: 96-98-5428gwdq 1 tablet by mouth twice dailymetformin 500 mg oral tablet 500 mg = 1 tab(s), Oral, BID, Refills(s) 0, Blood glucose Start Date: 11/16/21 Status: Orderedmiconazole nitrate 0.02 mg/mg topical ointment (2 sources)Azole AntifungalStart: 69-04-1627iugwb 15 g topically twice daily miconazole topical 2% ointment See Instructions, 15 gm, Refill(s) 0, apply to the effected area BIDfor 2 weeks, [facility]/pharmacy #[id number], 163, cm, 02/14/22 15:35:00 EDT, Height/Length Dosing, 126, kg, 02/14/22 15:35:00 EDT, Weight Dosing Start Date: 02/14/22 Status: OrderedOXcarbazepine 150 mg oral tablet (3 sources)Anti-epileptic AgentStart: 56-01-9506kwbn 1 tablet by mouth twice dailyoxcarbazepine 150 mg Tab 150 mg = 1 tab(s), Oral, BID, Refills(s) 0, Seizure Start Date: 11/16/21 Status: Orderedpioglitazone 45 mg oral tablet (3 sources)Peroxisome Proliferator Receptor alpha Agonist, Peroxisome Proliferator Receptor gamma Agonist, ThiazolidinedioneStart: 95-94-3387nuxy 1 tablet by mouth once dailypioglitazone 45 mg Tab 45 mg = 1 tab(s), Oral, Daily, Refills(s) 0, Blood glucose Start Date: 11/16/21 Status: Orderedsildenafil 100 mg oral tablet (1 source)Phosphodiesterase 5 InhibitorStart: 34-77-2098olqccqkfpb 100 mg Tab 100 mg = 1 tab(s), Oral, As Directed, Take 30-45 minutes prior to sexual activ ity., # 30 tab(s), Refills(s) 1, Pharmacy: [facility]/pharmacy #[id number], 163, cm, 03/11/22 11:25:00 EDT, Height/Length Dosing, 126, kg, 03/11/22 11:25:00 EDT, Weight Dosing Start Date: 03/11/22 Status: OrderedSITagliptin 100 mg oral tablet (3 sources)Dipeptidyl Peptidase 4 InhibitorStart: 18-08-4332ajgh 1 tablet by mouth at bedtimeJanuvia 100 mg Tab 100 mg = 1 tab(s), Oral, Bedtime, Refills(s) 0, Blood glucose Start Date: 11/16/21 Status: Orderedtamsulosin hydrochloride 0.4 mg oral capsule (2 sources)alpha-Adrenergic BlockerStart: 41-58-6018xhll 1 capsule by mouth twice dailytamsulosin 0.4 mg Cap 0.4 mg = 1 cap(s), Oral, BID, # 60 cap(s), Refills(s) 11, Pharmacy: [facility]/pharmacy #[id number], 163, cm, 02/14/22 15:35:00 EDT, Height/Length Dosing, 126, kg, 02/14/22 15:35:00 EDT, Weight Dosing Start Date: 02/14/22 Status: Orderedverapamil hydrochloride 180 mg extended release oral tablet (3 sources)Calcium Channel BlockerStart: 78-08-0481eftc 1 tablet by mouth at bedtimeverapamil 180 mg ER Tab 180 mg = 1 tab(s), Oral, Bedtime, Refills(s) 0, High blood pressure Start Date: 11/16/21 Status: Ordered Problems Active Problems Problem ClassificationProblemDateDocumented DateEpisodic/ChronicDiabetes mellitus without complication (3 sources)Diabetes fjttvyfp27-36-2348VmnvfucGeyltopmw of lipid metabolism (3 sources)Voakgqtumeaxjlrwgklz62-59-5393HxtrvsqMrvjvrbe; convulsions (3 sources)Ktufkcw31-11-4906ClckupecTymyrvpmq hypertension (3 sources)Hypertensive kehmpvap80-09-5601ItsgcjoBvykhqtxkfech symptoms and ill- defined conditions (4 sources)Dysuria; Translations: [Nocturia]41-75-7376CfbdhmmcVrjozthakhb of prostate (4 sources)Benign prostatic hypertrophy with outflow obstruction; Translations: [Benign prostatic hyperplasia with lower urinary tract symptoms]Onset: 64-92-6860XscffwlDmjqrpnplekwo mental health disorders (1 source)Male erectile disorder; Translations: [Erectile dysfunction]Onset: 54-32-2393WevkmbnHnhbk male genital disorders (1 source)Rixrnrqam49-49-1539DlpuksrUpdue male genital disorders (5 sources)Phimosis; Translations: [Phimosis]Onset: 153206-45-0585Neiotmbu Other nutritional; endocrine; and metabolic disorders (2 sources)Body mass index 40+ - severely mbaou88-26-7761ShyijpdNedea screening for suspected conditions (not mental disorders or infectious disease) (1 source)Encounter for screening for malignant neoplasm of prostate; Translations: [ENC SCREEN MALIG NEOPLASM PROSTATE]Onset: 80-36-2320Pwxdnpqv Residual codes; unclassified (3 sources)At risk of qthazun44-13-2287Qbpvlqse Past or Other Problems Problem ClassificationProblemDateDocumented DateEpisodic/ChronicOther injuries and conditions due to external causes (3 sources)H/O: head injuryOnset: 761266-83-9339QmnmznqjNlulake on above: fell off a ladder Results Test NameValueInterpretationReference RangeFacilityINSULINon 71-93-0094Bovjkli 8.5 uIU/mLNormal2.6-24.9The [facility] SystemComment on above:Performed By: #### INSULIN #### [facility] [address] [place] [address] Dr. Denise Huerta AUTO DIFFon 24-01-8561CYIH #0.1 103/ulNormal0.0-0.1The [facility] SystemComment on above:Performed By: #### CBC #### [facility] [address] [address] [address] Denise MasonBasophils/100 WBC (Bld)1.0 %Normal0.2-2.0The [facility] Comment on above:Performed By: #### CBC #### [facility] [address] [place] [address] Dr. Denise Burks #0.3 103/ulNormal0.0-0.7The [facility] SystemComment on above: Performed By: #### CBC #### [facility] [address] [place] [address] Dr. Denise Steinosinophils/100 WBC (Bld)3.0 %Normal0.9-7.0[facility] Comment on above:Performed By: #### CBC #### [facility] [address] [place] [address] Dr. Denise Steinrythrocyte distribution width (RBC) [Ratio]14.2 %Gxofly94.0-15.0 The [facility] SystemComment on above:Performed By: #### CBC #### [facility] [address] [place] [address] Dr. Denise MasonHematocrit (Bld) [Volume fraction]50.3 %Bjkfzg71.0-54.0The [facility] SystemComment on above:Performed By: #### CBC #### [facility] [address] [place] [address] Dr. Denise MasonHemoglobin (Bld) [Mass/Vol]16.3 g/jFLypevj50.0-18.0The [facility] SystemComment on above:Performed By: #### CBC #### [facility] [address] [place] [address] Dr. Denise Thurston #0.05 10e3/ulCritically high0.00-0.03The [facility] Comment on above:Performed By: #### CBC #### [facility] [address] [place] [address] Dr. Denise Thurston %0.6 %Critically high0.0-0.5The [facility]eria HospitalComment on above:Performed By: #### CBC #### [facility] [address] [address] [address] Denise Tracey #2.4 103/ulNormal1.2-3.8The [facility] SystemComfresenius [facility] on above:Performed By: #### CBC #### [facility] [address] [address] [address] Denise Carrollhocytes/100 WBC (Bld)29.0 %Mbcpzs69.5-60.0The [facility] SystemComment on above:Performed By: #### CBC #### [facility] [address] [address] [address] Denise Jalloh DIFF REQNONormalThe [facility] SystemComfresenius [facility] on above: Performed By: #### CBC #### [facility] [address] [place] [address] Dr. Denise Leal (RBC) [Entitic mass]26.8 suQejwae99.9-34.0The [facility] SystemComment on above:Performed By: #### CBC #### [facility] [address] [place] [address] Dr. Denise Leal (RBC) [Mass/Vol]32.4 g/jYPixbky44.9-35.2The [facility] on above:Performed By: #### CBC #### [facility] [address] [place] [address] Dr. Denise Leal (RBC) [Entitic vol]82.7 iWOnkbab08.0-94.0The [facility] SystemComment on above:Performed By: #### CBC #### [facility] [address] [address] [address] Denise Benavides #0.7 103/ulNormal0.3-0.8The [facility] SystemComfresenius [facility] on above:Performed By: #### CBC #### [facility] [address] [place] [address] Dr. Denise Angelesocytes/100 WBC (Bld)9.0 %Normal1.7-12.0The [facility] Comment on above:Performed By: #### CBC #### [facility] [address] [address] [address] Denise Christensen #4.7 103/ulNormal1.4-6.5The [facility] SystemComment on above:Performed By: #### CBC #### [facility] [address] [address] [address] Denise Henleyutrophils/100 WBC (Bld)57.4 %Aizaka27.0-75.0The [facility] SystemComment on above:Performed By: #### CBC #### [facility] [address] [address] [address] Denise Alexlet mean volume (Bld) [Entitic vol]10.5 fLNormal9.5-13.5The [facility] SystemComment on above:Performed By: #### CBC #### [facility] [address] [address] [address] Denise MasonPLT212 103/wwSjsgwo217-808Xzr [facility] SystemComment on above: Performed By: #### CBC #### [facility] [address] [place] [address] Dr. Denise MasonRBC6.08 106/ulNormal4.70-6.10The [facility] SystemComment on above:Performed By: #### CBC #### [facility] [address] [place] [address] Dr. Denies MasonWBC8.3 103/ulNormal4.0-11.0The [facility] SystemComment on above: Performed By: #### CBC #### [facility] [address] [place] [address] Dr. Denise MasonGLYCOHEMOGLOBIN A1Con 11-36-5588BIA RECOMMENDATIONSEE BELOWNormal [facility] HospitalCom[facility] on above:Result Comment: ADA RECOMMENDED LIMIT 4.0 - 6.0 ADA THERAPEUTIC TARGET < 7.0 ACTION SUGGESTED > 7.0Performed By: #### A1C #### [facility] [address] [place] [address] Dr. Denise MasonGlucose [Mass/Vol]169 mg/dLMain Campus Medical CenterComment on above:Performed By: #### A1C #### [facility] [address] [place] [address] Dr. Denise MasonHbA1c (Bld) [Mass fraction]7.5 %Critically high4.5-6.2[facility] on above:Performed By: #### A1C #### [facility] [address] [place] [address] Dr. Denise ArceID PROFILEon 88-26-8608YTFG-HDL RATIO NORMSEE [facility]Comf[facility] on above:Result Comment: 3.3 - 4.4 LOW RISK 4.4 - 7.1 AVERAGE RISK 7.1 - 11.0 MODERATE RISK >11.0 HIGH RISKPerformed By: #### CMP, LIPID, URIC #### [facility] [address] [place] [address] Dr. Denise Larkinesterol [Mass/Vol]240 mg/dLCritically high<=200The [facility] on above:Performed By: #### CMP, LIPID, URIC #### [facility] [address] [place] [address] Dr. Denise Larkinesterol in HDL [Mass/Vol]44 mg/zKMsttbq00-14WfkHighland District Hospital on above:Performed By: #### CMP, LIPID, URIC #### [facility] [address] [place] [address] Dr. Denise Larkinesterol in LDL [Mass/Vol]151.6 mg/dLAultman Hospital on above:Performed By: #### CMP, LIPID, URIC #### [facility] [address] [place] [address] Dr. Denise Grover.total/Cholesterol in HDL [Mass ratio]5.5 {ratio} NormalThe [facility] on above:Performed By: #### CMP, LIPID, URIC #### [facility] [address] [place] [address] Dr. Denise MasonHDL NORMAL> or = 60 mg/dl - LOW CARDIOVASCULAR RISK <40 mg/dl - HIGH CARDIOVASCULAR RISKMain Campus Medical CenterComment on above:Performed By: #### CMP, LIPID, URIC #### [facility] [address] [address] [address] Denise Huffman CALC NORMALSEE BELOWMain Campus Medical CenterComfresenius medical [facility] on above:Result Comment: <100 mg/dl OPTIMAL 100 - 129 mg/dl NEAR OR ABOVE OPTIMAL 130 - 159 mg/dl BORDERLINE HIGH 160 - 189 mg/dl HIGH >190 mg/dl VERY HIGH Performed By: #### CMP, LIPID, URIC #### [facility] [address] [address] [address] Denise MasonTriglyceride [Mass/Vol]222 mg/dLCritically high<=150The [facility] on above:Performed By: #### CMP, LIPID, URIC #### [facility] [address] [place] [address] Dr. Denise BaroneLDL CALC44.4 mg/dLNoTrumbull Regional Medical CenterComment on above: Performed By: #### CMP, LIPID, URIC #### [facility] [address] [place] [address] Dr. Denise Montelongo 14(COMP METB)on 44-82-2665Shhcmsb [Mass/Vol]3.9 g/dLNormal 3.4-5.0The [facility] on above:Performed By: #### CMP, LIPID, URIC #### [facility] [address] [place] [address] Dr. Denise MasonAlbumin/Globulin [Mass ratio]1.0 {ratio}NormalThe [facility] on above:Performed By: #### CMP, LIPID, URIC #### [facility] [address] [place] [address] Dr. Denise Ross [Catalytic activity/Vol]43 U/LCritically xyj57-235Tvp [facility] on above:Performed By: #### CMP, LIPID, URIC #### [facility] [address] [place] [address] Dr. Denise Pittman [Catalytic activity/Vol]31 U/CXukdgf75-21Bzd [facility] SystemComment on above:Performed By: #### CMP, LIPID, URIC #### [facility] [address] [place] [address] Dr. Denise Lopezon gap [Moles/Vol]12.0 mmol/LNormalPaulding County Hospital Comment on above:Performed By: #### CMP, LIPID, URIC #### [facility] [address] [place] [address] Dr. Denise MasonAST [Catalytic activity/Vol]22 U/QQbzezs23-50Qgg [facility] SystemComment on above:Performed By: #### CMP, LIPID, URIC #### [facility] [address] [place] [address] Dr. Denise MsaonBilirubin [Mass/Vol]0.4 mg/dLNormal0.2-1.0[facility] Comment on above:Performed By: #### CMP, LIPID, URIC #### [facility] [address] [place] [address] Dr. Denise MasonCalcium [Mass/Vol]9.2 mg/dLNormal8.5-10.1[facility] Comment on above:Performed By: #### CMP, LIPID, URIC #### [facility] [address] [place] [address] Dr. Denise MasonChloride [Moles/Vol]99 mmol/JGzqhdl97-730Oeh [facility] Comment on above:Performed By: #### CMP, LIPID, URIC #### [facility] [address] [place] [address] Dr. Denise MasonCO2 [Moles/Vol]24.4 mmol/RXjlben46.0-32.0[facility] Comment on above:Performed By: #### CMP, LIPID, URIC #### [facility] [address] [place] [address] Dr. Denise MasonCreatinine [Mass/Vol]1.01 mg/dLNormal0.70-1.30The [facility] SystemComment on above:Performed By: #### CMP, LIPID, URIC #### [facility] [address] [address] [address] Denise SteinGFR-AF CROATIAN>60Normal>=60The [facility] SystemComment on above:Performed By: #### CMP, LIPID, URIC #### [facility] [address] [address] [address] Denise SteinGFR-NON AF CROATIAN>60Normal>=60The [facility] SystemComment on above:Performed By: #### CMP, LIPID, URIC #### [facility] [address] [address] [address] Denise MasonGlobulin (S) [Mass/Vol]3.9 g/dLNormalThe [facility] SystemComment on above:Performed By: #### CMP, LIPID, URIC #### [facility] [address] [address] [address] Denise MasonGlucose [Mass/Vol]137 mg/dLCritically rtcg84-578Bii [facility] SystemComment on above:Performed By: #### CMP, LIPID, URIC #### [facility] [address] [address] [address] Denise MasonPotassium [Moles/Vol]4.4 mmol/LNormal3.5-5.1The [facility] Comment on above:Performed By: #### CMP, LIPID, URIC #### [facility] [address] [address] [address] Denise MasnoProtein [Mass/Vol]7.8 g/dLNormal6.4-8.2The [facility] Comment on above:Performed By: #### CMP, LIPID, URIC #### [facility] [address] [address] [address] Denise MasonSodium [Moles/Vol]131 mmol/LCritically iet159-554Edf Wilson Street Hospitalment on above:Performed By: #### CMP, LIPID, URIC #### [facility] [address] [address] [address] Denise MasonUrea nitrogen [Mass/Vol]21.0 mg/dLCritically high7.0-18.0The [facility] SystemComment on above:Performed By: #### CMP, LIPID, URIC #### [facility] [address] [address] [address] Denise MasonUrea nitrogen/Creatinine [Mass ratio]20.8 mg/mgNormalThe [facility] SystemComment on above:Performed By: #### CMP, LIPID, URIC #### [facility] [address] [address] [address] Denise MasonURIC ACID SERUMon 21-15-2827Kvapr [Mass/Vol]4.9 mg/dLNormal 3.5-7.2The [facility] SystemComment on above:Performed By: #### CMP, LIPID, URIC #### [facility] [address] [address] [address] Denise MasonAmbulatory Visit Summaryon 02-08-0763Klrxvcnluk Visit Summary CORNELIUS OLGUIN Sammi :1970 Visit Date:03/11/2022 Ambulatory Visit Instructions Your Diagnosis BPH with urinary obstruction Erectile dysfunction Phimosis Your Care Team Attending Physician - Landen Duque Jr., MD Primary Care Physician - Moni Espino MD [...] URO When: Where: [facility] [address] [place] [address]- Medications What How Much When Instructions Unchanged [...] Mouth 2 times a day Contact prescribing physicianif questions or concerns Unchanged levothyroxine (Synthroid 200 [...] or pelvic injuries, diabetes mellitus, multiple sclerosis, orParkinson disease. What are the signs or symptoms? [...] specific problems with the (more content not included)...[facility] HospitalPatient Education on 24-44-4367Dyjqfvz EducationUrology Erectile Dysfunction Erectile dysfunction (ED) is the [...] ring are placed on the penis and usedto create pressure that helps the penis become [...] these instructions at home: Medicines ? Take slyp-sde-xurveiu and prescription medicines only as told by [...] care provider. Work with your health care providerto lose weight, if needed. ? Do not use any products that contain nicotine or tobacco, such as cigarettes and e-cigarettes. Ifyou need help quitting, ask your health care [...] to the nearest emergency room for evaluation. Anerection that lasts much longer than 4 hours can result in permanent damage to your penis. ? You have severe pain in your groin or abdomen. ? You develop redness or severe swelling of your (more content not included)... [facility] HospitalUrology Office/Clinic Noteon 54-08-7766Igqpgxz Office/Clinic NoteChief Complaint 1 month This patient has a history of phimosis that been treated with circumcision. He later had balanitis that was treated with oral and topical medications. At present he complains of erectile dysfunction which he states began after he started taking tamsulosin twice a day. He is voiding with good streamand good control. HPI Staff This is a [...] denies hematuria, denies discharge, denies urinary frequency, deniesurinary hesitancy, denies nocturia, denies incontinence, denies genital [...] activity., # 30 tab(s), Refills(s) 1, Pharmacy: [facility]/pharmacy #[id number], 163, cm, 03/11/22 11:25:00 EDT, Height/Length Dosing, 126, kg, 03/11/22 11:25:00 EDT, Weight Dosing Follow-up With When Contact Information Neto Keith MD, Landen Chapa, [facility]RO [facility] [address], [place] [address]- Additional Instructions: PRN Patient Education Erectile Dysfunction IMia, personally scribed for Dr. Duque on 03/11/2022 [...] tab(s), Oral, D (more content not included)... [facility] HospitalComment on above:Result Comment: Electronically Signed By: Duque JrLanden Ng MD\.br\Date and Time Signed: 03/11/2211:45 EDT\.br\Electronically Co-Signed By: Mia Singh\Date and Time Co- Signed: 03/11/22 11:41 EDTAmbulatory Visit Summaryon 07-29-4176Ughxqzrnpe Visit Summary CORNELIUS OLGUIN :1970 Visit Date:02/14/2022 Ambulatory Visit Instructions Your Diagnosis BPH with urinary obstruction Phimosis Tests Performed Urnls Dip Stick Auto w/o Microscopy POC 39080 Your Care Team Attending Physician - GINA [...] Follow-Up Appointments Friday 11:15 AM EDT With: Landen Duque Jr., MD [facility]Patient Educationon 19-17-9626Dnwfbfq EducationUrology Circumcision Information Boys are born with a [...] a personal one. It is often based onreligious, social, or cultural beliefs. Circumcision is most [...] of the penis (foreskin). This fold of skinis often removed shortly after with a surgery that is called circumcision. ? When the foreskin is removed, the head of the penis is easier to wash and keep clean. ? Some men who are circumcised are less likely to carry viruses, get urinary infections, or developcancer of the penis. ? Circumcision is a [...] 07/18/2001 Document Revised: 01/04/2019 Document Reviewed: 01/04/2019 [employer] Patient Education ? 2019 [place] Urology Office/Clinic Noteon 43-74-7306Nptxykh Office/Clinic NoteChief Complaint Pt is here for 2 month [...] and is aware that some of the frequency/urgencyis unavoidable. since he's not having any side effects we will go ahead and try doubling the Flomaxand see if we can get more sx relief from the higher dose. another option in the future would be toconsider anticholinergics. 2. Phimosis (N47.1: Phimosis) Pt is PO Circumcision 11/22/2021 by FRANCIE. pt c/o pain diffusely along the shaft of the penis which isworse with movement, voiding, cleaning the area. has [...] bacterial infection. possibly chronic fungal. considering BXO ondifferential, even though it's rare, the appearance and his history are suspicious. discussed case with DLS who recommends we try a round of oral + topical antifungals. will reassess within a month. Follow-up With When Contact Information GINA VICTORIA PA-C, URL In 1 month 03/17/2022 EDT [address] [place] [address] [phone] Additional Instructions: Patient Education Circumcision Information I, Ann Rudd, personally scribed for Gina Victoria PA-C on 02/14/2022 16:19:49. . Documentation recorded by the taylor Rudd accurately reflects the services(s) I performed [...] Results Bilirubin Urine Dipstic (more content not included)...[facility] HospitalComment on above:Result Comment: Electronically Signed By: GINA VICTORIA PA-C\.br\Date and Time Signed: 02/15/2216:40 EDT\.br\Electronically Co- Signed By: Ann Rudd MA\.br\Date and Time Co-Signed: 02/14/22 16:20 EDT Ambulatory Visit Summaryon 43-47-6881Sdjngygflm Visit Summary CORNELIUS OLGUIN :1970 Visit Date:12/13/2021 Ambulatory Visit Instructions Your Diagnosis Phimosis BPH with urinary obstruction BMI 45.0-49.9, adult Other obstructive and reflux uropathy Tests Performed Urnls Dip Stick Auto w/o Microscopy POC 39397 Your Care Team Attending Physician - GINA [...] GINA VICTORIA [facility]-C [facility] CORNELIUS OLGUIN :1970 Visit Date:12/13/2021 Ambulatory Visit Instructions Your Diagnosis Phimosis BPH with urinary obstruction BMI 45.0-49.9, adult Other obstructive and reflux uropathy Tests Performed Urnls Dip Stick Auto w/o Microscopy POC 08372 Your Care Team Attending Physician - GINA [...] Schedule the Following Appointments Follow Up with JULIEN BRONSON, BREANA JEFF When: In 3 months 03/15/2022 EDT Where: [address] [place] [address] Medications What How Much When Instructions Unchanged doxycycline (doxycycline hyclate 100 mg Cap) 1 Capsules By Mouth 2 times a day Unchanged cephalexin (cephalexin 500 mg Cap) 1 Capsules By Mouth Every 12 hours Contact prescribingphysician if questions or concerns Unchanged empagliflozin (Jardiance [...] Mouth 2 times a day Contact prescribing physicianif questions or concerns Unchanged levothyroxine (Synthroid 200 [...] Urnls Dip Stick Auto w/o Microscopy POC 04700 (12/13/2021) Bilirubin Urine Dipstick - Negative Blood Urine Dipstick - Trace-intact Glucose Urine Dipstick - 2+ 500 mg/dl Ketones Urine Dipstick - Negative Leukocytes Urine Dipstick - Negative Nitrite Urine Dipstick - Negative Protein Urine Dipstick - Negative Specific [place] Urine Dipstick - 1.020 Urine Appearance Urine [...] the testicles. You may be at risk ifyou have: ? A testicle that has not [...] your body. ? L (more content not included)...[facility] Educationon 82-66-5082Wpobitx EducationNutrition Calorie Counting for Weight Loss Calories are [...] sure to eat fewer calories than your bodyneeds, you should lose weight. Ask your health care provider what a healthy weight is for you. For calorie counting to work, you will need to eat the right number of calories in a day in order to lose a healthy amount of weight per week. A dietitian can help you determine how many calories youneed in a day and will give you [...] label. If a food does not have aNutrition Facts label, try to look up the calories online or ask your dietitian for help. Remember that calories are listed per serving. If you choose to have more than one serving of a food, you will have to multiply the calories per serving by the amount of servings you plan to eat. Forexample, the label on a package of bread [...] you how many calories you have left forthe day to meet your goal. What are [...] juices have a lot of calories, yet donot fill you up. ? Eat nutritious foods and avoid empty calories. Empty calories are calories you get from foods or beverages that do not have many vitamins or protein, such as candy, sweets, and soda. It is better to have a nutritious high-calorie food (such as an avocado) than a food with few nutrients (such as abag of chips). ? Know how many calories [...] serving sizes. You could (more content not included)...[facility] Office/Clinic Noteon 78-03-7433Ievcgat Office/Clinic NoteChief Complaint pt is here for f/u to [...] or suspicious lesions : well healed, no redness/swelling/tenderness Assessment/Plan Will return for follow up in [...] assess improvement. Follow-up With When Contact Information GINA VICTORIA PA-C, URL In 3 months 03/15/2022 EDT [address] [place] [address] Additional Instructions: Patient Education Testicular Self-Exam, Qcnj-va-Xamf Calorie Counting for Weight Loss Brittani Garvin, personally scribed for Gina Victoria PA-C on 12/13/2021 14:39:01. . Documentation recorded by the taylor Husain accurately reflects the services(s) I performed [...] Protein Urine Dipstick: Negative (12/13/21 14:12:00) Specific [place] Urine Dipstick: 1.020 (12/13/21 14:12:00) Urine Appearance Urine Dipstick: Clear (12/13/21 14:12:00) Urine Color Urine Dipstick: Ye (more content not included)...[facility] HospitalComment on above:Result Comment: Electronically Signed By: GINA VICTORIA PA-C\.br\Date and Time Signed: 12/13/2213:43 EDT\.br\Electronically Co-Signed By: Brittani Husain\.br\Date and Time Co-Signed: 12/13/21 14:39 EDT IntraOperative Documentson 01-67-3889SujfkVxutypgpt Documents [id number]#1.00CD:127[facility] HospitalPostoperative Documentson 05-58-5657Uqihhxctdtppd Documents [id number]#1.00CD:[address] [place], [place] [address]Coding Summary.on 28-64-2796Knfubo Summary. CD:[id number]:[id number]+PGhlYWQ+JU6LSBEcA98udVBgcH7ZU2fSQS5DUKPDXYTEZW9EIR0hr YQ4ZZlzX4IlfcIe [file] PSdi (more content not included)...NormalGerman HospitalConsent for Anesthesiaon 43-11-4295Nfpzkxr for Anesthesia .[id number]#1.00CD:127NormSelect Medical Specialty Hospital - YoungstownDischarge Instructionson 34-17-0597Nstfxwhjb Instructions [id number]#1.00CD:127NormSelect Medical Specialty Hospital - YoungstownIntraOperative Documentson 59-61-7410ZxjxkHagfygccw Documents [id number]#1.00CD:127[facility] HospitalPreoperative Documentson 43-23-9803Tqueghitdmvo Documents [id number]#1.00CD:127[facility] HospitalPreoperative [id number]#1.00CD:127 [facility] HospitalCHEMISTRYOrdered By: Carlos DOOLEYUser on 11-22-2021 Glucose [Mass/Vol]170 mg/aHEvdc05 - 99 mg/dLCLAREMORE INDIAN [facility] [place] POC SubsectionComment on above: Result Comment: Cleaned MeterPOC Device [id number] Interpretation CodeCLAREMORE INDIAN HOSP[facility] [place] POC SubsectionPOC User [id number] Interpretation CodeCLAREMORE INDIAN [facility]OSP[facility] [place] POC SubsectionPOC UsernameGJose MCKEONvalid Interpretation CodeCLAREMORE INDIAN HOSPITAL [facility] [place] POC Subsection Capillary Glucose POCon 22-74-6858Wzokhsh [Mass/Vol]170 mg/cJTrtb82-33DgonjnGerman HospitalComment on above:Result Comment: Cleaned MeterPerformed By: #### [id number] ####[facility] [address] [place], [place] [address]Ghbbsct for Procedure/Surgeryon 82-52-2388Lallxba for Procedure/[id number]#1.00CD:127rmal German HospitalConsent for Treatmenton 75-35-4209Ndiqiro for [id number]#1.00CD:[address] [place], [place] [address]H&P Updateon 11-22-2021H&P Update [id number]#1.00CD:[address] [place], [place] [address]Inpatient Patient Summaryon 95-17-9220Yigjbwhaz Patient Summary [address] [address] [facility] Clinical Discharge Instructions PERSON INFORMATION Name: CORNELIUS OLGUIN PHYSICIANS Admitting Physician: Landen Duque Jr., MD Attending Physician: Landen Duque Jr., MD PCP: Kenzie BROOKS, Moni Discharge Diagnosis: Comment: PATIENT EDUCATION INFORMATION Instructions: Post Op Patient Instructions - FT (Custom) Medication Leaflets: Follow up: With: Address: When: GINA VICTORIA [address] [place], [place] [phone] [facility] (1) Within 2 to 4 weeks MEDICATION LIST New Medications [facility]/pharmacy #[id number], [address] [place], [place] [phone], [phone] acetaminophen-oxycodone (Percocet 5 mg-325 mg oral tablet) 1 [...] Tab) 1 Tablets By Mouth at bedtime. Comment:[facility]Main OR Intraoperative Recordon 63-64-2055Mnqf OR Intraoperative RecordIntraOp Document Type FT Summary Primary Physician: Landen Duque Jr., MD Finalized Date/Time: 11/22/21 14:09:18 Pt. Name: CLAU, CORNELIUS Sammi Bain./Sex: 1970 Male Med Rec #: [id number] Physician: Neto Keith MD, Landen Chapa Financial #: [id number] Pt. Type: A Room/Bed: [place] [address] Admit/Disch: 11/22/21 05:40:49 - 11/22/21 10:25:00 Institution: Case Times FT Entry 1 Patient Times In Room 11/22/21 07:47:00 Out Room 11/22/21 08:41:00 Procedure Times Start 11/22/21 08:10:00 Stop 11/22/21 08:36:00 Anesthesia Times Start 11/22/21 07:47:00 Stop 11/22/21 08:41:00 Last Modified By: Franny Persaud RN 11/22/21 08:48:12 General Comments: 11/22/21 Chart opened to review and send charges LRoth CSFA Case Attendance FT Entry 1 Entry 2 Entry 3 Case Attendee Jeffery MARTINEZ, Antonio Duque Jr., MD, Yassine Wen JR, DO Role Performed [employer]ER Surgeon - Primary Anesthesiologist of Record Time In 11/22/21 07:47:00 11/22/21 07:47:00 11/22/21 07:47:00 Time Out 11/22/21 08:41:00 11/22/21 08:41:00 11/22/21 08:41:00 Procedure CIRCUMCISION ADULT(.) CIRCUMCISION ADULT(.) CIRCUMCISION ADULT(.) Comments Last Modified By: Shanna ROSA, Cristiane Persaud RN, Franny Persaud RN, Franny Davila 11/22/21 14:06:07 11/22/21 08:48:15 11/22/21 08:48:15 Entry 4 Entry 5 Case Attendee Hung IRAHETA, Mary Patel CST Role Performed [employer] - Primary Scrub - Primary Time In 11/22/21 07:47:00 11/22/21 07:47:00 Time Out 11/22/21 08:41:00 11/22/21 08:41:00 Procedure CIRCUMCISION ADULT(.) CIRCUMCISION ADULT(.) Comments Last Modified By: Hung IRAHETAFranny RN, Kendra R 11/22/21 08:48:15 11/22/21 08:48:15 Perioperative Protocols FT [...] Gil CRNA, Given Participants Neto Keith MD, Landen Chapa, Franny Persaud RN, Slusher CST, Mary Rivera Time Out Complete 11/22/21 [...] and tissue Entry 1 Skin Integrity Intact, [place], Warm, and Skin Abnormality No Dry Outcomes [...] on Padded Arm Boa (more content not included)...[facility] HospitalMain OR PACU I Recordon 20-70-8678Sznt OR PACU I RecordPACU Phase I Document Type FT Summary Primary Physician: Landen Duque Jr., MD Finalized Date/Time: 11/22/21 09:20:12 Pt. Name: CLAUCORNELIUS./Sex: 1970 Male Med Rec #: [id number] Physician: Landen Duque Jr., MD Financial #: [id number] Pt. Type: A Room/Bed: [facility]/ Admit/Disch: 11/22/21 05:40:49 - Institution: Case Times [...] individualized perioperative plan of care The patient's rightto privacy is maintained The patient's value system, [...] with or improved from baseline levels established preoperativelyThe patient's cardiovascular status is consistent with or improved from baseline levels established preoperatively The patient's cardiovascular status is consistent with or improved from baseline levels established preoperatively The patient demonstrates and/or reports adequate pain control throughout the perioperative period The patient received appropriate medication(s), safely administered during the perioperativeperiod Acuity Level PACU I FT Entry 1 Start Time 11/22/21 08:42:00 Stop Time 11/22/21 09:12:00 Acuity Level Acuity Level I Last Modified By: Yani Roth RN 11/22/21 09:19:58 Finalized By: Yani Roth RN Document Signatures Signed By: Yani Roth RN 11/22/21 09:20[facility] OR PACU II Recordon 00-01-7766Joac OR PACU II RecordPACU Phase II Document Type FT Summary Primary Physician: Landen Duque Jr., MD Finalized Date/Time: 11/22/21 10:27:00 Pt. Name: CORNELIUS OLGUIN/Sex: 1970 Male Med Rec #: [id number] Physician: Landen Duque Jr., MD Financial #: [id number] Pt. Type: A Room/Bed: 09/04 Admit/Disch: 11/22/21 [...] and monitors body temperature Evaluates postoperative respiratory statusEvaluates postoperative cardiac status Evaluates postoperative neurological status Assesses pain control, collaborated in initiating patient-controlled analgesia and implements alternative methods of pain control Verifies allergies, administers prescribed medications and solutions, evaluates response to medications Entry 1 In PACU II 11/22/21 09:15:00 Discharge from PACU 11/22/21 10:25:00 II Outcomes Met? Yes Last Modified By: Jeanette Acosta RN 11/22/21 10:26:59 Post-Care Text: The patient demonstrates knowledge of the expected response to the operative or invasive procedure The patient's care is consistent with the individualized perioperative plan of care The patient's rightto privacy is maintained The patient's value system, [...] with or improved from baseline levels established preoperativelyThe patient's cardiovascular status is consistent with or improved from baseline levels established preoperatively The patient's neurological status is consistent with or improved from baseline levels established preoperatively The patient demonstrates and/or reports adequate pain control throughout the perioperative period The patient received appropriate medication(s), safely administered during the perioperativeperiod Finalized By: Jeanette Acosta RN Document Signatures Signed By: Jeanette Acosta RN 11/22/21 10:27NoMer[facility] HospitalMain OR Preoperative Recordon 88-29-5389Kkzo OR Preoperative RecordPreOp Document Type FT Summary Primary Physician: Landen Duque Jr., MD Finalized Date/Time: 11/22/21 08:50:12 Pt. Name: CORNELIUS OLGUIN /Sex: 1970 Male Med Rec #: [id number] Physician: Landen Duque Jr., MD Financial #: [id number] Pt. Type: A Room/Bed: [place] [address] Admit/Disch: 11/22/21 05:40:49 - Institution: Case Times [...] Signatures Signed By: Franny Persaud RN 11/22/21 08:50NoMercy Health Perrysburg HospitalMonitor Recordon 89-06-0084Aygaras Record [id number]#1.00CD:127[facility] HospitalOperative Reporton 16-25-8186Hswnwpmti ReportPatient: CORNELIUS OLGUIN Age: 51 years Sex: Male : 1970 Associated Diagnoses: None Author: Landen Duque Jr., MD Postoperative Information Procedure: Elective circumcision Date/ Time: 11/22/2021 08:49:00 Preoperative Diagnosis: Phimosis (BHQ06-JV N47.1, Working, Medical). Postoperative Diagnosis: Phimosis (XFN20-AF N47.1, Working, Medical). Performed by: Landen Duque Jr., MD. Findings: This patient is a 51-year-old male with a history of phimosis. He is being brought to theoperating suite today for elective circumcision. The procedure, [...] penile block. 10 cc was used. When thiswas completed the foreskin was extended over the [...] instructed to limit his physical activity for thenext 24 hours. He may shower for the [...] penis 10 cc. Complications: None. Anesthesia type: General.[facility] HospitalComment on above: Result Comment: Electronically Signed By: Neto Keith MD, Landen Chapa\.br\Date and Time Signed: 11/23/2207:54 EDTOutpatient Surgery Discharge Instructionon 99-13-7254Wvranlbxpb Surgery Discharge Instruction [address] [address] Patient Discharge Instructions PERSON INFORMATION Name: CORNELIUS OLGUIN Date of : 1970 Current Date: 11/22/2021 09:07:43 PHYSICIANS Admitting Physician: Landen Duque Jr., MD Discharge Diagnosis: CLAU CORNELIUS Chapa has been given the following list of [...] THE NEAREST EMERGENCY ROOM OR CALL 911 I, CORNELIUS OLGUIN, have received the attached patient education materials/instructions and have verbalized understanding: May we do a follow up call? Yes No I was present when discharge instructions were given Patient Signature Date Clinican/Nurse Signature Date Follow up: With: Address: When: GINA VICTORIA [address] [place], [place] [address]dg[address] [place], [place] [phone] [facility] () Within 2 to 4 weeks Pharmacy Information: You may receive a survey from [employer] asking you to rate your care experience. Your feedback is important and will help us understand what we do well and how we can improve the quality of care we provide to you, your loved ones and our community. It?s an honor to serve you. Thank you for choosing [facility] HERE ARE THE MEDICATION CHANGES THAT OCCURRED DURING YOUR HOSPITAL STAY New Medications [id number], [address], [place] [phone], [phone] acetaminophen-oxycodone (Percocet 5 mg-325 mg oral tablet) 1 [...] at bedtime. PATIENT EDUCATION INFORMATION Instructions: Medication Leaflets:[facility] HospitalPatient Education - Texton 12-47-2861Mmvbxqx Education - Text [facility] HospitalProgress Note-Physicianon 85-08-0643Cctfzinj Note-PhysicianPatient: CORNELIUS OLGUIN Age: 51 years Sex: Male [...] volume (mL): 1,000, 123.5 kg, 2.36, m2 [place] 5/325 Tab: 1 tab(s), Tab, Oral, q4hr [...] q6hr Pain 8-10, 20 tab(s), Refill(s) 0, [facility]/pharmacy #[id number], 162, cm, 11/19/21 6:31:00 EDT, Height/Length Dosing, 123.5, kg, 11/19/21 6:31:00 EDT, Weight Dosing doxycycline hyclate 100 mg Cap: 100 mg = 1 cap(s), Oral, BID, # 10 tab(s), Refills(s) 0, Pharmacy: [facility]/pharmacy #[id number], 162, cm, 11/19/21 6:31:00 EDT, Height/Length Dosing, 123.5, kg, 11/19/21 6:31:00EDT, Weight Dosing Documented Medications Documented Januvia 100 [...] list: All Problems Diabetes / SNOMED CT 505613717 / Confirmed Seizures / SNOMED CT 293276711 / Confirmed Phimosis / SNOMED CT 2421745847 / Confirmed At risk for hypothyroidism / SNOMED CT 642804862 / Confirmed Resolved: Hypertension / SNOMED CT 5507092976 Resolved: Hypercholesteremia / SNOMED CT 21990092 Resolved: H/O head injury / SNOMED CT 584962158 fell off a ladder Physical Examination Intake and Output Denies significant n/v and is tolerating p.o. Vital Signs (last 24 hrs) Last Charted Heart Rate Apical 78 bpm (NOV 22 06:08) Resp Rate 18 br/min (NOV 22 09:55) SBP H 156mmHg (NOV 22 09:55) DBP H 98mmHg (NOV 22 09:55) SpO2 98 % (NOV 22 09:55) Pain [...] 3 . Respiratory: Adequate air exchange with yazdanism of preoperative function.. Cardiovascular: Cardiovascular function is stable and has returned to preoperative levels.. Neurologic: Pt has returned to preoperative baseline.. Review / Management Condition: Stable. Assessment Anesthetic outcome No anesthetic complications noted. Plan Transfer/ Discharge: Patient can be discharged from PACU when criteria met. Condition good.[facility] HospitalComment on above:Result Comment: Electronically Signed By: Yassine Plaza JR, DO\.br\Date and Time Signed: 11/22/21 14:15 EDTProgress Note-PhysicianPatient: CORNELIUS OLGUIN Age: 51 years Sex: Male : 1970 Associated Diagnoses: None Author: Yassine Plaza JR, DO Postoperative Information Post Operative Note: Post Anesthesia Care Unit. Anesthetic utilized: General, Monitored anesthesia care. Health Status Allergies: Allergic Reactions (Selected) Moderate Penicillin- Rash. Current medications: (Selected) Inpatient Medications Ordered clindamycin additive + Premix Dextrose 5% Diluent 50 mL: 600 mg = 50 mL, Soln- IV, IV Piggyback, Once, Stop date 11/22/21 6:00:00 EDT, Routine, Start date 11/22/21 6:00:00 EDT, 100 mL/hr, Infuse over 30 minute(s) gentamicin additive + Sodium Chloride 0.9% intravenous solution 50 mL: 120 mg = 3 mL, Injection, IVPiggyback, Once, Stop date 11/22/21 6:00:00 EDT, Routine, [...] list: All Problems Diabetes / SNOMED CT 484113161 / Confirmed Seizures / SNOMED CT 871861520 / Confirmed Phimosis / SNOMED CT 6658110659 / Confirmed At risk for hypothyroidism / SNOMED CT 741853097 / Confirmed Resolved: Hypertension / SNOMED CT 1127661838 Resolved: Hypercholesteremia / SNOMED CT 18038563 Resolved: H/O head injury / SNOMED CT 084374730 fell off a ladder Physical Examination Intake and Output Denies significant n/v and is tolerating p.o. No qualifying data available Respiratory: Adequate air exchange with yazdanism of preoperative function.. Cardiovascular: Cardiovascular function is stable and has returned to preoperative levels.. Neurologic: Pt has returned to preoperative baseline.. Review / Management Condition: Stable. Assessment Anesthetic outcome No anesthetic complications noted. Plan Transfer/ Discharge: Patient can be discharged from PACU when criteria met. Condition good.[facility] HospitalComment on above:Result Comment: Electronically Signed By: Yassine Plaza JR, DO, JProgress Note-Physicianon 84-80-4844Qhbxbluu Note-PhysicianPatient: CORNELIUS OLGUIN Age: 51 years Sex: Male [...] 50 mL: 600 mg = 50 mL, Soln- IV, IV Piggyback, Once, Stop date 11/22/21 6:00:00 EDT, Routine, Start date 11/22/21 6:00:00 EDT, 100 mL/hr, Infuse over 30 minute(s) gentamicin additive + Sodium Chloride 0.9% intravenous solution 50 mL: 120 mg = 3 mL, Injection, IVPiggyback, Once, Stop date 11/22/21 6:00:00 EDT, Routine, [...] list: All Problems Diabetes / SNOMED CT 412165528 / Confirmed Seizures / SNOMED CT 358644965 / Confirmed Phimosis / SNOMED CT 9992462106 / Confirmed At risk for hypothyroidism / SNOMED CT 735784360 / Confirmed Resolved: Hypertension / SNOMED CT 1190960010 Resolved: Hypercholesteremia / SNOMED CT 24309534 Resolved: H/O head injury / SNOMED CT 838290581 fell off a ladder, Active Problems (4) At risk for hypothyroidism Diabetes Phimosis Seizures Histories Past Medical History: No active or resolved past medical history items have been selected or recorded. Family History: Hypertension Father Congenital heart disease Father Diabetes mellitus type 1 Father Procedure history: Colonoscopy (392387357). Social History Social & Psychosocial Habits Alcohol 11/16/2021 Risk Assessment: Denies Alcohol Use Substance Abuse 11/16/2021 Risk Assessment: Denies Substance Abuse Tobacco 11/16/2021 Smokeless tobacco use: Current vaping or e-cigar Type: Vaping . Physical Examination No qualifying data available Airway: Normal oral/pharyngeal anatomy.. Respiratory: Adequate air exchange.. Cardiovascular: Adequate perfusion and function. Review / Management Results review: No qualifying data available . Plan [place] [employer]hesi[employer] (ASA) physical status classification: Class III. Anesthetic Preoperative Plan Anesthesia: General. . Anesthetic plan, risks, benefits, and alternatives discussed with the patient and/or family. Pt. and/or family present and agree to proceed as planned.. Discussed the importance of abstaining from tobacco products, and offered counseling if desired.[facility] HospitalComment on above:Result Comment: Electronically Signed By: Yassine Plaza JR, DO.greta\Date and Time Signed: 11/21/21 07:39 EDTCoding Summary.on 65-16-1851Zjucft Summary. CD:[id number]+PGhlYWQ+CB9GVIKfY10rsRMxmM1NW9iDQR2XIZQCUMVCHI3VWY7pq PX4PDwgR1AfieAi [file] OiBj (more content not included)...NormalGerman HospitalFormson [id number]#1.00CD:127NoMercy Health Perrysburg HospitalImmunization Recordson 24-81-3361Acmbgsuuodqz Records [id number]#1.00CD:127[facility] HospitalAuto Diffon 01-37-9568Dqiuxdbhd/100 WBC (Bld)1.1 %Normal0.0-2.0German HospitalComment on above:Order Comment: Order Added by Discern Expert.Performed By: #### 2652673, 9505973, 12485148, 7922853, 72611763 ####[facility] [address] [place] [address] Basophils/Leukocytes Auto (Bld) [Pure # fraction]0.1 E9/LNormal0.0-0.2FUniversity Hospitals Ahuja Medical CenterComment on above:Order Comment: Order Added by Discern Expert.Performed By: #### 8262393, 7904683, 12839960, 4096173, 38889620 ####[facility] [address]qmm[address] [place] [address] Eosinophils/100 WBC (Bld)3.1 %Normal0.0-8.0German HospitalComment on above:Order Comment: Order Added by Discern Expert.Performed By: #### 3593195, 7914778, 29415601, 6522033, 37140934 ####[facility] [address] [place], [place] [address]Nxwyfdxaepr/Leukocytes Auto (Bld) [Pure # fraction]0.2 E9/LNormal0.0-0.5FUniversity Hospitals Ahuja Medical CenterComment on above: Order Comment: Order Added by Discern Expert.Performed By: #### 7409126, 7560548, 84119530, 7097839, 52627152 ####[facility] [place], [place] [address]Oykhlcaorre/100 WBC (Bld)29.1 %Normal 14.0-50.0German HospitalComment on above:Order Comment: Order Added by Discern Expert.Performed By: #### 3140783, 6637372, 94370310, 5609542, 25300511 ####[facility] [address] [place], [place] [address]Hikjfqdetok/Leukocytes Auto (Bld) [Pure # fraction]2.3 E9/LNormal1.0-4.0 German HospitalComment on above:Order Comment: Order Added by Discern Expert.Performed By: #### 9321010, 3797459, 97112507, 9550142, 05782665 ####[facility] [address] [place] [address] Monocytes/100 WBC (Bld)10.9 %Normal4.0-14.0German HospitalComment on above:Order Comment: Order Added by Discern Expert.Performed By: #### 9005255, 1850953, 52703936, 6560887, 75512528 ####[facility] [address] [place], [place] [address]Byzyllwjq/Leukocytes Auto (Bld) [Pure # fraction]0.8 E9/LNormal0.2-1.0German HospitalComment on above:Order Comment: Order Added by Discern Expert.Performed By: #### 6627639, 6837848, 55887774, 3201536, 24529696 ####[address] [address]Tozbvuqmuvb/100 WBC (Bld)55.8 %Zpiznz82.0-75.0 German HospitalComment on above:Order Comment: Order Added by Discern Expert.Performed By: #### 7193721, 0306693, 05108893, 1148295, 71417629 ####[address] [place] [address] Neutrophils/Leukocytes Auto (Bld) [Pure # fraction]4.3 E9/LNormal2.0-7.5FUniversity Hospitals Ahuja Medical CenterComment on above:Order Comment: Order Added by Discern Expert.Performed By: #### 3427614, 1404128, 25936598, 7650794, 02164141 ####[address] [place], [place] [address]HTAmq 80-38-7245Brvfk gap [Moles/Vol]15 mmol/LNormal6-16[facility] Comment on above:Performed By: #### 9576396, 7295651, 32948086, 4526904, 02023278 ####[address] [place], [place] [address]Alatsbf [Mass/Vol]9.6 mg/dLNormal8.9-11.1FUniversity Hospitals Ahuja Medical CenterComment on above:Performed By: #### 0273584, 4778622, 34340909, 4910109, 75754135 ####[facility] [address] [place] [address] Chloride [Moles/Vol]102 mmol/GYjkipq113-114WsxcdeGerman HospitalComment on above:Performed By: #### 0228316, 6015338, 77650169, 2836190, 09103330 ####[facility] [address] [place], [place] [address]DE9 [Moles/Vol]23 mmol/OUgxurt07-78XjtimrGerman HospitalComment on above: Performed By: #### 2514254, 0901204, 26455358, 1213879, 92070589 ####[facility] [address] [place], [place] [address]Lcfjshinxg [Mass/Vol]1.0 mg/dLNormal0.5-1.3FUniversity Hospitals Ahuja Medical CenterComment on above: Performed By: #### 6343296, 1836080, 05269388, 2347458, 34267368 ####[facility] [address] [place], [place] [address]Apragvw [Mass/Vol]150 mg/pKJljbov75-028OevlhkGerman HospitalComment on above: Result Comment: If this glucose result represents a fasting glucose, interpretation should refer tothe following reference range: 55-99 mg/dL Performed By: #### 6205207, 6626100, 78881678, 4744530, 01828466 ####[facility] [address] [place], [place] [address]Ueeptrbtv [Moles/Vol]4.7 mmol/LNormal3.5-5.3FUniversity Hospitals Ahuja Medical CenterComment on above: Performed By: #### 0465411, 1722043, 33695100, 2898393, 83227295 ####[address] [place], [place] [address]Cjvgmo [Moles/Vol]135 mmol/OQxapbv410-315JmvtbpGerman HospitalComment on above: Performed By: #### 0953641, 2417283, 91848866, 8661891, 74082528 ####[address] [address]Apve nitrogen [Mass/Vol]20 mg/dLNormal5-21German HospitalComment on above: Performed By: #### 4398782, 3764152, 41523778, 0125441, 83249391 ####[address] [address]Vnle nitrogen/Creatinine [Mass ratio]20 No BvypwCkxdyp09-26VgtyhsGerman HospitalComment on above:Performed By: #### 6548527, 4856435, 45781783, 8177236, 33787066 ####[address] [address]LZT w/ Auto Diffon 94-90-7510Yamadesnfqr distribution width (RBC) [Ratio] 15.1 %High10.9-14.2FUniversity Hospitals Ahuja Medical CenterComment on above:Performed By: #### 5283540, 7949436, 77000719, 6491857, 93245116 ####[address] [address]Bazwjubzej (Bld) [Volume fraction]46.1 %Jxusbf32.7-49.0German HospitalComment on above: Performed By: #### 4862320, 2182083, 59195397, 7901882, 05489658 ####[address] [address]Yfcrljwvea (Bld) [Mass/Vol]15.5 g/yPJvjrkv57.5-17.5FUniversity Hospitals Ahuja Medical CenterComment on above: Performed By: #### 2932411, 4914958, 49074076, 3484735, 18877533 ####[address] [address]HKK (RBC) [Entitic mass]27.6 rtKbskhy46.0-34.0German HospitalComment on above: Performed By: #### 3274959, 7854272, 88645262, 8550996, 37222010 ####[address]57MCHC (RBC) [Mass/Vol]33.7 g/jCNsbtln99.4-36.0German HospitalComment on above: Performed By: #### 7198294, 4664888, 04615334, 2495077, 32826830 ####[address] [address]SHE (RBC) [Entitic vol]81.8 oMRlgqia80.0-100.0German HospitalComment on above: Performed By: #### 8854138, 4260085, 95015280, 9404843, 36839374 ####[address] [address]Txwkczny mean volume (Bld) [Entitic vol]9.3 fLNormal6.4-10.8German HospitalComment on above:Performed By: #### 3719596, 2509023, 42095517, 8553392, 43666523 ####[address] Platelets (Bld) [#/Vol]158.0 E9/ECtfuid773.0-500.0[facility] Comment on above:Performed By: #### 4658768, 6130792, 22032445, 0373917, 87710460 ####[address] [address]OIO (Bld) [#/Vol]5.6 E12/LNormal4.3-5.9German HospitalComment on above:Performed By: #### 6725143, 7161969, 68786526, 1287339, 58332548 ####[facility] [address] [place], [place] [address]JWO corrected for nucl RBC Auto (Bld) [#/Vol]7.8 E9/LNormal4.0-11.0German HospitalComment on above:Result Comment: Slide reviewed by ts .Performed By: #### 4564979, 9309108, 17182468, 1235093, 10307735 ####[facility] [address] [place], [place] [address]Dxfuolv for Treatmenton 08-25-2925Gihahoz for Treatment [id number]#1.00CD:127NormalGerman HospitalConsent for [id number]#1.00CD:127 NormalGerman HospitalPT & PTTon 04-61-2074gDAG Coag (PPP) [Time]32.9 second(s)Gfwlrx31.1-36.5FUniversity Hospitals Ahuja Medical CenterComment on above:Result Comment: Heparin therapeutic range (represented by Anti-Factor Xa activity of 0.2 - 0.4 U/mL) corresponds to PTT of 56.6 - 109.0 sec.Performed By: #### 8002320, 2660386, 07636226, 6264829, 66204180 ####[facility] Lab [address] [place], [place] [address]CYM Coag (PPP) [Relative time]1.0 {INR} Invalid Interpretation CodeGerman HospitalComment on above:Result Comment: INR results are specifically intended to assess patients stabilized on long-term Anticoagulation therapy suggested INR?s ?Less Intensive Anticoagulation? 2.0 ? 3.0 Conventional Range 3.0 ? 4.5Performed By: #### 4101807, 9463868, 08904918, 2727471, 60711762 ####[facility] [address] [place], [place] [address]VH Coag (PPP) [Time]11.9 second(s)Qkcsoh73.2-12.9German HospitalComment on above:Performed By: #### 0327469, 2991750, 65770860, 4819380, 45441520 ####[address] [address]MF With Cult Reflexon 90-82-6362Xjxznfiav Ql (U) NegativeNormalNegativeGerman HospitalComment on above:Performed By: #### 25119201 ####[address] [address]Lsciuwh (U)CLEARNormalClearGerman HospitalComment on above: Performed By: #### 71860630 ####[address] [address]Xhuby (U)STRAWInvalid Interpretation CodeGerman HospitalComment on above:Performed By: #### 90140918 ####[address] [address]Wgcdadqpwd cells.squamous LM.HPF (Urine sed) [#/Area]0-9Gjvauc1-7Pyftcf [facility] CenterComment on above:Performed By: #### 21627822 ####[address] [address]Qiqqaiw Test strip (U) [Mass/Vol]3+AbnormalNegativeGerman HospitalComment on above: Performed By: #### 68282221 ####[address] [address]Wqtnbomwin Ql (U)NegativeNormalNegRiverview Health InstituteComment on above:Performed By: #### 82055800 ####[address] [address]Alijsdj (U) [Mass/Vol] NegativeNormalNegativeGerman HospitalComment on above:Performed By: #### 06951994 ####[address] [address]Tfpupjj.plasma/[place].RBC (Bld) [Mass ratio]8-21Kmtuls3-4Fdpssw [facility] CenterComment on above:Performed By: #### 81628169 ####[address] [address]Fcdpcef Ql (U)Negative NormalNegativeGerman HospitalComment on above:Performed By: #### 20295927 ####[address] [address]pG (U)5.5 [pH]Invalid Interpretation Code5.0-9.0[facility] Comment on above:Performed By: #### 21774413 ####[address] [address]Tomtkgw (U) [Mass/Vol]NegativeNormal NegativeGerman HospitalComment on above:Performed By: #### 00482313 ####[address] [address] Specific gravity (U) [Rel density]1.020Invalid Interpretation Code1.005-1.030 German HospitalComment on above:Performed By: #### 05502624 ####[address] [address]Lgho of Urine collection methodClean CatchNoMercy Health Perrysburg HospitalComment on above:Performed By: #### 91217974 ####[address] [address]Sgzyebangjpj Qn (U)0.2 {Cinthya'U}/dLNormal0.0-1.0 German HospitalComment on above:Performed By: #### 45985259 ####[address] [address]JPZ Auto Ql (U)NegativeNormalNegativeGerman HospitalComment on above: Performed By: #### 44297746 ####[address] [address]MFE LM.HPF (Urine sed) [#/Area]8-6Llgoqk1-6FerueoUniversity Hospitals Ahuja Medical CenterComment on above:Performed By: #### 07178459 ####[facility] [address], [place] [address]OV Chest 2 Views on 94-21-0943FF Chest 2 ViewsExam Date/Time: 11/16/2021 15:09 EDT Reason for Exam: [...] Toy Hubbard M.D. Transcribed by: ESTELLE Technologist: KymberlyGerman HospitaleGAntonia 87-84-7732LTJ/1.73 sq M.predicted among blacks MDRD (S/P/Bld) [Vol rate/Area] mL/min/{1.73_m2}Normal>=59German HospitalComment on above:Order Comment: Order added by Discern Expert.Result Comment: eGFR is race adjusted. AA=.Performed By: #### 0391947, 9828528, 39982182, 1417029, 76027805 ####[facility] [address] [place], [place] [address]KRN/1.73 sq M.predicted among non-blacks MDRD (S/P/Bld) [Vol rate/Area] mL/min/{1.73_m2}Normal>=59German HospitalComment on above:Order Comment: Order added by Discern Expert.Result Comment: Chronic kidney disease could be indicated at eGFR's of less than 60 mL/min/1.73m2. Kidney failure is indicated at less than 15 mL/min/1.73m2.Performed By: #### 2413078, 1268441, 57543137, 7793586, 37892808 ####[facility] [address] [place], [place] [address]Uqb-Zkuglnmiwmvso Formon 22-92-1186Gwv- Certification [id number]#1.00CD:127Norocco German HospitalFormson 86-65-8899Gaegy [id number]#1.00CD:127[facility] HospitalPhysician Referralon 03-47-9221Aaeehchui Referral [id number]#1.00CD:127[facility] HospitalPatient Educationon 70-09-1623Xziwkng EducationUrology Urinary Frequency, Adult Urinary frequency means urinating [...] keep your urine pale yellow. ? Take jxtx-tbv-wqbqgqb or prescription medicines. ? Eat foods that are high in fiber, such as beans, whole grains, and fresh fruits and vegetables. ? Limit foods that are high in fat and processed sugars, such as fried or sweet foods. General instructions ? Take cjrr-vzl-entroqr and prescription medicines only as told by [...] muscles that help control urination. ? Take wrzu-qhp-ojvytbf and prescription medicines only as told by [...] 05/17/2010 Document Revised: 01/28/2019 Document Reviewed: 01/28/2019 [employer] Patient Education ? 2020 [employer] Balanitis Balanitis is swelling and irritation (inflammation) of the head of the penis (glans penis). The condition may also cause inflammation of the skin around the glans penis (foreskin) in men who have notbeen circumcised. It may develop because of an [...] men. Not cleaning the glans penis and foreskinwell can result in buildup of bacteria, viruses, [...] congestive heart failure, diabetes, (more content not included)...[facility] HospitalUrology Office/Clinic Noteon 74-24-5095Swpooyu Office/Clinic NoteChief Complaint Patient in office due to foreskin [...] ABX, he would have symptoms again. States attimes his pins and needles sensation is so [...] denies incontinence, denies genital sores, denies decreased libido,and denies erectile dysfunction. Physical Exam Vitals & [...] or organomegaly, no hernia. This patient has aprotuberant abdomen and is obese. Genitourinary: normal scrotum, [...] pull his foreskin back. Pt states he hasconstant infection and ABX relieve the symptoms for a short period of time. Pt states this has beengoing on for 5 years. Will schedule Circumcision. The procedure risks, benefits, and details have been discussed with thepatient. These include bleeding, infection, potential separation of the skin edges (which will healin), change in penile sensation which may affect sexual intercourse and erections, as well as the need for additional procedures, among others. Full informed consent has been obtained. Will order General anesthesia. 2. Dysuria (R30.0: Dysuria) When urine is cloudy. 3. Nocturia (R35.1: Nocturia) 6x a night Patient Education Urinary Frequency, Adult UrielaniAnn Meier, personally scribed for Dr. Duque on 09/04/2021 [...] heart disease: Father. Diabet (more content not included)...[facility] Brent[facility] HospitalComment on above:Result Comment: Electronically Signed By: Neto Keith MD, Landen Chapa\.br\Date and Time Signed: 09/04/2212:15 EST\.br\Electronically Co-Signed By: Ann Rudd MA.br\Date and Time Co-Signed: 09/04/21 09:00 EST Vital Signs Date TimeVital SignValuePerforming TuzpdeasgVodahzgy71-93-2702 15:33-0400Blood Pressure LocationGINA VICTORIA [facility] 07-14-2022 15:33-0400Diastolic blood pespjiss04 mm[Hg] GINA VICTORIA [facility] 07-14-2022 15:33-0400Heart rate82 /minGINA VICTORIA [facility] 07-14-2022 15:33-0400Systolic blood wsqursdq178 mm[Hg] GINA VICTORIA [facility] 04-21-2022 09:55-0400Blood Pressure LocationLanden Duque Jr. [facility]04-21-2022 09:55-0400Body .34 [degF]Landen Duque Jr. [facility]04-21-2022 09:55-0400 BP/Pulse Patient PositionLanden Duque Jr. [facility]04-21-2022 09:55-0400 Diastolic blood sqyevlke44 mm[Hg]Landen Duque Jr. [facility]04-21-2022 09:55-0400Heart rate78 /Josselyn Duque Jr. [address] [place], [place] 120[address]504-21-2022 09:55-0400 Respiratory rate18 /Josselyn Duque Jr. [address] [place], [place] 1209504-21-2022 09:55-8385OyY9% (BldA) [Mass fraction]98 %Landen Duque Jr. [address] [place], [place] [address]04-21-2022 09:55-0400 Systolic blood odfpapdp178 mm[Hg]Landen Duque Jr. [address] [place], [place] [address]04-21-2022 09:15-0400Blood Pressure LocationLanden Duque Jr. [address] [place], [place] [address]04-21-2022 09:15-0400Body anbwysucocq31.34 [degF]Landen Duque Jr. [address] [place], [place] [address]04-21-2022 09:15-0400 Diastolic blood mm[Hg]Landen Duque Jr. [address] [place], [place] [address]04-21-2022 09:15-0400Heart rate73 /Josselyn Duque Jr. [address] [place], [place] [address]04-21-2022 09:15-0400Mean blood fkxmudqg171 mm[Hg]Landen Duque Jr. [address] [place], [place] [address]04-21-2022 09:15-0400 Respiratory rate16 /Josselyn Duque Jr. [address] [place], [place] [address]04-21-2022 09:15-0192KaZ8% (BldA) [Mass fraction]96 %Landen Duque Jr. [address] [place], [place] [address]04-21-2022 09:15-0400 Systolic blood zuwkwbth916 mm[Hg]Landen Duque Jr. [address] [place], [place] [address]04-21-2022 09:05-0400Blood Pressure Macey Duque Jr. [address] [place], [place] 3916904-21-2022 09:05-0400Body hebjecchqps00.52 [degF]Landen Duque Jr. [address] [place], [place] [address]04-21-2022 09:05-0400 Diastolic blood mm[Hg]Landen Duque Jr. [address] [place], [place] [address]04-21-2022 09:05-0400Heart rate79 /Josselyn Duque Jr. [address] [place], [place] [address]04-21-2022 09:05-0400 Respiratory rate13 /Josselyn Duque Jr. [address] [place], [place] 3916904-21-2022 09:05-9595DvK2% (BldA) [Mass fraction]99 %Landen Duque Jr. [address] [place], [place] [address]04-21-2022 09:05-0400 Systolic blood mm[Hg]Landen Duque Jr. [address] [place], [place] [address]04-21-2022 08:35-0400 Respiratory rate12 /Josselyn Duque Jr. [address] [place], [place] 3916904-21-2022 08:30-0400 Respiratory rate13 /Josselyn Duque Jr. [address] [place], [place] 3916904-21-2022 08:25-0400 Respiratory rate13 /Josselyn Duque Jr. [address] [place], [place] 3916904-21-2022 06:08-0400Mean blood qdopukwa016 mm[Hg]Landen Duque Jr. [address] [place], [place] [address]04-21-2022 06:08-0400Heart rate78 /Josselyn Duque Jr. [address] [place], [place] [address]04-21-2022 06:07-0400 BP/Pulse Patient PositionLanden Duque Jr. [address] [place], [place] [address]16904-21-2022 06:07-0400Mean blood mm[Hg]Landen Duque Jr. [address] [place] [address] Encounters Encounter DateEncounter TypeCare ProviderFacilityStart: 18-26-1114Kiwbaylmm for general adult medical examination without abnormal findingsDR MONIJORGE L Nieves [facility]Start: 06-21-2022 End: 64-59-1390elbncbpyasES MONI HOYFacility:I3Vupda: 06-21-2022 End: 09-75-1543Fppgvdaed for general adult medical examination without abnormal findingsDR MONI HOYFacility:C3Anmaa: 03-11-2022 End: 91-42-8087Glodgcb encounter procedureLanden Duque Jr. [facility] Start: 02-14-2022 End: 64-95-4667Fqtsdaf encounter procedureGINA VICTORIA [facility] Start: 11-22-2021 End: 33-36-5673Jcxbwmfvh to same day surgery Elías Duque Jr. [facility] Start: 09-11-2017 End: 02-12-0059SfifbntqyxUSREXDN PHYSICIANFacility:[facility] Procedures DateProcedureProcedure DetailPerforming ClinicianStart: 65-75-0160KGC screening DR MONI Powers on above:Performed By: #### PSASC #### [facility] [address] [place] [address] Dr. Walker ChangStart: 15-86-1713LhgqtmctrbipYuzzmh Smith Jr. colonoscopyLanden Duque Jr. Immunizations Immunization DateImmunizationNotesCare JiawhnrgLksjhpfl31-98-8519aoseuiycn virus vaccine, unspecified formulationJEVENICE VICTORIA [facility] 04801386-05-1246GMXP-XaA-1 mRNA (tozinameran 5y-11y) vaccine GINA VICTORIA [facility] [employer] 857569-44-3644PSGL-MnQ-6 mRNA (tozinameran 5y-11y) vaccine GINA VICTORIA [facility] [employer] Payers DatePayer CategoryPayerPolicy [id number] Social History DateTypeDetailFacilityTobaccoCurrent vaping or e-cigarette use Smokeless Tobacco Use:. [facility] Functional Status LocfHscqwnjnjpWoidylPjoukmbd53-68-0764Wzbnuoyyds StatusN/AExec[facility] [employer] 080373-82-7480Ykwwegjdsr StatusN/AExec[facility] [employer] Hospital Discharge instructions 03-11-2022 Note Date & QcwnHvsqPecgrsdu35-29-3697 Hospital Discharge instructions Patient Education 03/11/2022 11:36:54 Erectile Dysfunction [...] Follow these instructions at home: Medicines Take yrvb-ojd-nhzqwjz and prescription medicines only as told by your health care provider. Do not increase the dosage without first discussing it with your health care provider. If you are using self-injections, perform injections as directed by your health care provider. Makesure to avoid any veins that are on [...] come with the pump and discuss any questionswith your health care provider. Keep all follow-up [...] and may include medicines, hormone therapy, surgery, orvacuum pump. You may need follow-up visits to [...] 07/18/2001 Document Revised: 07/03/2018 Document Reviewed: 08/06/2017 [employer] Patient Education 2019 [employer] Follow Up Care 02/14/2022 16:18:15 With:Neto Keith MD, ANUJA Aleman Address: [facility] [address], [place] [address]- When: Unknown [facility] Jose Alberto Hospital Discharge instructions 02-14-2022 Note Date & UmgjStxzDzlzhamb00-95-9876 Hospital Discharge instructions Patient Education 02/14/2022 16:03:45 [...] a personal one. It is often based onreligious, social, or cultural beliefs. Circumcision is most often done in the first few days of life, but it may also be done later in life. In general: All healthy boys with a normal penis formation can be circumcised in the first few days after . Boys who are born early (prematurely) or who are ill should not be circumcised until they are olderand stronger. Boys with certain deformities of the [...] 07/18/2001 Document Revised: 01/04/2019 Document Reviewed: 01/04/2019 [employer] Patient Education 2020 [employer]. Follow Up Care 12/13/2021 14:42:17 With:JULIEN BRONSON, GINA Jerry, URL Address: [facility] [address] [facility] [place] [address] [phone] When:03/17/2022 [facility] Jose Alberto Evaluation + Plan note 11-22-2021 Note Date & OtwkWsvsPuqrgkrd98-70-1745 Evaluation + Plan noteExtracted from: Title:ANES POSTOP MAC/GEN NOTEAuthor:Yassine Plaza JR, DODate:11/22/21 Plan Transfer/ Discharge: Patient can be discharged from PACU when criteria met. Condition good. Extracted from:Title:ANES PREOP GEN ADULT NOTEAuthor:Yassine Plaza JR, DO Date:11/22/21 Plan [place] [employer] Anesthesiologists (ASA) physical status classification: Class III. Anesthetic Preoperative Plan Anesthesia: General. . Anesthetic plan, risks, benefits, and alternatives discussed with the patient and/or family. Pt. and/or family present and agree to proceed as planned.. Discussed the importance of abstaining from tobacco products, and offered counseling if desired.[facility] Hospital Discharge instructions 11-22-2021 Note Date & YwdlYecnZsnyinvz37-06-0242 Hospital Discharge instructions Patient Education 11/22/2021 09:07:42 Post Op Patient Instructions - FT (Custom) Follow Up Care 11/06/2021 15:37:23 With:GINA VICTORIA Address: [address] [place] [address] Business (1) When:2 to 4 weeks [facility] History and physical note 11-07-2021 Note Date & HzmpYjulJxjzgmrc37-17-2909 Note [id number]#1.00CD:127[facility] Evaluation + Plan note Note Date & TypeNoteFacilityEvaluation + Plan note Future Appointments Appointment Date:03/11/2022 11:15:00 AM Scheduled Provider:Neto Keith MD, Landen Chapa Location:[facility] Appointment Type:URO Office Visit [facility] Hospital course Narrative Note Date & TypeNoteFacilityHospital course Narrative No data available for this section [facility] Progress note Note Date & TypeNoteFacilityProgress note No data available for this section [facility] Summary Purpose Family History No Family History Records FoundNo Family History Records FoundNo Family History Records Found Advance Directives No Advanced Directives Records FoundNo Advanced Directives Records FoundNo Advanced Directives Records Found Additional Source Comments (unrecognized sect ion and content) No Status Records FoundNo Status Records FoundNo Status Records Found INFORMATION SOURCE (unrecogn ized section and content) DATE CREATED AUTHOR 01/22/2018 [facility] DATE CREATED AUTHOR AUTHOR'S ORGANIZ ATION 03/12/2022 [facility] DATE CREATED AUTHOR AUTHOR'S ORGANIZ ATION 06/26/2022 [facility] Care Team (unrecognized sect ion and content) Personnel Name: Moni Espino MD Address: [address] [place] [address] Personnel Name: Moni Espino MD Address: [address] [place] [address] FOR RECORDS PERTAINING TO PATIENTS WHO ARE [...] BE BASED ON THE PRIMARY CLINICAL RECORDS. [facility] provides no warranty or guarantee of the accuracy or completeness of information in this document.
--- OUTSIDE RECORDS SUMMARY | 2025-06-25 06:25 | XMS_ITS | Patient Health Record ---
Author Organization [facility] Address [address] [place] [address] Care Team Providers Care Band Top Maker Name Role Phone Simón Espino Primary Care Provider [phone] Allergies Allergen (clinical drug ingredient) Drug/Non Drug Allergy documented on EMR Reaction Allergy Type Onset Date Status PenicillinUnknownDrug AllergyActive Reason For Referral No Information Medications Medication SIG (Take, Route, Frequency, Duration) Notes Start Date End Date Status Levothyroxine Sodium 175 MCG TAKE 1 TABL ET BY MOUTH EVERY DAY IN THE MORNING ON AN EMPTY STOMACH FOR 30 DAYS; Duration: 90 days ActivemetFORMIN HCl 500 MGTAKE 1 TABLET ONCE DAILY WITH A MEAL; Duration: 90 daysActivelevETIRAcetam 750 MG1 tablet Orally twice a day; Duration: 90 days ActiveSimvastatin 20 MGTAKE 1 TABLET EVERY EVENING Once a day; Duration: 90 days ActiveMetoprolol Tartrate 100 MG1 tablet with food Orally Twice a day; Duration: 90 daysActiveJardiance 25 MGTAKE 1 TABLET ONCE DAILY; Duration: 90 daysActive Pioglitazone HCl 45 MGTAKE 1 TABLET ONCE DAILY; Duration: 90ActiveGlimepiride 4 MGTAKE 2 TABLETS Orally Once a day; Duration: 90 daysActiveEliquis 5 MGTake 1 tablet Orally twice daily; Duration: 90 days5ActiveOzempic (0.25 or 0.5 MG/DOSE) 2 MG/3ML0.5mg Subcutaneous once weekly; Duration: 28 days09/23/2024 ActivePantoprazole Sodium 40 MG1 tablet 1/2 to 1 hour before morning meal Orally Once a day; Duration: 90 daysActiveZovirax 5 %1 application Externally Five times a day; Duration: 4 days5ActivevalACYclovir HCl 1 GM1 tablet Orally tid; Duration: 10 days5ActiveVerapamil HCl ER 240 MG1 tablet Orally bid; Duration: 30 daysActive Immunizations Vaccine Route Administration Date Status Comme nts Spikevax Moderna Syringe Pre -Filled 50 mcg/0.5 mL Unknown 05/30/2023 Administered Social History Tobacco Use: Social History Observation Description Date Details (start date - stop date) Former Smoker NA - 09/03/2014 Tobacco Use/Smoking Question Answer Notes Patient is a former smoker When did you stop smoking?09/03/2014How long has it been since you last smoked? 5-10 yearsAlcohol Screen (Audit-C) Question Answer Notes Did you have a drink containing alcohol in the p ast year? No Cdwxdp7NduzkhezbgyitgKtwfgfnaABABP-G (Standard) Question Answer Notes Did you have a drink containing alcohol in the p ast year? No Kfuzcc9YijpsnlpeistmpAgbltlul Problems Problem Type SNOMED Code ICD Code Onset Dates Problem Status W/U Status Risk Notes Problem Palpitations (24970971) Palpitations (R00 .2) ActiveconfirmedProblemAtrial flutter (5872964)Atrial flutter (I48.92)Active confirmedProblemHypertension (12082882)Hypertension (I10)ActiveconfirmedProblem Hypothyroidism (29542736)Hypothyroidism (E03.9)ActiveconfirmedProblemInsomnia (869408154)Insomnia (G47.00)ActiveconfirmedProblemPericardial effusion (475996211)Pericardial effusion (I31.9)ActiveconfirmedProblemSyncope (162323389) Syncope (R55)ActiveconfirmedProblemWell adult (387972665)Well adult (Z00.00) ActiveconfirmedProblemShingles (6628838)Shingles (B02.9)ActiveconfirmedProblem Ventricular hypertrophy (102973834)Ventricular hypertrophy (I51.7)Active confirmedProblemMeningoencephalitis (5702264)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)Active confirmedProblemPure hypercholesterolemia (205036002)Pure hypercholesterolemia (E78.00)ActiveconfirmedProblemType II diabetes mellitus without complication (552938853)Diabetes (E11.9)Activeconfirmed Vital Signs Blood pressure diastolic 84 mm Hg 06/16/2025 Uozrkg62 in06/16/2025lood pressure mm Hg06/16/20254046Tuwnda886.8 lbs 06/16/2025BMI45.96 kg/m206/16/2025 Procedures Procedure Date Ordered Date Performed Result Body Sit e Sleep study - Diagnostic Polysonogram 09/09/2024 N/AECG with Nrqxzmjkgbxmnh51/10/2025N/ACARDIO Icumojrrixdgjf53/10/2025N/ACARDIO Stress Test - Yuokoormhf05/10/2025N/A Encounters Encounter Location Date Provider Diagnosis [facility] [address] [place] [address] 07/08/2024 [facility] [place] [address] 07/19/2024oug [facility] [place] [address]/Doug HoyWell adult Z00.00 and Insomnia G47.00[facility] [place] [address] Simón HoyPalpitations R00.[address] [place] [address]/06/2025Doug [facility] [place] [address]/06/2025Doug [facility]oyPalpitations R00.2[facility] [place] [address]/ Simón [facility] [place] [address]/Doug [facility] [place] [address]/02/2025Doug HoyAtrial flutter I48.92[facility] [facility] [address]/03/2025Doug Hoy [address] [place] [address] 05/12/2025[facility] [address] [place] [address]/Doug HoyWell adult Z[address] [place] [address]/Doug HoyWell adult Z00.[address] [address] 02/10/2025Doug HoyPalpitations R00.2 and Atrial flutter I48.[address] [address]/Doug Hoy Shingles B02.[address] [place] [address]/Doug HoyPure hypercholesterolemia E78.00 ; Hypertension I10 ; Well adult Z00.00 ; Hypothyroidism E03.9 and Atrial flutter I48.[address] [address]/01/2025 Simón HoyInsomnia G47.00 Assessments Encounter Date Diagnosis (ICD Code) Assessment Notes Treatment Notes Treatment Clinical Notes Section Notes 09/09/2024 Insomnia (ICD-10 - G47.00) 02/10/2025Palpitations (ICD-10 - R00.2)02/10/2025trial flutter (ICD-10 - I48.92)04/25/2025Shingles (ICD-10 - B02.9)06/16/2025Pure hypercholesterolemia (ICD-10 - E78.00)06/16/2025Hypertension (ICD-10 - I10)06/16/2025Well adult (ICD- 10 - Z00.00)09/23/2024Well adult (ICD-10 - Z00.00)02/10/2025Palpitations (ICD-10 - R00.2)02/11/2025Palpitations (ICD-10 - R00.2)05/10/2025trial flutter (ICD-10 - I48.92)06/17/2025Well adult (ICD-10 - Z00.00)06/17/2025Well adult (ICD-10 - Z00.00)09/23/2024Insomnia (ICD-10 - G47.00)06/16/2025Hypothyroidism (ICD-10 - E03.9)06/16/2025trial flutter (ICD-10 - I48.92) Plan Of Treatment Pending Test Test Name Order Date CMP (COMPLETE METABOLIC PANEL) 3 CMP (COMPLETE METABOLIC PANEL) 4 HEMOGLOBIN A1C (GLYCO) 05/28/2023 HEMOGLOBIN A1C (GLYCO) 05/24/2024 HEMOGLOBIN A1C (GLYCO) 06/16/2025 INSULIN, TOTAL 05/28/2023 LIPID PANEL (CHOL/TRIG/HDL/LDL) 05/24/20 24 LIPID PANEL (CHOL/TRIG/HDL/LDL) 05/28/20 23 LIPID PANEL (CHOL/TRIG/HDL/LDL) 06/16/20 25 CBC WITH DIFF 05/28/2023 CBC WITH DIFF 05/24/2024 PSA, PROSTATE-SPECIFIC ANTIGEN 3 URIC ACID 06/16/2025 ECG with Interpretation 02/10/2025 CARDIO Stress Test - Cardiolite 02/11/20 CARDIO Echocardiogram 02/10/2025 Sleep study - Diagnostic Polysonogram PSA, TOTAL 05/24/2024 THYROID PANEL (T4/TSH/FREE T3) 4 THYROID PANEL (T4/TSH/FREE T3) 3 THYROID PANEL (T4/TSH/FREE T3) 5 THYROID PANEL (T4/TSH/FREE T3) 3 PSA, SCREENING 06/16/2025 CMP (COMP MET DOMINIQUE) w/eGFR CKD-EPI 2024 CBC WITH DIFF 06/16/2025 Insurance Providers Payer Name Payer Address Payer Phone Subscriber Number Group Number Insured Name Patient Relationship to Insured Coverage Start Date Coverage End Date [employer] PPO PLUS LOCAL PLAN [address] [place] [address] [id number] Catherine Ni - patient is the insured Medical (General) History Medical History History ICD Code Pure hypercholesterolemia E78.00 Well adult Z00.00 Palpitations R00.2 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
--- OUTSIDE RECORDS SUMMARY | 2025-06-25 06:25 | XMS_ITS | Clinical Summary ---
Author Organization [employer] s tem Address [id number] [place] [address] Care Team Providers Care Rig Superintendent Name Role Phone Edgard Espino MD Primary Care Provider [phone] Allergies Active AllergyReactionsCriticalityNoted UkueFhozwmeqTmxxrpsbkpb81/31/2018 Medications MedicationSigDispense QuantityRefillsLast FilledStart DateEnd DateStatus levothyroxine (SYNTHROID, LEVOTHROID) 200 MCG tablet Take 200 mcg by mouth daily.Active glimepiride (AMARYL) 4 mg tablet Take 4 mg by mouth every morning before breakfast.Active verapamil SR (CALAN-SR) 180 mg CR tablet Take 180 mg by mouth nightly.Active metoprolol tartrate (LOPRESSOR) 100 mg tablet Take 100 mg by mouth 2 (two) times a day.Active metFORMIN (GLUCOPHAGE) 500 mg tablet Take 1 tablet by mouth 2 (two) times a day with meals.Active Active Problems ProblemNoted DateDiagnosed DateRespiratory wnyqihe5009/03/2017Altered mental pglmef3609/03/2017 Family History Medical HistoryRelationNameCommentsStrokeFatherThyroid cancerMotherRelationName StatusCommentsFatherDeceasedMotherDeceased Social History Tobacco UseTypesPacks/DayYears UsedDateSmoking Tobacco: Every DaySmokeless Tobacco: Current Comments:vaps daily Alcohol UseStandard Drinks/WeekCommentsNo0 (1 standard drink = 0.6 oz pure alcohol)ChildcareAnswerDate DnfifpzuKlpfgqupbBcqztfx60/12/2019EmploymentAnswer Date TstzsmwxMwlphgyffcTmrfzkm01/12/2019Purpose - LifeAnswerDate RecordedPurpose and direction in fnvbWuvfvqe57/11/2021ex and Gender InformationValueDate RecordedSex Assigned at BirthNot on fileLegal MsyXijd7503/09/2015 11:58 AM EDT Gender IdentityNot on fileSexual OrientationNot on file Last Filed Vital Signs Vital SignReadingTime TakenCommentsBlood Lgmpbvcq022/8609/15/2017 11:34 AM EST Ufyhq300409/15/2017 11:34 AM MVFQgnwfuvtutl08.8 ??C (98.2 ??F)09/15/2017 11:34 AM ESTRespiratory Pepz188609/15/2017 11:34 AM ESTOxygen Kdkfzusvuc85%09/15/2017 11:34 AM ESTInhaled Oxygen Concentration--Ltvqft040.8 kg (275 lb 2.2 oz)09/10/2017 3:00 AM ZAHEdpiqn721 cm (5' 6.14 )09/07/2017 3:39 PM ESTBody Mass Index44.22 09/07/2017 3:39 PM EST Plan of Treatment Health MaintenanceDue DateLast DoneCommentsDepression Gdpzqbzyi24/24/1981Tobacco Jzdyewxcb49/24/1981Adult BMI Cpsudbhcc17/24/1987DTaP,Tdap and Td Vaccines (1 - Tdap)1988Zoster (Shingles) Vaccine (1 of 2)2019COVID-19 Vaccine ( - season)/08/2020, 11/06/2020, 10/16/2020Influenza Vaccine /, 05/30/2021 Medical Devices Not on file Insurance Advance Directives * Full Code (Latest Code Status on File) Date ActivatedDate InactivatedComments09/03/2017 3:10 09/15/2017 5:43 PM Care Teams Team MemberRelationshipSpecialtyStart DateEnd Date Edgard Espino MD PCP - General09/11/17
[2025-06-25 06:42] LABS: Hematocrit 47.5 % (42.0-54.0); Hemoglobin 16.2 g/dL (14.0-18.0); Immature Granulocytes Abs Auto 0.05 10^3/uL (0.00-0.03); Immature Granulocytes Pct Auto 0.7 % (0.0-0.5); Lymphocytes Absolute Auto 2.0 10^3/uL (1.2-3.8); Mean Corpuscular HGB Conc 34.1 g/dL (29.9-35.2); Mean Corpuscular Hemoglobin 29.0 pg (25.9-34.0); Mean Corpuscular Volume 85.0 fL (80.0-94.0); Platelet Count 166 10^3/uL (150-450); Red Blood Count 5.59 10^6/uL (4.70-6.10); White Blood Count 6.8 10^3/uL (4.0-11.0)
[2025-06-25 10:19] LABS: Alanine Aminotransferase 36 U/L (16-63); Albumin Globulin Ratio 1.0; Albumin Level 3.6 g/dL (3.4-5.0); Alkaline Phosphatase 73 U/L (46-116); Anion Gap 13.5; Aspartate Amino Transferase 19 U/L (15-37); Blood Urea Nitrogen 17.0 mg/dL (7.0-18.0); Calcium 8.7 mg/dL (8.5-10.1); Carbon Dioxide 26.5 mmol/L (21.0-32.0); Chloride 100 mmol/L (98-107); Cholesterol 154 mg/dL (<=200); Estimated GFR (African America >60 (>=60 mL/min/1.73m^2); Estimated GFR (Non-African Ame >60 (>=60 mL/min/1.73m^2); Free T3 2.63 pg/mL (2.18-3.98); Globulin 3.6 g/dL; Glucose 140 mg/dL (74-106); HDL Cholesterol 33 mg/dL (40-60); Potassium 4.0 mmol/L (3.5-5.1); Sodium 136 mmol/L (136-145); Thyroid Stimulating Hormone 0.312 uIU/mL (0.358-3.740); Total Protein 7.2 g/dL (6.4-8.2); Triglycerides 339 mg/dL (<=150); Uric Acid 4.8 mg/dL (3.5-7.2); VLDL CHOLESTEROL 67.8 mg/dL
== END 2025-06-25 06:20 | disposition home or self-care (01) ==
PROVIDERS: PCP Family Medicine; Visit Provider Family Medicine
DX: Z00.00 Encounter for general adult medical examination without abnormal findings (principal); Z12.5 Encounter for screening for malignant neoplasm of prostate
CPT/HCPCS: 36415; 80053; 80061; 83036; 84436; 84443; 84481; 84550; 85025; G0103